=== PATIENT | female | born 1965 | race Caucasian/White ===

== ENCOUNTER → 2016-09-29 | Outpatient (CLI) | payer OTHER, BC ==
[~2016-09-29] MED LIST: DULO60CA44 PO; KLN1X PO; MULT-506 PO; PROP10TA7 PO; SUMA100T16 PO
== END | disposition home or self-care (01) ==
LOC: C.RDSM 10:50
PROVIDERS: ATTEND Orthopaedic Surgery
DX: Z09 Encounter for follow-up examination after completed treatment for conditions other than malignant neoplasm (principal); M79.632 Pain in left forearm

== ENCOUNTER → 2016-10-27 | Outpatient (CLI) | payer OTHER, BC | END | disposition home or self-care (01) | LOC: C.RDSM 09:15 | PROVIDERS: ATTEND Orthopaedic Surgery | DX: S52.2 Fracture of shaft of ulna (principal); X58.XXXA Exposure to other specified factors, initial encounter ==

== ENCOUNTER → 2016-12-01 | Outpatient (CLI) | payer OTHER, BC | END | disposition home or self-care (01) | LOC: C.RDSM 07:00 | PROVIDERS: ATTEND Orthopaedic Surgery | DX: S52.2 Fracture of shaft of ulna (principal); X58.XXXD Exposure to other specified factors, subsequent encounter ==

== ENCOUNTER → 2016-12-29 | Outpatient (CLI) | payer OTHER, BC | END | disposition home or self-care (01) | LOC: C.RDSM 08:15 | PROVIDERS: ATTEND Orthopaedic Surgery | DX: S52.2 Fracture of shaft of ulna (principal); X58.XXXD Exposure to other specified factors, subsequent encounter ==

== ENCOUNTER → 2017-01-03 | Outpatient (CLI) | payer OTHER, BC ==
--- NOTE | 2017-01-03 08:29 | DIAGNOSTIC IMAGING REPORT ---
CT LEFT UPPER EXTREMITY WITHOUT CT DOSE: 434.92 mGy.cm CLINICAL HISTORY: Ulnar fracture. Nonunion. TECHNIQUE: Helical images were acquired in the transverse plane. Sagittal and coronal reformatted images were acquired. A dose lowering technique was utilized adhering to the principles of ALARA. COMPARISON STUDY: Conventional radiographic study dated 12/29/2016 FINDINGS: There is an internally fixated fracture of the ulna at the junction of the middle and distal one third. Fracture has been fixated with a metallic plate and 6 screws. There is no evidence of hardware failure. 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 Fracture margins are somewhat sclerotic and there is no bony bridging. There are multiple additional screw tract defects within the ulna, consistent with a prior metallic plate. IMPRESSION: Internally fixated fracture of the ulna at the junction of middle and distal one third. 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 Electronically signed by: Benton Singh M.D. 01/03/2017 8:28 AM Dictated Date/Time: 01/03/2017 8:22 AM
== END | disposition home or self-care (01) ==
LOC: C.CTS 08:02
PROVIDERS: ATTEND Orthopaedic Surgery
DX: S52.2 Fracture of shaft of ulna (principal); X58.XXXD Exposure to other specified factors, subsequent encounter

== ENCOUNTER → 2017-01-26 | Outpatient (CLI) | payer OTHER, BC | END | disposition home or self-care (01) | LOC: C.LAB1850 09:10 | PROVIDERS: ATTEND Orthopaedic Surgery | DX: S52.2 Fracture of shaft of ulna (principal); X58.XXXA Exposure to other specified factors, initial encounter ==

== ENCOUNTER → 2017-02-06 | Outpatient (CLI) | payer OTHER, BC ==
--- NOTE | 2017-02-06 14:32 | DIAGNOSTIC IMAGING REPORT ---
LEFT UPPER EXTREMITY WITHOUT CLINICAL HISTORY: 51 years-old Female presenting with GREENSTICK FX SHAFT L ULNA,DUAL ENERGY CT. TECHNIQUE: Multidetector CT of the left forearm and wrist was performed without the use of intravenous contrast. IV contrast: None. A dose lowering technique was used consistent with the principles of ALARA (as low as reasonably achievable). COMPARISON: 01/03/2017. CT DOSE (mGy.cm): The estimated cumulative dose is 234.55 mGy.cm. FINDINGS: Visual Journalist topogram: Internal fixation hardware along the distal ulna noted. Cortical compression plate and screw fixation of the distal ulnar metadiaphysis across the obliquely oriented distal diaphysis fracture. Callus does not bridge the fracture plane, which again demonstrates sclerotic smooth margins, unchanged since the prior exam. Few additional screw tracks also noted through the distal ulna. No angulation at the fracture site. No hardware breakage. The distal radial ulnar joint is intact. Slight negative ulnar variance with irregularity of the distal ulna possibly suggesting degenerative change. Radiocarpal and intercarpal articulations preserved. Normal muscle bulk. Carpal tunnel normal. IMPRESSION: No significant change in appearance of the internally fixated distal ulnar diaphysis fracture with no interval increase in callus formation. No bridging of the fracture plane, consistent with nonunion. Electronically signed by: Jacob Pierre M.D. 02/06/2017 2:31 PM Dictated Date/Time: 02/06/2017 2:24 PM
== END | disposition home or self-care (01) ==
LOC: C.CTS 13:59
PROVIDERS: ATTEND Orthopaedic Surgery
DX: S52.2 Fracture of shaft of ulna (principal); X58.XXXD Exposure to other specified factors, subsequent encounter

== ENCOUNTER → 2017-02-20 | Outpatient (CLI) | payer BC ==
--- NOTE | 2017-02-20 13:34 | DIAGNOSTIC IMAGING REPORT ---
PELVIC COMPLETE NON OB HISTORY: 51 years-old Female . Acute generalized pelvic pain COMPARISON: None available TECHNIQUE: Multiple real-time sonography images of the deep pelvic structures were obtained transabdominally and transvaginally assessing grayscale appearance, color and spectral flow FINDINGS: TRANSABDOMINAL: Retroflexed uterus measures 4.8 x 1.9 x 2.4 cm. Endometrium measures 0.2 cm. Urinary bladder is partially collapsed. TRANSVAGINAL: Uterus measures 4.2 x 2.1 x 2.5 cm and is retroflexed. Endometrium measures 0.3 cm. Multiple nabothian cysts are seen, largest of which measures 1.1 x 0.8 x 1.1 cm. Right ovary measures 1.1 x 0.5 x 0.8 cm appears unremarkable and demonstrates arterial inflow and venous outflow. Left ovary measures 1.0 x 0.5 x 0.97 cm appears unremarkable and demonstrates arterial inflow and venous outflow. IMPRESSION: 1. Unremarkable sonographic appearance of the ovaries without evidence of torsion or mass. 2. Retroflexed uterus is noted without endometrial thickening. 3. Multiple nabothian cysts are seen, largest of which measures 1.1 x 0.8 x 1.1 cm. The above report was generated using voice recognition software. It may contain grammatical, syntax or spelling errors. Electronically signed by: Ceasar Cerna M.D. 02/20/2017 1:33 PM Dictated Date/Time: 02/20/2017 1:29 PM
== END | disposition home or self-care (01) ==
LOC: C.ULTR 10:54
PROVIDERS: ATTEND Physician Assistant
DX: R10.2 Pelvic and perineal pain (principal)

== ENCOUNTER → 2017-06-01 | Outpatient (CLI) | payer BC | END | disposition home or self-care (01) | LOC: C.RDSM 13:31 | PROVIDERS: ATTEND Orthopaedic Surgery | DX: S52.2 Fracture of shaft of ulna (principal); X58.XXXD Exposure to other specified factors, subsequent encounter ==

== ENCOUNTER → 2017-08-21 | Outpatient (CLI) | payer BC ==
[2017-08-21 13:30] LABS: BLOOD UREA NITROGEN 20 mg/dl (7-18); CALCIUM 9.3 mg/dl (8.5-10.1); CARBON DIOXIDE 27 mmol/L (21-32); CREATININE 1.25 mg/dl (0.60-1.20); GLUCOSE 95 mg/dl (70-99); POTASSIUM 4.4 mmol/L (3.5-5.1); SODIUM 138 mmol/L (136-145)
== END | disposition home or self-care (01) ==
LOC: C.LAB 12:16
PROVIDERS: ATTEND Physician Assistant
DX: R94.4 Abnormal results of kidney function studies (principal)

== ENCOUNTER → 2017-09-28 | Outpatient (CLI) | payer BC ==
[~2017-09-28] MED LIST changes: +CLB/200 PO; +PANT40TA PO
--- NOTE | 2017-09-28 16:13 | DIAGNOSTIC IMAGING REPORT ---
PA CHEST WITH ABDOMINAL SERIES CLINICAL HISTORY: Lower abdominal pain. Chronic constipation. FINDINGS: A PA chest radiograph is obtained. No prior studies are available for comparison at the time of dictation. The cardiomediastinal silhouette is unremarkable. The lungs and pleural spaces are clear. No pneumothorax is seen. The skeletal structures are osteopenic. The bony thorax is grossly intact. There is chronic appearing widening at the acromioclavicular joint. Fusion hardware is seen in the lower cervical spine. Supine and erect abdominal radiographs are obtained. No prior studies are available for comparison at the time of dictation. There is a nonobstructed abdominal bowel gas pattern. Moderate to severe colonic fecal retention is observed. No evidence of intraperitoneal free air is seen. There are no abnormal abdominal calcifications. Calcifications are noted in the left hemipelvis. Fallopian tube coils are noted in the pelvis. The lumbosacral spine and bony pelvis appear intact. IMPRESSION: 1. No active disease in the chest. 2. Nonobstructed abdominal bowel gas pattern noting moderate to severe constipation. Electronically signed by: Kraig Velasco M.D. 09/28/2017 4:12 PM Dictated Date/Time: 09/28/2017 4:09 PM
== END | disposition home or self-care (01) ==
LOC: C.RAD1850 15:42
PROVIDERS: ATTEND Registered Nurse
DX: K59.09 Other constipation (principal)

== ENCOUNTER → 2017-09-29 | Day surgery (SDC) | payer BC ==
[~2017-09-29] VITALS: Ht 188 cm; Wt 86.5 kg
[~2017-09-29] MED LIST changes: +LIDOCAINE HCL 2% 2 ML VIAL (20MG/ML) ONE; +PROPOFOL IV EMULSION 10 MG/ML 20 ML VIAL ONE; +SODIUM CHLORIDE 0.9% 500ML 500 ML IV ONE
[2017-09-29 11:02] VITALS: Ht 188 cm; Wt 86.5 kg
--- NOTE | 2017-09-29 11:24 | Endo History and Physical ---
History & Physical Date of Service: September 29, 2017. Chief Complaint: 52 yo CF who presents for EGD secondary to GERD. Referring Physician: Jessica Morrow PA-C History of Present Illness 52 yo CF who presents for EGD secondary to GERD. Past Medical History Arthritis, Anxiety, High Cholesterol, Depression Past Surgical History Hx Cardiac Surgery: No Hx Internal Defibrillator: No Hx Pacemaker: No Hx Abdominal Surgery: Yes Hx of Implantable Prosthesis: No Hx Post-Op Nausea and Vomiting: No Hx Cancer Surgery: No Hx Thoracic Surgery: No Hx Orthopedic: Yes Hx Urinary Tract Surgery: Yes Family History None Social History Smoking Status: Current Every Day Smoker Hx Substance Use: No Hx Alcohol Use: No Allergies Coded Allergies: Pregabalin (Unverified Allergy, Mild, hives/rash, 09/29/17) Tramadol (Unverified Adverse Reaction, Mild, GI SYMPTOMS, 02/26/15) Current Medications Reported Home Medications Medications Dose Route/Sig Max Daily Dose Days Date Category Protonix (Pantoprazole Sodium) 40 Mg Tab 40 Mg PO DAILY 09/29/17 Reported CeleBREX (Celecoxib) 200 Mg Cap 1 Cap PO DAILY 30 09/29/17 Reported Cymbalta (Duloxetine Hcl) 60 Mg Cap 60 Mg PO DAILY 02/26/15 Reported Multivitamin (Multivitamins) Tab 1 Tab PO DAILY 10/02/13 Reported Imitrex (Sumatriptan Succinate) 100 Mg Tab 100 Mg PO PRN 10/02/13 Reported Inderal (Propranolol HCl) 10 Mg Tab 10 Mg PO BID 10/02/13 Reported Clonazepam 1 Mg Tab 1 Mg PO BID 10/02/13 Reported Vital Signs Weight (Kilograms): 86.5 Height (Feet): 6 Height (Inches): 2 Date Time Temp Pulse Resp B/P (MAP) Pulse Ox O2 Delivery O2 Flow Rate FiO2 09/29/17 11:13 36.7 71 18 97/69 (78) 93 Room Air Physical Exam General Appearance: WD/WN, no apparent distress Respiratory/Chest: Auscultation: breath sounds normal Cardiovascular: Heart Auscultation: RRR Abdomen: Bowel Sounds: normal Inspection & Palpation: soft, non-distended, no tenderness, guarding & rebound Assessment and Plan Assessment: 52 yo CF who presents for EGD secondary to GERD. Plan: Proceed with EGD
--- NOTE | 2017-09-29 11:51 | Discharge Instructions ---
Endoscopy Patient Instructions Date / Procedure(s) Performed September 29, 2017. EGD Allergy Information Coded Allergies: Pregabalin (Unverified Allergy, Mild, hives/rash, 09/29/17) Tramadol (Unverified Adverse Reaction, Mild, GI SYMPTOMS, 02/26/15) Discharge Date / Findings September 29, 2017. Gastritis s/p biopsies Hiatal hernia Medication Instructions OK to resume all medications today as prescribed Reported Home Medications Medications Dose Route/Sig Max Daily Dose Days Date Category Protonix (Pantoprazole Sodium) 40 Mg Tab 40 Mg PO DAILY 09/29/17 Reported CeleBREX (Celecoxib) 200 Mg Cap 1 Cap PO DAILY 30 09/29/17 Reported Cymbalta (Duloxetine Hcl) 60 Mg Cap 60 Mg PO DAILY 02/26/15 Reported Multivitamin (Multivitamins) Tab 1 Tab PO DAILY 10/02/13 Reported Imitrex (Sumatriptan Succinate) 100 Mg Tab 100 Mg PO PRN 10/02/13 Reported Inderal (Propranolol HCl) 10 Mg Tab 10 Mg PO BID 10/02/13 Reported Clonazepam 1 Mg Tab 1 Mg PO BID 10/02/13 Reported Provider Instructions Activity Restrictions - No exercising or heavy lifting for 24 hours. - Do not drink alcohol the day of the procedure. - Do not drive a car or operate machinery until the day after the procedure. - Do not make any important decisions or sign important papers in 24 hours after the procedure. Following Day: - Return to full activity which may include returning to work/school. Diet Start your diet with liquids and light foods (jello, soup, juice, toast). Then eat your usual diet if not nauseated. Treatment For Common After Affects For mild abdominal pain, bloating, or excessive gas: - Rest - Eat lightly - Lie on right side Follow-Up Information Follow-up with Jessica Morrow PA-C as scheduled Anesthesia Information What You Should Know You have had a procedure that required some medicine to reduce anxiety and discomfort. This treatment is called moderate sedation. After receiving the treatment, you may be sleepy, but you will be able to breathe on your own. The effects of the treatment may last for several hours. Follow these instructions along with Activity/Diet recommendations noted above: * Do NOT do anything where dizziness or clumsiness would be dangerous. * Rest quietly at home today, then you can be up and about tomorrow. * Have a responsible person stay with you the rest of today. * You may have had an I.V. today. If so, you may take the dressing off later today. Recommendations Call your doctor if: * Trouble breathing * Continuous vomiting for more than 24 hours * Temperature above 101 degrees * Severe abdominal pain or bloating * Pain not relieved by pain medicine ordered * There is increased drainage or redness from any incision * A large amount of rectal bleeding greater than 2-3 tablespoons. (If you had a polyp/s removed or have hemorrhoids, a small amount of blood - from the rectum is to be expected.) * You have any unanswered questions or concerns. IN THE EVENT OF A SERIOUS EMERGENCY, GO TO THE NEAREST EMERGENCY ROOM Your discharge instructions were prepared by provider Jere Mitchell. Patient Instructions Signature Page Hamida Oneal Patient (or Guardian) Signature/Date: I have read and understand the instructions given to me by my caregivers. Caregiver/RN/Doctor Signature/Date: The above-named patient and/or guardian has received patient instructions on this date. + Original Patient Signature Page (only) stays with chart. Please make copy for patient.
--- NOTE | 2017-09-29 12:12 | GI REPORT ---
Patient Name: Hamida Oneal Procedure Date: 09/29/2017 11:41 AM Date of : 1965 Admit Type: Outpatient Age: 52 Gender: Female Attending MD: Jere Mitchell DO Procedure: Upper GI endoscopy Providers: Jere Mitchell DO Referring MD: Daniela Reagan Indications: Suspected gastro-esophageal reflux disease Medicines: Monitored Anesthesia Care Complications: No immediate complications. Estimated Blood Loss: Estimated blood loss: none. Procedure: Pre-Anesthesia Assessment: - Prior to the procedure, a History and Physical was performed, and patient medications and allergies were reviewed. The patient's tolerance of previous anesthesia was also reviewed. The risks and benefits of the procedure and the sedation options and risks were discussed with the patient. All questions were answered, and informed consent was obtained. Prior Anticoagulants: The patient has taken no previous anticoagulant or antiplatelet agents. ASA Grade Assessment: II - A patient with mild systemic disease. After reviewing the risks and benefits, the patient was deemed in satisfactory condition to undergo the procedure. After obtaining informed consent, the endoscope was passed under direct vision. Throughout the procedure, the patient's blood pressure, pulse, and oxygen saturations were monitored continuously. The On-site loaner was introduced through the mouth, and advanced to the second part of duodenum. The upper GI endoscopy was accomplished without difficulty. The patient tolerated the procedure well. Findings: The esophagus was normal. A small hiatal hernia was present. Localized moderate inflammation characterized by erosions and erythema was found in the gastric antrum. Biopsies were taken with a cold forceps for histology. The examined duodenum was normal. Impression: - Normal esophagus. - Small hiatal hernia. - Gastritis. Biopsied. - Normal examined duodenum. Recommendation: - Resume previous diet. - Continue present medications. - Await pathology results. - Return to GI office as previously scheduled. Jere Mitchell DO 09/29/2017 12:11:26 PM This report has been signed electronically. Note Initiated On: 09/29/2017 11:41 AM Number of Addenda: 0 I attest to the content of the Intraoperative Record and orders documented therein, exceptions below {[id number]}
[2017-09-29 12:25] VITALS: BP 93/72; PULSE 72; O2SAT 97
--- NOTE | 2017-09-29 13:08 | Anesthesiology Progress Note ---
Anesthesia Post Op Note Date & Time September 29, 2017 at 13:07 Vital Signs Pain Intensity: 0 Vital Signs Past 12 Hours Date Time Temp Pulse Resp B/P (MAP) Pulse Ox O2 Delivery O2 Flow Rate FiO2 09/29/17 12:25 72 18 93/72 (79) 97 Room Air 09/29/17 12:10 69 18 99/74 (82) 97 Room Air 09/29/17 11:55 70 18 89/57 (68) 92 Room Air 09/29/17 11:13 36.7 71 18 97/69 (78) 93 Room Air Notes Mental Status: alert / awake / arousable, participated in evaluation Pt Amnestic to Procedure: Yes Nausea / Vomiting: adequately controlled Pain: adequately controlled Airway Patency, RR, SpO2: stable & adequate BP & HR: stable & adequate Hydration State: stable & adequate Anesthetic Complications: no major complications apparent
--- NOTE | 2017-09-29 13:09 | Anesthesiology Progress Note ---
Anesthesia Post Op Note Date & Time September 29, 2017 at 13:08 Vital Signs Pain Intensity: 0 Vital Signs Past 12 Hours Date Time Temp Pulse Resp B/P (MAP) Pulse Ox O2 Delivery O2 Flow Rate FiO2 09/29/17 12:25 72 18 93/72 (79) 97 Room Air 09/29/17 12:10 69 18 99/74 (82) 97 Room Air 09/29/17 11:55 70 18 89/57 (68) 92 Room Air 09/29/17 11:13 36.7 71 18 97/69 (78) 93 Room Air Notes Mental Status: alert / awake / arousable, participated in evaluation Pt Amnestic to Procedure: Yes Nausea / Vomiting: adequately controlled Pain: adequately controlled Airway Patency, RR, SpO2: stable & adequate BP & HR: stable & adequate Hydration State: stable & adequate Anesthetic Complications: no major complications apparent
== END | disposition home or self-care (01) ==
LOC: C.GI 10:29
PROVIDERS: ATTEND Internal Medicine
DX: K21.9 Gastro-esophageal reflux disease without esophagitis (principal); K44.9 Diaphragmatic hernia without obstruction or gangrene; K29.70 Gastritis, unspecified, without bleeding; F41.9 Anxiety disorder, unspecified; F32.9 Major depressive disorder, single episode, unspecified

== ENCOUNTER → 2017-10-10 | Outpatient (CLI) | payer BC ==
[~2017-10-10] MED LIST changes: -LIDOCAINE HCL 2% 2 ML VIAL (20MG/ML) ONE; -PROPOFOL IV EMULSION 10 MG/ML 20 ML VIAL ONE; -SODIUM CHLORIDE 0.9% 500ML 500 ML IV ONE
--- NOTE | 2017-10-11 15:24 | MAMMOGRAPHY REPORT ---
BILATERAL DIGITAL SCREENING MAMMOGRAM TOMOSYNTHESIS WITH CAD: 10/10/2017 CLINICAL HISTORY: Routine screening. Patient has no complaints. TECHNIQUE: Breast tomosynthesis in addition to standard 2D mammography was performed. Current study was also evaluated with a Computer Aided Detection (CAD) system. COMPARISON: Comparison is made to exams dated: 09/17/2014 mammogram, 03/30/2010 mammogram - [facility], 12/16/2008, 11/27/2007, and 11/27/2007. BREAST COMPOSITION: The tissue of both breasts is heterogeneously dense, which may obscure small mas ses. FINDINGS: Mild involutional changes comparing to more remote prior mammograms. There are a few benig n calcifications in the breasts. No suspicious mass, architectural distortion or cluster of microcalc ifications is seen. IMPRESSION: ACR BI-RADS CATEGORY 2: BENIGN There is no mammographic evidence of malignancy. A 1 year screening mammogram is recommended. The pa tient will receive written notification of the results. Approximately 10% of breast cancers are not detected with mammography. A negative mammographic report should not delay biopsy if a clinically suggestive mass is present. Harriet Proctor M.D. ay/:10/10/2017 17:13:21 Local Telephone Operator: Saniya Chávez, M, [facility] letter sent: Normal 1/2 BI-RADS Code: ACR BI-RADS Category 2: Benign
== END | disposition home or self-care (01) ==
LOC: C.MAMM 10:57
PROVIDERS: ATTEND Physician Assistant
DX: Z12.31 Encounter for screening mammogram for malignant neoplasm of breast (principal)

== ENCOUNTER → 2017-12-26 | Outpatient (CLI) | payer BC ==
[~2017-12-26] MED LIST changes: +AMT100 PO; +LIPITOR PO
[2017-12-26 17:28] LABS: BASO % 0.2 %; BASO ABS # 0.02 K/uL (0-0.2); EOS % 1.4 %; EOS ABS # 0.15 K/uL (0-0.5); HEMATOCRIT 39.9 % (37-47); HEMOGLOBIN 13.3 g/dL (12.0-16.0); IG# 0.02 K/uL (0.00-0.02); LYMPH % 42.9 %; LYMPH ABS # 4.56 K/uL (1.2-3.4); MEAN CELL VOLUME 98.5 fL (80-100); MEAN CORPUSCULAR HEMOGLOBIN 32.8 pg (25-34); MEAN CORPUSCULAR HGB CONC 33.3 g/dl (32-36); MEAN PLATELET VOLUME 9.8 fL (7.4-10.4); MONO % 5.6 %; NEUT % 49.7 %; NEUT ABS # 5.27 K/uL (1.4-6.5); PLATELET COUNT 285 K/uL (130-400); RED CELL DISTRIBUTION WIDTH CV 13.8 % (11.5-14.5); RED CELL DISTRIBUTION WIDTH SD 49.5 fL (36.4-46.3); WHITE BLOOD COUNT 10.62 K/uL (4.8-10.8)
[2017-12-26 17:59] LABS: ALBUMIN 3.8 gm/dl (3.4-5.0); ALKALINE PHOSPHATASE 117 U/L (45-117); ALT/SGPT 26 U/L (12-78); AST/SGOT 22 U/L (15-37); BLOOD UREA NITROGEN 12 mg/dl (7-18); CALCIUM 8.6 mg/dl (8.5-10.1); CARBON DIOXIDE 22 mmol/L (21-32); CREATININE 1.16 mg/dl (0.60-1.20); GLUCOSE 127 mg/dl (70-99); POTASSIUM 3.9 mmol/L (3.5-5.1); SODIUM 137 mmol/L (136-145); TOTAL PROTEIN 7.3 gm/dl (6.4-8.2)
== END | disposition home or self-care (01) ==
LOC: C.LABBFT 12:54
PROVIDERS: ATTEND Registered Nurse
DX: K59.09 Other constipation (principal)

== ENCOUNTER → 2017-12-28 | Outpatient (CLI) | payer BC | END | disposition home or self-care (01) | LOC: C.RDSM 08:00 | PROVIDERS: ATTEND Orthopaedic Surgery | DX: Z98.890 Other specified postprocedural states (principal) ==

== ENCOUNTER → 2018-01-02 | Day surgery (SDC) | payer BC ==
[2017-12-29 13:45] VITALS: Ht 188 cm; Wt 84.1 kg
[~2018-01-02] VITALS: Ht 188 cm; Wt 84.1 kg
[~2018-01-02] MED LIST changes: -CLB/200 PO; +LIDOCAINE HCL 2% 2 ML VIAL (20MG/ML) ONE; +PROPOFOL IV EMULSION 10 MG/ML 20 ML VIAL ONE; +SODIUM CHLORIDE 0.9% 500ML 500 ML IV ONE
--- NOTE | 2018-01-02 11:04 | Endo History and Physical ---
History & Physical Date of Service: Jan 02, 2018. Chief Complaint: Lower Abdominal pain Referring Physician: Xin Morrow History of Present Illness 52 yo CF who presents for colonoscopy secondary to lower abdominal pain. Past Medical History Arthritis, Anxiety, High Cholesterol, Depression Past Surgical History Hx Cardiac Surgery: No Hx Internal Defibrillator: No Hx Pacemaker: No Hx Abdominal Surgery: Yes (TUBAL LIGATION, HERNIA SX X2) Hx of Implantable Prosthesis: No Hx Post-Op Nausea and Vomiting: No Hx Cancer Surgery: No Hx Thoracic Surgery: No Hx Orthopedic: Yes (CERVICAL FUSION, ULNAR SX x5) Hx Urinary Tract Surgery: No Family History None Social History Smoking Status: Current Every Day Smoker Hx Substance Use: No Hx Alcohol Use: No Allergies Coded Allergies: Pregabalin (Verified Allergy, Mild, hives/rash, 01/02/18) Tramadol (Verified Adverse Reaction, Mild, GI SYMPTOMS, 01/02/18) Current Medications Reported Home Medications Medications Dose Route/Sig Max Daily Dose Days Date Category [Lipitor] PO HS 12/29/17 Reported Amitriptyline HCl 100 Mg Tab 1 Tab PO HS 12/29/17 Reported Protonix (Pantoprazole Sodium) 40 Mg Tab 40 Mg PO DAILY 09/29/17 Reported Cymbalta (Duloxetine Hcl) 60 Mg Cap 60 Mg PO BID 02/26/15 Reported Multivitamin (Multivitamins) Tab 1 Tab PO DAILY 10/02/13 Reported Imitrex (Sumatriptan Succinate) 100 Mg Tab 100 Mg PO PRN 10/02/13 Reported Inderal (Propranolol HCl) 10 Mg Tab 10 Mg PO BID 10/02/13 Reported Clonazepam 1 Mg Tab 1 Mg PO BID 10/02/13 Reported Vital Signs Weight (Kilograms): 84.09 Height (Feet): 6 Height (Inches): 2 Date Time Temp Pulse Resp B/P (MAP) Pulse Ox O2 Delivery O2 Flow Rate FiO2 01/02/18 10:25 36.8 76 20 137/92 (107) 94 Room Air Physical Exam General Appearance: WD/WN, no apparent distress Respiratory/Chest: Auscultation: breath sounds normal Cardiovascular: Heart Auscultation: RRR Abdomen: Bowel Sounds: normal Inspection & Palpation: soft, non-distended, no tenderness, guarding & rebound Assessment and Plan Assessment: 52 yo CF who presents for colonoscopy secondary to lower abdominal pain. Plan: Proceed with colonoscopy.
--- NOTE | 2018-01-02 12:32 | Discharge Instructions ---
Endoscopy Patient Instructions Date / Procedure(s) Performed Jan 02, 2018. Colonoscopy Allergy Information Coded Allergies: Pregabalin (Verified Allergy, Mild, hives/rash, 01/02/18) Tramadol (Verified Adverse Reaction, Mild, GI SYMPTOMS, 01/02/18) Discharge Date / Findings Jan 02, 2018. Stool studies Random colon biopsies Poor bowel prep Medication Instructions OK to resume all medications today as prescribed Reported Home Medications Medications Dose Route/Sig Max Daily Dose Days Date Category [Lipitor] PO HS 12/29/17 Reported Amitriptyline HCl 100 Mg Tab 1 Tab PO HS 12/29/17 Reported Protonix (Pantoprazole Sodium) 40 Mg Tab 40 Mg PO DAILY 09/29/17 Reported Cymbalta (Duloxetine Hcl) 60 Mg Cap 60 Mg PO BID 02/26/15 Reported Multivitamin (Multivitamins) Tab 1 Tab PO DAILY 10/02/13 Reported Imitrex (Sumatriptan Succinate) 100 Mg Tab 100 Mg PO PRN 10/02/13 Reported Inderal (Propranolol HCl) 10 Mg Tab 10 Mg PO BID 10/02/13 Reported Clonazepam 1 Mg Tab 1 Mg PO BID 10/02/13 Reported Provider Instructions Activity Restrictions - No exercising or heavy lifting for 24 hours. - Do not drink alcohol the day of the procedure. - Do not drive a car or operate machinery until the day after the procedure. - Do not make any important decisions or sign important papers in 24 hours after the procedure. Following Day: - Return to full activity which may include returning to work/school. Diet Start your diet with liquids and light foods (jello, soup, juice, toast). Then eat your usual diet if not nauseated. Treatment For Common After Affects For mild abdominal pain, bloating, or excessive gas: - Rest - Eat lightly - Lie on right side Follow-Up Information Follow-up with Xin Morrow as scheduled Anesthesia Information What You Should Know You have had a procedure that required some medicine to reduce anxiety and discomfort. This treatment is called moderate sedation. After receiving the treatment, you may be sleepy, but you will be able to breathe on your own. The effects of the treatment may last for several hours. Follow these instructions along with Activity/Diet recommendations noted above: * Do NOT do anything where dizziness or clumsiness would be dangerous. * Rest quietly at home today, then you can be up and about tomorrow. * Have a responsible person stay with you the rest of today. * You may have had an I.V. today. If so, you may take the dressing off later today. Recommendations Call your doctor if: * Trouble breathing * Continuous vomiting for more than 24 hours * Temperature above 101 degrees * Severe abdominal pain or bloating * Pain not relieved by pain medicine ordered * There is increased drainage or redness from any incision * A large amount of rectal bleeding greater than 2-3 tablespoons. (If you had a polyp/s removed or have hemorrhoids, a small amount of blood - from the rectum is to be expected.) * You have any unanswered questions or concerns. IN THE EVENT OF A SERIOUS EMERGENCY, GO TO THE NEAREST EMERGENCY ROOM Your discharge instructions were prepared by provider Jere Mitchell. Patient Instructions Signature Page Hamida Oneal Patient (or Guardian) Signature/Date: I have read and understand the instructions given to me by my caregivers. Caregiver/RN/Doctor Signature/Date: The above-named patient and/or guardian has received patient instructions on this date. + Original Patient Signature Page (only) stays with chart. Please make copy for patient.
--- NOTE | 2018-01-02 12:39 | GI REPORT ---
Patient Name: Hamida Oneal Procedure Date: 01/02/2018 11:23 AM Date of : 1965 Admit Type: Outpatient Age: 52 Gender: Female Attending MD: Jere Mitchell DO Procedure: Colonoscopy Providers: Jere Mitchell DO Referring MD: Ollie Bustos Md Indications: Abdominal pain in the left lower quadrant, Abdominal pain in the right lower quadrant Medicines: Monitored Anesthesia Care Complications: No immediate complications. Estimated Blood Loss: Estimated blood loss: none. Procedure: Pre-Anesthesia Assessment: - Prior to the procedure, a History and Physical was performed, and patient medications and allergies were reviewed. The patient's tolerance of previous anesthesia was also reviewed. The risks and benefits of the procedure and the sedation options and risks were discussed with the patient. All questions were answered, and informed consent was obtained. Prior Anticoagulants: The patient has taken no previous anticoagulant or antiplatelet agents. ASA Grade Assessment: II - A patient with mild systemic disease. After reviewing the risks and benefits, the patient was deemed in satisfactory condition to undergo the procedure. After I obtained informed consent, the scope was passed under direct vision. Throughout the procedure, the patient's blood pressure, pulse, and oxygen saturations were monitored continuously. The scope was introduced through the anus and advanced to the terminal ileum. The colonoscopy was performed without difficulty. The patient tolerated the procedure well. The quality of the bowel preparation was poor. The terminal ileum, ileocecal valve, appendiceal orifice, and rectum were photographed. Findings: The perianal and digital rectal examinations were normal. Copious quantities of semi-liquid stool was found in the entire colon, precluding visualization. Several random biopsies were obtained with cold forceps for histology in the entire colon. Fluid aspiration for stool studies was performed in the entire colon. Impression: - Preparation of the colon was poor. - Stool in the entire examined colon. - Several random biopsies were obtained in the entire colon. - Fluid aspiration was performed. Recommendation: - Resume previous diet. - Continue present medications. - Await pathology results. - Return to primary care physician as previously scheduled. Jere Mitchell DO 01/02/2018 12:39:13 PM This report has been signed electronically. Note Initiated On: 01/02/2018 11:23 AM Number of Addenda: 0 I attest to the content of the Intraoperative Record and orders documented therein, exceptions below {[id number]}
[2018-01-02 12:42] VITALS: BP 104/69; PULSE 71; O2SAT 98
--- NOTE | 2018-01-02 13:32 | Anesthesiology Progress Note ---
Anesthesia Post Op Note Date & Time Jan 02, 2018 at 13:32 Vital Signs Pain Intensity: 0 Vital Signs Past 12 Hours Date Time Temp Pulse Resp B/P (MAP) Pulse Ox O2 Delivery O2 Flow Rate FiO2 01/02/18 12:42 71 18 104/69 (81) 98 Room Air 01/02/18 12:27 75 18 109/68 (82) 100 Room Air 01/02/18 12:12 74 16 104/69 (81) 95 Room Air 01/02/18 10:25 36.8 76 20 137/92 (107) 94 Room Air Notes Mental Status: alert / awake / arousable, participated in evaluation Pt Amnestic to Procedure: Yes Nausea / Vomiting: adequately controlled Pain: adequately controlled Airway Patency, RR, SpO2: stable & adequate BP & HR: stable & adequate Hydration State: stable & adequate Anesthetic Complications: no major complications apparent
== END | disposition home or self-care (01) ==
LOC: C.GI 09:33
PROVIDERS: ATTEND Internal Medicine
DX: R10.32 Left lower quadrant pain (principal); R10.31 Right lower quadrant pain; F17.200 Nicotine dependence, unspecified, uncomplicated; E78.00 Pure hypercholesterolemia, unspecified; F32.9 Major depressive disorder, single episode, unspecified; M79.7 Fibromyalgia; F41.9 Anxiety disorder, unspecified; Z88.8 Allergy status to other drugs, medicaments and biological substances; Z79.899 Other long term (current) drug therapy; M19.90 Unspecified osteoarthritis, unspecified site

== ENCOUNTER 2019-04-04 12:54 | Observation (INO) ==
--- NOTE | 2019-03-06 08:37 | Anesthesiology Consultation ---
Date of Service March 06, 2019 Assessment & Plan (1) Encounter for pre-operative examination: - Decreased cervical extension s/p ACDF/hx glidescope intubation: ACDF C5-C7 with iliac crest bone graft: 03/10/14: Grade view 1, Glidescope #3, ETT 7.5 at [facility] - Patient scheduled for outpatient left knee arthroscopy week prior to surgery at [facility] [place]. Surgeon made aware. Patient will contact PAT/surgeon if any issues with surgery. Chart Review Chart Review: Pending: Refer to Additional Notes / Consult section (pending preop labs) and Patient seen in Pre Admission Testing Teaching & Discussion Pre-Anesthesia Teaching/Discussion Notes: Instructed NPO after midnight before surgery,except medications with 15 cc of water. Medication instructions provided according to the PAT guidelines. History Surgery Operation Date: 03/21/19 07:00 Proposed Procedures p Laparoscopic Hiatal Hernia Repair with Fundoplication, - Tray Marion DO s Intra-Op Esophagogastroduodenoscopy - Tray Marion DO Height/Weight Height: 6 ft 2 in Weight: 84.9 kg Allergies Allergy/AdvReac Type Severity Reaction Status Date / Time pregabalin Allergy Unknown hives/rash, Verified 03/06/19 08:35 pruritus tramadol AdvReac Mild GI upset Verified 03/06/19 08:35 Lyrica CAPS Allergy Unknown hives, Uncoded 03/06/19 08:35 lips/cheeks swelling Flexeril TABS AdvReac Unknown GI upset Uncoded 03/06/19 08:35 Medications Home Medications Medication Instructions Recorded Confirmed Last Taken amitriptyline 100 mg tablet 100 mg PO HS 12/31/18 03/05/19 Unknown atorvastatin 10 mg tablet 10 mg PO HS 12/31/18 03/05/19 Unknown lorazepam 0.5 mg tablet 0.5 mg PO BID 12/31/18 03/05/19 Unknown lubiprostone 24 mcg capsule 24 mcg PO BID 12/31/18 03/05/19 Unknown pantoprazole 40 mg tablet,delayed 40 mg PO BID 12/31/18 03/05/19 Unknown release propranolol 40 mg tablet 40 mg PO BID 12/31/18 03/05/19 Unknown ranitidine 300 mg capsule 300 mg PO HS 12/31/18 03/05/19 Unknown sumatriptan 100 mg tablet 100 mg PO ONCE PRN tab 12/31/18 03/05/19 Unknown buspirone 10 mg PO BID 03/05/19 03/05/19 Unknown cyclobenzaprine 10 mg PO TID 03/05/19 03/05/19 Unknown duloxetine [Cymbalta] 60 mg PO BID 03/05/19 03/05/19 Unknown gabapentin 300 mg PO HS 03/05/19 03/05/19 Unknown oxycodone-acetaminophen [Percocet] 1 tab PO BID 03/05/19 03/05/19 Unknown Past Medical History Medical History History of difficult intubation ACDF C5-C7 with iliac crest bone graft: 03/10/14: Grade view 1, Glidescope #3, ETT 7.5 at [facility] Anxiety Degenerative disc disease cervical Depression Essential tremor occasional hands + head- on propranolol Fibromyalgia GERD (gastroesophageal reflux disease) occasional Hiatal hernia Hyperlipidemia Migraine hx Osteoarthritis Temporomandibular joint disorder left side clicking; no locking Exercise / Class Metabolic Activity II 4-5 Yardwork/Stairs/Walk up hill Past Family History Family History Mother Family history of diabetes mellitus Past Surgical History Surgical History H/O hand surgery X [id number] FOR FRACTURE/NON BONE HEALING History of arthroscopy LEFT KNEE MENISCUS REPAIR History of bilateral tubal ligation History of colonoscopy History of elbow surgery TENDONS-LEFT History of esophagogastroduodenoscopy (EGD) History of herniorrhaphy X 2 History of repair of rotator cuff RIGHT History of tooth extraction WISDOM TEETH S/P cervical spinal fusion Past Anesthesia History Difficult Airway ( ACDF C5-C7 with iliac crest bone graft: 03/10/14: Grade view 1, Glidescope #3, ETT 7.5 at [facility]) and No Family Hx of Anesthesia Complications History of PONV No Hx of PONV and No Hx of Motion Sickness Social History Smoking Status: Current every day smoker tobacco type: cigarettes Smoking cigarettes per day: 15 CIGARETTES/DAY X 20 YRS Do You Dip or Chew Tobacco: No Hx Alcohol Use: No Hx Substance Use: No Review of Systems Occasional reflux/palpitations. Patient denies chest pain, shortness of breath, dyspnea on exertion, cough, wheezing. Physical Exam Vital Signs VITALS BP 99/71 (per patient, BP typically on the lower to normal range) P 80 TEMP 97.9 SP02 97%RA RESP 16 PHYSICAL Decreased cervical extension s/p cervical fusion. Full TMJ range of motion. TMD 3.5 finger breaths Mallampati Score 2 Dentition: missing molars. several crowns Lungs: clear throughout to auscultation Cardiac: regular rate and rhythm, no murmurs noted Spine: normal Carotid arteries: negative bruit Extremities: no edema Testing Electrocardiogram Date: 03/04/19 NSR at 73bpm. Possible LAE.
--- NOTE | 2019-03-06 08:37 | PAT Medication Instructions ---
Medication Instructions Date of Service March 06, 2019 Home Medications amitriptyline 100 mg tablet 100 mg PO HS atorvastatin 10 mg tablet 10 mg PO HS lorazepam 0.5 mg tablet 0.5 mg PO BID lubiprostone 24 mcg capsule 24 mcg PO BID pantoprazole 40 mg tablet,delayed release 40 mg PO BID propranolol 40 mg tablet 40 mg PO BID ranitidine 300 mg capsule 300 mg PO HS sumatriptan 100 mg tablet 100 mg PO ONCE PRN buspirone 10 mg PO BID cyclobenzaprine 10 mg PO TID duloxetine [Cymbalta] 60 mg PO BID gabapentin 300 mg PO HS oxycodone-acetaminophen [Percocet] 1 tab PO BID DO NOT take the morning of surgery lubiprostone 24 mcg capsule 24 mcg PO BID cyclobenzaprine 10 mg PO TID Take morning of surgery With a small sip of water, OTHERWISE NOTHING TO EAT OR DRINK AFTER MIDNIGHT: lorazepam 0.5 mg tablet 0.5 mg PO BID pantoprazole 40 mg tablet,delayed release 40 mg PO BID propranolol 40 mg tablet 40 mg PO BID sumatriptan 100 mg tablet 100 mg PO ONCE PRN (if needed) buspirone 10 mg PO BID duloxetine [Cymbalta] 60 mg PO BID oxycodone-acetaminophen [Percocet] 1 tab PO BID (okay to take up to 4 hours prior to surgery if needed) Take evening before surgery amitriptyline 100 mg tablet 100 mg PO HS atorvastatin 10 mg tablet 10 mg PO HS lorazepam 0.5 mg tablet 0.5 mg PO BID lubiprostone 24 mcg capsule 24 mcg PO BID pantoprazole 40 mg tablet,delayed release 40 mg PO BID propranolol 40 mg tablet 40 mg PO BID ranitidine 300 mg capsule 300 mg PO HS sumatriptan 100 mg tablet 100 mg PO ONCE PRN (if needed) buspirone 10 mg PO BID cyclobenzaprine 10 mg PO TID duloxetine [Cymbalta] 60 mg PO BID gabapentin 300 mg PO HS oxycodone-acetaminophen [Percocet] 1 tab PO BID Other Notes If you have any questions please call us at [phone] or [phone] or [phone] or [phone]
[2019-03-06 11:06] LABS: Basophils # (auto) 0.03 K/uL (0-0.2); Basophils % (auto) 0.3 %; Eosinophils % (auto) 1.8 %; Hematocrit (blood only) 37.8 % (37-47); Hemoglobin 13.1 g/dL (12.0-16.0); Immature Granulocytes # (auto) 0.02 K/uL (0.00-0.02); Immature Granulocytes % (auto) 0.2 %; Lymphocytes # (auto) 4.39 K/uL (1.2-3.4); Mean Corpuscular Hemoglobin 33.6 pg (25-34); Mean Corpuscular Hgb Conc 34.7 g/dL (32-36); Mean Corpuscular Volume 96.9 fL (80-100); Mean Platelet Volume 9.4 fL (7.4-10.4); Monocytes # (auto) 0.78 K/uL (0.11-0.59); Monocytes % (auto) 7.1 %; Neutrophils # (auto) 5.56 K/uL (1.4-6.5); Neutrophils % (auto) 50.6 %; Platelet Count 297 K/uL (130-400); RDW Coefficient of Variation 13.8 % (11.5-14.5); RDW Standard Deviation 49.1 fL (36.4-46.3); White Blood Count 10.98 K/uL (4.8-10.8)
[2019-03-06 11:18] LABS: BUN Creatinine Ratio 13.1 (10-20); Est GFR (African American) 67.4; Est GFR (Non-African American) 58.2; Potassium 3.9 mmol/L (3.5-5.1)
[~2019-04-04 12:54] MED LIST changes: -AMT100 PO; +CEFAZOLIN 2000MG 2,000 MG/15 ML SYR IV SCH; -DULO60CA44 PO; -KLN1X PO; -LIDOCAINE HCL 2% 2 ML VIAL (20MG/ML) ONE; -LIPITOR PO; +LR 15ML/HR IV SCH; -MULT-506 PO; -PANT40TA PO; -PROP10TA7 PO; -PROPOFOL IV EMULSION 10 MG/ML 20 ML VIAL ONE; -SODIUM CHLORIDE 0.9% 500ML 500 ML IV ONE; -SUMA100T16 PO
[2019-04-04] MEDS ORDERED: ONDANSETRON INJ 2 MG/ML 2 ML VIAL ONE ×2 (13:51→16:35)
[2019-04-04] MEDS ORDERED: DEXAMETHASONE SOD INJ 4 MG/ML VIAL ONE (13:51)
[2019-04-04] MEDS ORDERED: LIDOCAINE HCL 2% 2 ML VIAL/AMP(20MG/ML) INFIL ONE (13:51)
[2019-04-04] MEDS ORDERED: NEOSTIGMINE METHYLSULFATE 5 MG/5 ML SYR ONE ×2 (13:51→16:32)
[2019-04-04] MEDS ORDERED: MIDAZOLAM HCL 1 MG/ML 2ML VIAL ONE (13:51)
[2019-04-04] MEDS ORDERED: fentaNYL citrate 100 MCG/2 ML VIAL ONE (13:51)
[2019-04-04] MEDS ORDERED: PROPOFOL IV EMULSION 10 MG/ML 20 ML VIAL IV ONE (13:51)
[2019-04-04] MEDS ORDERED: GLYCOPYRROLATE 0.2 MG/ML VIAL ONE ×2 (13:51→16:32)
--- NOTE | 2019-04-04 14:10 | History & Physical Report ---
Date of Service April 04, 2019 Assessment & Plan (1) Hiatal hernia with GERD: We did discussion both in the office as well as today regarding her options. Because of her negative motility test she would be a candidate for a full 360 degree fundoplication. We discussed that she could continue conservative management of her symptoms versus repair of the hiatal hernia with the fundoplication. We discussed risks which would include bleeding, infection, DVT, PE, CA, CVA, injury to other organs such as spleen stomach esophagus diaphragm etc. We discussed possibility of having some dysphagia following the procedure. Following all this I answered her questions. We will proceed with laparoscopic hiatal hernia repair as well as with 360 degree fundoplication. History of Present Illness Primary Care Provider: Jessica Morrow PA-C Patient with a known hiatal hernia and acid reflux who has rather severe symptoms on a daily basis despite conservative management. She had a thorough work-up including motility test which was negative for any esophageal dysmotility disorder. She has a known hiatal hernia and active reflux. Allergies Allergy/AdvReac Type Severity Reaction Status Date / Time pregabalin Allergy Unknown hives/rash, Verified 04/04/19 13:26 pruritus tramadol AdvReac Mild GI upset Verified 04/04/19 13:26 Lyrica CAPS Allergy Unknown hives, Uncoded 04/04/19 13:26 lips/cheeks swelling Flexeril TABS AdvReac Unknown GI upset Uncoded 04/04/19 13:26 Home Medications Home Medications Medication Instructions Recorded Confirmed Type amitriptyline 100 mg tablet 100 mg PO HS 12/31/18 04/04/19 History atorvastatin 10 mg tablet 10 mg PO HS 12/31/18 04/04/19 History lorazepam 0.5 mg tablet 0.5 mg PO BID 12/31/18 04/04/19 History lubiprostone 24 mcg capsule 24 mcg PO BID 12/31/18 04/04/19 History pantoprazole 40 mg tablet,delayed 40 mg PO BID 12/31/18 04/04/19 History release propranolol 40 mg tablet 40 mg PO BID 12/31/18 04/04/19 History ranitidine 300 mg capsule 300 mg PO HS 12/31/18 04/04/19 History sumatriptan 100 mg tablet 100 mg PO ONCE PRN tab 12/31/18 04/04/19 History buspirone 10 mg PO BID 03/05/19 04/04/19 History cyclobenzaprine 10 mg PO TID 03/05/19 04/04/19 History duloxetine [Cymbalta] 60 mg PO BID 03/05/19 04/04/19 History gabapentin 300 mg PO HS 03/05/19 04/04/19 History oxycodone-acetaminophen [Percocet] 1 tab PO BID PRN 03/05/19 04/04/19 History Past Med/Surg History Medical History History of difficult intubation ACDF C5-C7 with iliac crest bone graft: 03/10/14: Grade view 1, Glidescope #3, ETT 7.5 at [facility] Anxiety Degenerative disc disease cervical Depression Essential tremor occasional hands + head- on propranolol Fibromyalgia GERD (gastroesophageal reflux disease) occasional Hiatal hernia Hyperlipidemia Migraine hx Osteoarthritis Temporomandibular joint disorder left side clicking; no locking Surgical History H/O hand surgery X [id number] FOR FRACTURE/NON BONE HEALING History of arthroscopy LEFT KNEE MENISCUS REPAIR History of bilateral tubal ligation History of colonoscopy History of elbow surgery TENDONS-LEFT History of esophagogastroduodenoscopy (EGD) History of herniorrhaphy X 2 History of repair of rotator cuff RIGHT History of tooth extraction WISDOM TEETH S/P cervical spinal fusion Family History Mother Family history of diabetes mellitus Social History Preferred Language: Italian Communication Ability: Effective Yard Supervisor Required: No Beliefs That Will Affect Care: None Current Living Situation: Spouse Other Information That Helps Us Care for You: No Feels Safe at Home: Yes Safety Concerns: Feels Safe At This Time Smoking Status: Current every day smoker Tobacco Type: cigarettes ; Cigarettes Per Day: 15 CIGARETTES/DAY X 20 YRS ; Do You Dip or Chew Tobacco: No ; Second Hand Exposure: No ; Hx Alcohol Use: No Hx Substance Use: No Review of Systems All systems reviewed & are unremarkable except as noted in HPI & below Physical Exam Constitutional: WD/WN, vitals as above no acute distress and not ill appearing Eyes: PERRL, conjunctivae normal, anicteric sclerae EOM intact bilaterally ENMT: external ear and nose normal, oropharynx normal Ears: no hearing impairment Neck: trachea midline, no thyromegaly Respiratory: normal respiratory effort; no respiratory distress and does not use accessory muscles Cardiovascular: Rate/Rhythm: regular rate and regular rhythm Gastrointestinal (Abdomen): normal bowel sounds, soft, nontender, no hepatosplenomegaly Skin: no rashes, warm and dry Psychiatric: Orientation: alert, oriented x 3 and cooperative Results & Data Vital Signs (Past 12 Hours) Vital Signs Temp Pulse Resp BP Pulse Ox 04/04/19 13:18 36.4 C L 86 18 97/70 L 97
[2019-04-04] MEDS ORDERED: PROMETHAZINE HCL 12.5 MG in SODIUM CHLORIDE 0.9% 50 ML IV PRN (14:25)
[2019-04-04] MEDS ORDERED: FLUMAZENIL 0.1 MG/1 ML 10 ML VIAL IV PRN (14:25)
[2019-04-04] MEDS ORDERED: ONDANSETRON INJ 2 MG/ML 2 ML VIAL IV PRN ×2 (14:25→18:45)
[2019-04-04] MEDS ORDERED: LABETALOL HCL IV 5 MG/ML 20ML IV PRN (14:25)
[2019-04-04] MEDS ORDERED: ePHEDrine sulfate 50 MG/ML AMP IV PRN (14:25)
[2019-04-04] MEDS ORDERED: NALOXONE HCL 0.4 MG/1 ML VIAL/CARP IV PRN (14:25)
[2019-04-04] MEDS ORDERED: ATROPINE SULFATE 0.1 MG/ML 10ML SYR IV PRN (14:25)
[2019-04-04] MEDS ORDERED: EPINEPHrine INJ 1 MG/ML AMP ONE (14:29)
[2019-04-04] MEDS ORDERED: BUPIVACAINE 0.5 % 5 MG/1 ML MPF 30ML VIAL ONE (14:29)
[2019-04-04] MEDS ORDERED: HYDROmorphone INJ 2 MG/ML SYR/VIAL ONE (15:14)
[2019-04-04] MEDS ORDERED: ACETAMINOPHEN 1000 MG/100 ML IV IV ONE (15:28)
[2019-04-04] MEDS ORDERED: ROCURONIUM BROMIDE 10 MG/ML 5 ML VIAL ONE (15:47)
--- NOTE | 2019-04-04 16:47 | Operative Report ---
PG Post Operative Report Pre & Post Diagnosis Operation Date: 04/04/19 14:25 Pre-Op Diagnosis: Hiatal Hernia, Gastroesophageal reflux disorder Post-Op Diagnosis: Hiatal Hernia, Gastroesophageal reflux disorder I identified the patient and participated in the time-out.: Yes Procedure Operation Date: 04/04/19 14:25 Actual Procedures p Laparoscopic Hiatal Hernia Repair with 360 degree Fundoplication,(Not Applicable) - Tray Marion DO Surgeon Tray Marion DO Lcac Operator chapin Rosado Estimated Blood Loss 5 Findings Consistent with Post-Op Diagnosis Specimens none Description of Procedure After informed consent was obtained the patient was taken to the operating room and placed in supine position. After successful intubation the abdomen was sterilely prepped and draped in usual fashion. I made an incision with 11 blade scalpel just above the umbilicus. This was carried down through soft tissue using cautery. Anterior rectus fascia was opened using cautery and two #0 Vicryl stay sutures were placed. Peritoneum was elevated using hemostats and incised under direct vision using Metzenbaum scissor. A 12 mm Fritz trocar was placed and the abdomen was insufflated to 20 mmHg. Laparoscope was inserted and the abdomen examined in 360 degrees. No gross abnormalities were seen. A subxiphoid 12 mm port a right upper quadrant 5 mm port a right flank 5 mm port in the left flank 5 mm port were all placed under direct vision. A liver retractor attached to the table was used throughout the case to help with exposure. Once we elevated the left lobe of the liver there was a moderate sized hiatal hernia with some gastric incarceration. We were able to easily manually reduce the stomach. I began by using the harmonic scalpel along the right crew the diaphragm and started taking down hernia sac. I extended this up anterior over the defect and down onto the left crew the diaphragm until I had the entire hernia sac excised. Once I had everything reduced and the hernia sac excised I then divided the top for short gastric vessels again using the harmonic scalpel. Once this was done we had anesthesia advanced a 50 Bur[place]ian bougie into the stomach. This was done without difficulty. After this I made a small window in the retrogastric space just below the GE junction. I was able to expose the left and right crew the diaphragm and primarily closed part of the defect in the retrogastric space using 0 Surgidac with the Endo Stitch device. Once I had part of the hernia repaired posteriorly we then were able to easily pull the gastric fundus through that window. It sat nice and free without any tension. It was quite easy to do a shoeshine test. I did do a posterior gastropexy by pexing the fundus of the stomach to the right crew the diaphragm again using 0 Surgidac. Next I closed the remainder of the hernia defect anteriorly using 0 Surgidac in simple interrupted fashion. The hernia was not too large and therefore was not under that much tension when I did this. I then completed the 360 degree wrap by suturing body of the stomach lateral to the esophagus to the fundus on the medial side of the esophagus. This created about a 3 cm 360 degree wrap. Again this did not appear to be under much tension. There was no evidence of ischemia. We were able to easily remove the bougie. There was adequate hemostasis. We thoroughly irrigated the upper abdomen. Final look around the abdomen showed no other gross abnormalities. All the trochars were removed and the abdomen desufflated. Fascia of the camera port was closed using 0 Vicryl in a [id number] fashion. All the wounds were irrigated and closed using 4-0 Monocryl. Marcaine was injected around them for postoperative analgesia and skin glue used as a dressing. My physician assistant womens volleyball coach was present to the entire case. He helped prep the patient. He helped run the camera and helped with retraction throughout my dissection. Also helped with wound closure and dressing placement. I attest to the content of the Intraoperative Record and any orders documented therein. Any exceptions are noted below.
[2019-04-04] MEDS: HYDROmorphone INJ 1 MG/ML SYRINGE IV PRN ×7 (17:04→17:44)
--- NOTE | 2019-04-04 18:11 | Anesthesiology Progress Note ---
Date of Service April 04, 2019 Anesthesia Post Procedure Vital Signs Vital Signs: Temp Pulse Pulse Resp BP BP Pulse Ox 04/04/19 17:45 36.9 C 80 11 L 129/87 96 04/04/19 17:35 73 15 142/76 H 95 04/04/19 17:25 79 14 140/77 93 04/04/19 17:15 81 16 136/71 95 04/04/19 17:05 84 16 145/82 H 93 04/04/19 16:55 88 16 160/84 H 94 04/04/19 16:48 36.9 C 98 H 16 163/92 H 93 04/04/19 13:18 36.4 C L 86 18 97/70 L 97 Pain Intensity Back: Pain Intensity: 5 Transfer of Care Handoff Completed per policy Notes Mental Status: alert / awake / arousable Patient Amnestic to Procedure: Yes Nausea / Vomiting: adequately controlled Pain: adequately controlled Airway Patency, RR, SpO2: stable & adequate BP & HR: stable & adequate Hydration State: stable & adequate Anesthetic Complications: no major complications apparent
[2019-04-04] MEDS: LACTATED RINGER'S 1,000 ML IV SCH (18:30)
[2019-04-04] MEDS ORDERED: LORazepam 0.5 MG TAB PO PRN (18:45)
[2019-04-04] MEDS ORDERED: HYDROCODONE/ACETAMOPHEN 5/325MG TAB PO PRN (18:45)
[2019-04-04] MEDS ORDERED: MoRPHine SULFATE 2 MG/ML CARP IV PRN (18:45)
[2019-04-04] MEDS: ACETAMINOPHEN 1,000 MG/100 ML VIAL IV PRN (19:30)
[2019-04-04] MEDS ORDERED: AMITRIPTYLINE HCL 100 MG TAB PO SCH (21:00)
[2019-04-04] MEDS ORDERED: GABAPENTIN 300 MG CAP PO SCH (21:00)
[2019-04-04] MEDS: MoRPHine SULFATE 4 MG/ML 1 ML CARP\\VIAL IV PRN (21:50)
[2019-04-04] MEDS: PROPRANOLOL HCL 20 MG TAB PO SCH (21:53)
[2019-04-04] MEDS: DULOXETINE HCL 60 MG CAP PO SCH (21:54)
[2019-04-04] MEDS: PANTOprazole 40 MG TAB PO SCH (21:54)
[2019-04-04] MEDS: CYCLOBENZAPRINE HCL 10 MG TAB PO SCH (21:57)
[2019-04-05] MEDS: MoRPHine SULFATE 4 MG/ML 1 ML CARP\\VIAL IV PRN ×2 (00:02→05:16)
[2019-04-05] MEDS: LACTATED RINGER'S 1,000 ML IV SCH (05:12)
[2019-04-05] MEDS: HYDROCODONE/ACETAMOPHEN 5/325MG TAB PO PRN ×2 (05:52→10:43)
[2019-04-05 06:13] LABS: Hemoglobin 12.3 g/dL (12.0-16.0); Immature Granulocytes # (auto) 0.04 K/uL (0.00-0.02); Immature Granulocytes % (auto) 0.3 %; Lymphocytes # (auto) 2.23 K/uL (1.2-3.4); Lymphocytes % (auto) 17.2 %; Mean Corpuscular Hemoglobin 33.4 pg (25-34); Mean Corpuscular Hgb Conc 34.2 g/dL (32-36); Mean Corpuscular Volume 97.8 fL (80-100); Monocytes # (auto) 0.78 K/uL (0.11-0.59); Neutrophils # (auto) 9.91 K/uL (1.4-6.5); Neutrophils % (auto) 76.5 %; Platelet Count 264 K/uL (130-400); RDW Coefficient of Variation 13.5 % (11.5-14.5); RDW Standard Deviation 48.2 fL (36.4-46.3); Red Blood Count 3.68 M/uL (4.2-5.4); White Blood Count 12.96 K/uL (4.8-10.8)
[2019-04-05 06:50] LABS: BUN Creatinine Ratio 10.6 (10-20); Calcium 8.8 mg/dl (8.5-10.1); Creatinine Clr Calc Pharmacy 78.1 ml/min; Est GFR (African American) 73.1; Est GFR (Non-African American) 63.1; Potassium 4.2 mmol/L (3.5-5.1)
--- NOTE | 2019-04-05 07:58 | Surgery Progress Note ---
Date of Service April 05, 2019 Assessment & Plan (1) Hiatal hernia with GERD: POD#1 hiatal hernia repair with fundoplication Patient feels well this AM, tolerating clears with some expected epigastric soreness will advance diet to full liquids continue prn pain meds and zofran if needed will anticipate discharge to home later today as above. doing well. eduard diet. no n/v ok for d/c instructions given. Subjective Patient overall feeling well this morning. Has some epigastric soreness, but is being managed with PRN pain medication. She has tolerated clear liquids without nausea/vomiting. She is eager to go home today. Physical Exam Physical Exam: awake/alert Respiratory: normal respiratory effort Gastrointestinal (Abdomen): Inspection/Auscultation: + abdominal surgical incision (c/d/i with dermabond overtop); abdomen not distended Percussion/Palpation: abdomen soft; abdomen nontender Results & Data Vital Signs (Past 12 Hours) Vital Signs Temp Pulse Pulse Pulse Resp BP Pulse Ox 04/05/19 07:30 36.7 C 71 11 L 112/58 L 92 04/05/19 03:08 36.6 C 73 16 113/73 90 04/04/19 23:26 36.5 C 73 16 121/76 91 04/04/19 21:39 36.7 C 80 16 125/70 90 04/04/19 20:52 36.6 C 83 16 123/73 92 PG Care Time/CCT Total # of Minutes Spent Total Time Spent with Patient: Total time spent is greater than 50% in coordination of care (as documented) at patient's floor/unit and/or counseling patient:
[2019-04-05] MEDS: ACETAMINOPHEN 1,000 MG/100 ML VIAL IV PRN (07:59)
[2019-04-05] MEDS: CYCLOBENZAPRINE HCL 10 MG TAB PO SCH (08:05)
[2019-04-05] MEDS: PROPRANOLOL HCL 20 MG TAB PO SCH (08:06)
[2019-04-05] MEDS: DULOXETINE HCL 60 MG CAP PO SCH (08:06)
[2019-04-05] MEDS: PANTOprazole 40 MG TAB PO SCH (08:06)
[2019-04-05 11:32] VITALS: TEMP 98.8; O2SAT 98
[2019-04-05 12:53] VITALS: BP 97/70; PULSE 73
--- NOTE | 2019-04-05 13:52 | Discharge Summary ---
Date of Service April 05, 2019 Admission HPI Per Admitting Provider Patient with a known hiatal hernia and acid reflux who has rather severe symptoms on a daily basis despite conservative management. She had a thorough work-up including motility test which was negative for any esophageal dysmotility disorder. She has a known hiatal hernia and active reflux. Principal Diagnosis Hiatal hernia GERD Discharge Exam Respiratory normal respiratory effort Gastrointestinal (Abdomen) Inspection/Auscultation: + abdominal surgical incision (c/d/i with dermabond overtop); abdomen not distended Percussion/Palpation: abdomen soft; abdomen nontender Discharge Data Allergies Allergy/AdvReac Type Severity Reaction Status Date / Time pregabalin Allergy Unknown hives/rash, Verified 04/04/19 13:26 pruritus tramadol AdvReac Mild GI upset Verified 04/04/19 13:26 cyclobenzaprine AdvReac Gastrointestinal Verified 04/04/19 14:29 [From Flexeril] Upset Procedures Performed Operation Date: 04/04/19 14:25 Actual Procedures p Laparoscopic Hiatal Hernia Repair with Fundoplication,(Not Applicable) - Tray Marion, Hospital Course (1) Hiatal hernia with GERD: This is a 53y F who presented to the [facility] on 04/04/19 for elective repair of a hiatal hernia with Dr. Marion. The patient tolerated the procedure well, see operative report for full details. The patient recovered in the PACU and was transferred to the surgical nursing floor in stable condition with a clear liquid diet, IVF, prn pain medication and anti-emetics. On POD#1 her diet was advanced to full liquids of which she tolerated. Pain was well managed, patient voiding spontaneously, and incisions clean/dry/intact. She was deemed stable for discharge to home with instructions to continue on a liquid diet and to be seen in clinic for a post op check within 1 week. Total Time Total Time Spent Total Time Spent (In Minutes): 15 Discharge Plan Discharge Items Patient Disposition: Home - Self-Care Reason For Visit: Hiatal Hernia, GERD Discharge Diagnosis: hiatal hernia repair Activity: Per Instructions section Lifting: No more than 10 pounds Bathing Comment: you may shower Exercise/Sports: Wait until after follow-up appointment Driving/Machine Use: do not resume driving while taking narcotics for pain Non-emergency contact: Surgeon Call non-emergency contact if: you have any medication questions, your symptoms worsen, your pain is not controlled, your pain is worsening, your pain is unusual for you, you have a fever, your temperature is above 101.5, your wound has increased redness, your wound has increased drainage and your wound pain has increased Follow-up/Referrals: Tray Marion DO [Surgeon] - (Please call to schedule follow up in clinic within 1-2 weeks. You may call the office sooner if you have any questions/concerns.) Jessica Morrow PA-C [Primary Care Provider] - Diet: Full liquid Diet Comment: as previously discussed with Dr. Marion, please continue a liquid diet Addtl Attending Provider Instructions: Pending Studies at Discharge: No Stand-Alone Forms: [facility], Opioid Pain Management Medications and DC Order Prescriptions: New oxycodone-acetaminophen [Percocet] 5-325 mg tablet 1 - 2 tab PO Q4H PRN (Reason: pain, initial therapy, max 8 daily) Qty: 15 RF: 0 ondansetron HCl [Zofran] 4 mg tablet 4 mg PO Q6H PRN (Reason: nausea and vomiting) Qty: 7 RF: 0 Continued Amitiza 24 mcg capsule 24 mcg PO BID RF: 0 amitriptyline 100 mg tablet 100 mg PO HS RF: 0 atorvastatin [Lipitor] 10 mg tablet 10 mg PO HS RF: 0 sumatriptan succinate [Imitrex] 100 mg tablet 100 mg PO ONCE PRN (Reason: Migraine Headache) RF: 0 lorazepam 0.5 mg tablet 0.5 mg PO BID RF: 0 pantoprazole [Protonix] 40 mg tablet,delayed release (DR/EC) 40 mg PO BID RF: 0 propranolol 40 mg tablet 40 mg PO BID RF: 0 ranitidine HCl 300 mg capsule 300 mg PO HS RF: 0 cyclobenzaprine 10 mg Tablet 10 mg PO TID RF: 0 oxycodone-acetaminophen [Percocet] 10-325 mg Tablet 1 tab PO BID PRN (Reason: Pain) RF: 0 buspirone 10 mg Tablet 10 mg PO BID RF: 0 gabapentin 300 mg Capsule 300 mg PO HS RF: 0 duloxetine [Cymbalta] 60 mg Capsule,Delayed Release(Dr/Ec) 60 mg PO BID RF: 0 Discharge Orders: Discharge Order (Routine); Ordered 11/08/19 Ordered By: Amanda Jewell/Other Patient Handouts: DVT Prevent Admission Data Admit Date/Time: 04/04/19 16:48 Attending Provider: Tray Marion Admit Provider: Tray Marion Primary Care Provider: Jessica Morrow Other Interventions: Discharge Summary Assessment (RN) Last Done: 04/05/19 12:52 DC Date/Time DO NOT enter until pt leaves facility: 04/05/19 13:53
== END 2019-04-05 13:53 | disposition home or self-care (01) ==
LOC: 3W 12:54 → ASU 12:54

== ENCOUNTER 2019-11-07 09:31 | Inpatient (IN) ==
--- NOTE | 2019-11-07 10:12 | Emergency Department Note ---
ED Visit Note This patient was seen in concert with Dr. Langston and we discussed and agreed upon the history, physical, assessment and plan. . Resident Activity Tracking Resident Involvement: Resident Care Provided Care Provided: Adult ED
--- NOTE | 2019-11-07 10:31 | XRay Report ---
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 There is an acute transcervical fract ure of the left femur which demonstrates mild impaction with 1.5 cm superior displacement and slight apex superior lateral angulation. No dislocation. Tubo-ovarian occlusion devices are noted. Mild soft tissue swelling surrounds the left hip. IMPRESSION: Acute mildly impacted and displaced transcervical fracture of the left femur. ACT 112: Negative or not required by law. The above report was generated using voice recognition software. It may contain grammatical, syntax o r spelling errors. Electronically signed by: Ceasar Cerna M.D. 11/07/2019 10:30 AM
--- NOTE | 2019-11-07 10:33 | XRay Report ---
XR elbow LT min 3V routine HISTORY: 54 years-old Female left elbow pain fall acute left elbow pain status post fall COMPARISON: Left forearm radiographs 06/01/2017 TECHNIQUE: 3 views of the left elbow FINDINGS: There is an acute and comminuted displaced fracture involving the olecranon with intra-articular exte nsion. 1.6 cm proximal displacement. Soft tissue thickening within the region of the distal triceps w ith associated enthesophyte. Proximal radius appears intact. Moderate sized elbow joint effusion. IMPRESSION: 1. Acute comminuted and displaced intra-articular fracture of the olecranon. 2. Soft tissue swelling with joint effusion. ACT 112: Negative or not required by law. The above report was generated using voice recognition software. It may contain grammatical, syntax o r spelling errors. Electronically signed by: Ceasar Cerna M.D. 11/07/2019 10:31 AM
--- NOTE | 2019-11-07 10:34 | XRay Report ---
XR knee LT 1 or 2V routine HISTORY: 54 years-old Female left knee pain fall acute left-sided knee pain status post fall COMPARISON: None. TECHNIQUE: 2 views of the left knee. FINDINGS: There is mild medial and patellofemoral compartment osteoarthritis. No acute fracture, dislocation or opaque foreign body. Mild medial soft tissue swelling. No large joint effusion. IMPRESSION: No acute fracture or dislocation. ACT 112: Negative or not required by law. The above report was generated using voice recognition software. It may contain grammatical, syntax o r spelling errors. Electronically signed by: Ceasar Cerna M.D. 11/07/2019 10:32 AM
--- NOTE | 2019-11-07 10:34 | XRay Report ---
XR chest 1V portable CLINICAL HISTORY: Trauma COMPARISON STUDY: 09/28/2017 FINDINGS: The cardiac and mediastinal contours are normal. There is no evidence of focal pulmonary co nsolidation. There is no evidence of failure. No pleural effusions are visualized.[Postsurgical argueta es are present within the cervical spine. No pneumothorax is visualized on the supine study. There is tapering distal right clavicle, finding unchanged from the prior study and likely related to prior t rauma or surgery. IMPRESSION: No active disease in the chest. ACT 112: Negative or not required by law. Electronically signed by: Benton Singh M.D. 11/07/2019 10:33 AM
[2019-11-07 10:38] LABS: Basophils # (auto) 0.01 K/uL (0-0.2); Basophils % (auto) 0.1 %; Eosinophils % (auto) 2.8 %; Hematocrit (blood only) 38.1 % (37-47); Hemoglobin 12.3 g/dL (12.0-16.0); Immature Granulocytes # (auto) 0.05 K/uL (0.00-0.02); Immature Granulocytes % (auto) 0.3 %; Lymphocytes # (auto) 2.28 K/uL (1.2-3.4); Lymphocytes % (auto) 15.7 %; Mean Corpuscular Hemoglobin 32.1 pg (25-34); Mean Corpuscular Hgb Conc 32.3 g/dL (32-36); Mean Corpuscular Volume 99.5 fL (80-100); Mean Platelet Volume 9.4 fL (7.4-10.4); Monocytes # (auto) 0.61 K/uL (0.11-0.59); Monocytes % (auto) 4.2 %; Neutrophils # (auto) 11.19 K/uL (1.4-6.5); Neutrophils % (auto) 76.9 %; Platelet Count 224 K/uL (130-400); RDW Coefficient of Variation 13.5 % (11.5-14.5); Red Blood Count 3.83 M/uL (4.2-5.4); White Blood Count 14.54 K/uL (4.8-10.8)
[2019-11-07 10:48] LABS: Prothrombin Time 10.4 Seconds (9.0-12.0)
[2019-11-07 10:55] LABS: Albumin Level 3.4 gm/dl (3.4-5.0); BUN Creatinine Ratio 12.7 (10-20); Calcium 8.2 mg/dl (8.5-10.1); Creatinine Clr Calc Pharmacy 70.1 ml/min; Est GFR (African American) 66.9; Est GFR (Non-African American) 57.7
[2019-11-07] MEDS ORDERED: ACETAMINOPHEN 1,000 MG/100 ML VIAL IV STA (10:55)
[2019-11-07] MEDS ORDERED: fentaNYL citrate 100 MCG/2 ML VIAL IV STA (10:55)
[2019-11-07 10:57] LABS: Albumin Globulin Ratio 1.1 (0.9-2); Bilirubin,Total 0.3 mg/dl (0.2-1); Globulin 3.2 gm/dl (2.5-4.0); Total Protein 6.6 gm/dl (6.4-8.2)
--- NOTE | 2019-11-07 11:11 | Emergency Department Note ---
Impression & Plan Fall, Closed fracture of left hip, Fracture of left olecranon process, Dizziness ED Provider Note Provider: Fortino Langston MD DATE OF SERVICE: 11/07/2019 CHIEF COMPLAINT: Fall, left elbow, left hip pain HISTORY OF PRESENT ILLNESS: Patient is a 54-year-old female presenting via ambulance from home today after a fall. Patient states that she was cleaning up some things on the floor went to stand up and got standing and then felt a bit dizzy and fell to the floor. Patient states he had episodes of transient dizziness very intermittently over the past several years. Denies current dizzi ness at this time. Denies LOC. Denies head pain. Fell onto her left side and complains significant left elbow pain and left hip pain. Movement radiation down the left thigh. States some numbness in her left hand particularly left pinky finger. Receive some morphine for EMS which has helped mildly. Still with pain particularly with movement of either extremity. Intact sensation of the left lower extremity. Denies injury to the right extremities. Denies chest pain or shortness of breath. Denies abdominal pain. Denies head or neck pain at this time. Patient relays a history of prior left distal radial injury and surgery by the [facility] orthopedic group. REVIEW OF SYSTEMS: A total of 10 review of systems was obtained and negative except as stated above in the HPI. PAST MEDICAL HISTORY: As noted above MEDICATIONS: Reviewed medication list no significant anticoagulation or a ntiplatelets noted SOCIAL HISTORY: and lives at home PHYSICAL EXAM: GENERAL: alert and oriented in no acute distress on stretcher does appear a bit fatigued Head: normocephalic and atraumatic EYES: No injection, discharge or icterus. NECK: Trachea midline. Supple. No significant midline tenderness ENT: Mucous membranes pink and moist. LUNGS: Airway patent. No retractions. Breath sounds clear anteriorly HEART: Regular rate and rhythm. No chest wall tenderness ABDOMEN: Soft and non-tender, without guarding or rebound. SKIN: Acyanotic, warm, dry, without rashes EXTREMITIES: Swelling contusion and tenderness of the left olecranon process. 2+ left radial pulse. Diminished sensation on the left fingers and no gross sensation of the left pinky. Intact sensation of the left lower extremity with pain around the left hip. No left knee tenderness. There is a healed distal left forearm surgical wound without evidence of erythema or tenderness. NEUROLOGICAL: No focal deficits. No aphasia. No facial droop. Patient speech is occasionally slightly slurred (appears consistent with narcotics previously received) EK bpm normal sinus rhythm no PVCs. No acute ST segment elevation or depression. Normal axis. CONTINUOUS CARDIAC MONITORING: was ordered and showed a heart rate of 75 bpm in NSR Patient's hypertension was referred to the hospitalist [facility] 15. HOSPITAL COURSE: 941 seen initially by the resident physician at this time 1045 Patient was first seen and H&P performed. Patient was updated on imaging and laboratory findings thus far. [address] Love of orthopedics. Patient was made n.p.o. Plan for operative intervention possibly as early as this afternoon. [address] Harris of [facility] hospital[place] team for admission Patient's laboratory studies and imaging reviewed. Differential includes Fracture, dislocation, contusion, intra-abdominal, pneumothorax, intrathoracic, intracranial, neurologic, compartment syndrome, rh abdomyolysis, as well as other pathologies. IMPRESSION/MEDICAL DECISION MAKING: Patient resents after fall today. No evidence of head trauma. Patient does have some slight slurred speech at times likely related to narcotics that she is received. There is no focality to her exam. Not any plans anticoagulants. Given left hip pain with a shortened rotated left lower extremity as well as left elbow pain. X-ray imaging was obtained showing evidence of a left turn cervical fracture of the hip as well as a left olecranon displaced fracture. Both likely require operative repair and discussed with orthopedics will evaluate for this. Basic labs were obtained and preoperative EKG without acute findings. Chest x-ray is unremarkable. No evidence of left knee injury. Neurovascular intact in the left lower extremity. Patient does endorse some numbness of her left hand particularly loss of sensation in her left pinky finger. Does have vascular flow based on radial pulse and capillary refill here. Orthopedics aware of this. Deferred splinting to the orthopedic team given likely plan for OR in the short course. Patient does relay history of episodes of transient dizziness like this. I doubt acute intracranial process at this time. No evidence of cardiac arrhythmia or significant electrolyte abnormality on evaluation in the ER. Patient to be medically admitted and can consider possible further work-up for her transient episodes of dizziness have been ongoing for multiple years. Given some additional Tylenol and fentanyl here for pain control. DIAGNOSIS: Left hip fracture, left olecranon fracture, fall, dizziness DISPOSITION: Hospitalist will evaluate Patient was agreeable with this plan. Past Med/Surg History Medical History Anxiety Degenerative disc disease cervical Depression Essential tremor occasional hands + head- on propranolol Fibromyalgia GERD (gastroesophageal reflux disease) occasional Hiatal hernia History of difficult intubation ACDF C5-C7 with iliac crest bone graft: 03/10/14: Grade view 1, Glidescope #3, ETT 7.5 at [facility] Hyperlipidemia Migraine hx Osteoarthritis Temporomandibular joint disorder left side clicking; no locking Surgical History H/O hand surgery X [id number] FOR FRACTURE/NON BONE HEALING History of arthroscopy LEFT KNEE MENISCUS REPAIR History of bilateral tubal ligation History of colonoscopy History of elbow surgery TENDONS-LEFT History of esophagogastroduodenoscopy (EGD) History of herniorrhaphy X 2 History of repair of hiatal hernia Laparoscopic Hiatal Hernia Repair with 360 degree Fundoplication,- Tray Marion DO 04/04/19 History of repair of rotator cuff RIGHT History of tooth extraction WISDOM TEETH S/P cervical spinal fusion Family History Mother Family history of diabetes mellitus Social History Preferred Language: Arabic Communication Ability: Effective Loan Officer Assistant Required: No Beliefs That Will Affect Care: None Current Living Situation: Spouse Other Information That Helps Us Care for You: No Feels Safe at Home: Yes Safety Concerns: Feels Safe At This Time Smoking Status: Current every day smoker Tobacco Type: cigarettes ; Cigarettes Per Day: 10 ; Second Hand Exposure: No ; Hx Alcohol Use: No Hx Substance Use: No Allergies Allergies Allergy/AdvReac Type Severity Reaction Status Date / Time pregabalin Allergy Unknown hives/rash, Verified 11/07/19 10:41 pruritus tramadol AdvReac Mild GI upset Verified 11/07/19 10:41 cyclobenzaprine AdvReac Gastrointestinal Verified 11/07/19 10:41 [From Flexeril] Upset Home Meds Home Medications Medication Instructions Recorded Confirmed amitriptyline 100 mg tablet 100 mg PO HS 12/31/18 11/07/19 lorazepam 0.5 mg tablet 0.5 mg PO BID 12/31/18 11/07/19 propranolol 40 mg tablet 40 mg PO BID 12/31/18 11/07/19 duloxetine [Cymbalta] 60 mg PO BID 03/05/19 11/07/19 gabapentin 300 mg PO HS 03/05/19 11/07/19 oxycodone-acetaminophen [Percocet] 1 tab PO BID PRN 03/05/19 11/07/19 aripiprazole 5 mg tablet 5 mg PO DAILY 04/23/19 11/07/19 atorvastatin 80 mg PO DAILY 11/07/19 11/07/19 cimetidine 400 mg PO HS 11/07/19 11/07/19 cyclobenzaprine 10 mg PO TID 11/07/19 11/07/19 linaclotide [Linzess] 290 mcg PO DAILY 11/07/19 11/07/19 Previous Rx's Medication Instructions Recorded ondansetron HCl [Zofran] 4 mg PO Q6H PRN #7 tab 04/04/19 promethazine 6.25 mg-codeine 10 5 ml PO Q6H PRN #240 ml 07/15/19 mg/5 mL syrup pantoprazole 40 mg tablet,delayed 40 mg PO DAILY #30 tab 08/26/19 release Results & Data (ED) Vital Signs Vital Signs - 24 hr 11/07/19 09:37 11/07/19 11:21 11/07/19 11:26 Temperature 36.5 C Temperature Source Oral Pulse Rate 92 H 79 Pulse Rate [Apical] 73 Pulse Rate from SpO2 Sensor 78 Pulse Rhythm Regular Pulse Rhythm [Apical] Regular Respiratory Rate 17 18 17 Respiratory Effort / Characteristics Non-Labored Spontaneous Non-Labored Spontaneous Respiratory Depth Normal Normal Respiratory Pattern Regular Regular Blood Pressure 144/75 H 124/78 Blood Pressure [Right Arm] 124/78 Blood Pressure Mean 98 91 Blood Pressure Mean [Right Arm] 93 Pulse Oximetry 99 93 92 Oxygen Delivery Method Room Air Room Air Oxygen Flow Rate Sepsis Recent Fever Within 48 Hours No Sepsis New/Unexplained Change in Mental Status No Sepsis Action Taken by Nursing No Action Required 11/07/19 12:00 11/07/19 12:01 11/07/19 12:30 Temperature Temperature Source Pulse Rate 74 Pulse Rate [Apical] 72 Pulse Rate from SpO2 Sensor Pulse Rhythm Pulse Rhythm [Apical] Regular Respiratory Rate 16 16 Respiratory Effort / Characteristics Non-Labored Spontaneous Respiratory Depth Normal Respiratory Pattern Blood Pressure 106/67 Blood Pressure [Right Arm] 111/66 Blood Pressure Mean 85 Blood Pressure Mean [Right Arm] 81 Pulse Oximetry 87 L 95 93 Oxygen Delivery Method Room Air Nasal Cannula Nasal Cannula Oxygen Flow Rate 2 2 Sepsis Recent Fever Within 48 Hours Sepsis New/Unexplained Change in Mental Status Sepsis Action Taken by Nursing 11/07/19 13:00 11/07/19 13:30 11/07/19 14:00 Temperature Temperature Source Pulse Rate 74 74 75 Pulse Rate [Apical] Pulse Rate from SpO2 Sensor 74 75 Pulse Rhythm Pulse Rhythm [Apical] Respiratory Rate 16 17 18 Respiratory Effort / Characteristics Respiratory Depth Respiratory Pattern Blood Pressure 109/69 114/69 123/75 Blood Pressure [Right Arm] Blood Pressure Mean 82 90 93 Blood Pressure Mean [Right Arm] Pulse Oximetry 93 96 95 Oxygen Delivery Method Oxygen Flow Rate 2 2 2 Sepsis Recent Fever Within 48 Hours Sepsis New/Unexplained Change in Mental Status Sepsis Action Taken by Nursing 11/07/19 14:08 Temperature Temperature Source Pulse Rate Pulse Rate [Apical] Pulse Rate from SpO2 Sensor Pulse Rhythm Pulse Rhythm [Apical] Respiratory Rate Respiratory Effort / Characteristics Respiratory Depth Respiratory Pattern Blood Pressure Blood Pressure [Right Arm] Blood Pressure Mean Blood Pressure Mean [Right Arm] Pulse Oximetry Oxygen Delivery Method Nasal Cannula Oxygen Flow Rate 2 Sepsis Recent Fever Within 48 Hours Sepsis New/Unexplained Change in Mental Status Sepsis Action Taken by Nursing Laboratory Data Result diagrams: 11/07/19 10:24 11/07/19 10:24 Lab Results 11/07/19 11/07/19 11/07/19 Range/Units 10:24 10:24 10:24 WBC 14.54 H (4.8-10.8) K/uL RBC 3.83 L (4.2-5.4) M/uL Hgb 12.3 (12.0-16.0) g/dL Hct 38.1 (37-47) % MCV 99.5 (80-100) fL MCH 32.1 (25-34) pg MCHC 32.3 (32-36) g/dL RDW Std Deviation 49.0 H (36.4-46.3) fL RDW Coeff of Tereza 13.5 (11.5-14.5) % Plt Count 224 (130-400) K/uL MPV 9.4 (7.4-10.4) fL Immature Gran % (Auto) 0.3 % Neut % (Auto) 76.9 % Lymph % (Auto) 15.7 % [place] % (Auto) 4.2 % Eos % (Auto) 2.8 % Baso % (Auto) 0.1 % Immature Gran # (Auto) 0.05 H (0.00-0.02) K/uL Neut # (Auto) 11.19 H (1.4-6.5) K/uL Lymph # (Auto) 2.28 (1.2-3.4) K/uL [place] # (Auto) 0.61 H (0.11-0.59) K/uL Eos # (Auto) 0.40 (0-0.5) K/uL Baso # (Auto) 0.01 (0-0.2) K/uL PT 10.4 (9.0-12.0) Seconds INR 1.0 (0.9-1.1) Sodium 141 (136-145) mmol/L Potassium 4.0 (3.5-5.1) mmol/L Chloride 111 H (98-107) mmol/L Carbon Dioxide 27 (21-32) mmol/L Anion Gap 3.0 (3-11) BUN 14 (7-18) mg/dl Creatinine 1.08 (0.6-1.2) mg/dl Est Cr Clr Drug Dosing 70.1 ml/min Est GFR ( Amer) 66.9 Est GFR (Non-Af Amer) 57.7 BUN/Creatinine Ratio 12.7 (10-20) Glucose 112 H (70-99) mg/dl Calcium 8.2 L (8.5-10.1) mg/dl Total Bilirubin 0.3 (0.2-1) mg/dl AST 23 (15-37) U/L ALT 34 (12-78) U/L Alkaline Phosphatase 105 (45-117) U/L Total Protein 6.6 (6.4-8.2) gm/dl Albumin 3.4 (3.4-5.0) gm/dl Globulin 3.2 (2.5-4.0) gm/dl Albumin/Globulin Ratio 1.1 (0.9-2) Urine Color Urine Appearance (Clear) Urine pH (4.5-7.5) Ur Specific [place] (1.000-1.030) Urine Protein (Negative) Urine Glucose (UA) (Negative) Urine Ketones (Negative) Urine Blood (Negative) Urine Nitrite (Negative) Urine Bilirubin (Negative) Urine Urobilinogen (Negative) Ur Leukocyte Esterase (Negative) COVID-19 PCR (Negative) Blood Type Antibody Screen 11/07/19 11/07/19 11/07/19 Range/Units 10:24 12:05 12:24 WBC (4.8-10.8) K/uL RBC (4.2-5.4) M/uL Hgb (12.0-16.0) g/dL Hct (37-47) % MCV (80-100) fL MCH (25-34) pg MCHC (32-36) g/dL RDW Std Deviation (36.4-46.3) fL RDW Coeff of Tereza (11.5-14.5) % Plt Count (130-400) K/uL MPV (7.4-10.4) fL Immature Gran % (Auto) % Neut % (Auto) % Lymph % (Auto) % [place] % (Auto) % Eos % (Auto) % Baso % (Auto) % Immature Gran # (Auto) (0.00-0.02) K/uL Neut # (Auto) (1.4-6.5) K/uL Lymph # (Auto) (1.2-3.4) K/uL [place] # (Auto) (0.11-0.59) K/uL Eos # (Auto) (0-0.5) K/uL Baso # (Auto) (0-0.2) K/uL PT (9.0-12.0) Seconds INR (0.9-1.1) Sodium (136-145) mmol/L Potassium (3.5-5.1) mmol/L Chloride (98-107) mmol/L Carbon Dioxide (21-32) mmol/L Anion Gap (3-11) BUN (7-18) mg/dl Creatinine (0.6-1.2) mg/dl Est Cr Clr Drug Dosing ml/min Est GFR ( Amer) Est GFR (Non-Af Amer) BUN/Creatinine Ratio (10-20) Glucose (70-99) mg/dl Calcium (8.5-10.1) mg/dl Total Bilirubin (0.2-1) mg/dl AST (15-37) U/L ALT (12-78) U/L Alkaline Phosphatase (45-117) U/L Total Protein (6.4-8.2) gm/dl Albumin (3.4-5.0) gm/dl Globulin (2.5-4.0) gm/dl Albumin/Globulin Ratio (0.9-2) Urine Color Yellow Urine Appearance Clear (Clear) Urine pH 7.5 (4.5-7.5) Ur Specific [place] 1.020 (1.000-1.030) Urine Protein Negative (Negative) Urine Glucose (UA) Negative (Negative) Urine Ketones Negative (Negative) Urine Blood Negative (Negative) Urine Nitrite Negative (Negative) Urine Bilirubin Negative (Negative) Urine Urobilinogen Negative (Negative) Ur Leukocyte Esterase Negative (Negative) COVID-19 PCR NEGATIVE (Negative) Blood Type O Negative Antibody Screen NEGATIVE 11/07/19 Range/Units 12:51 WBC (4.8-10.8) K/uL RBC (4.2-5.4) M/uL Hgb (12.0-16.0) g/dL Hct (37-47) % MCV (80-100) fL MCH (25-34) pg MCHC (32-36) g/dL RDW Std Deviation (36.4-46.3) fL RDW Coeff of Tereza (11.5-14.5) % Plt Count (130-400) K/uL MPV (7.4-10.4) fL Immature Gran % (Auto) % Neut % (Auto) % Lymph % (Auto) % [place] % (Auto) % Eos % (Auto) % Baso % (Auto) % Immature Gran # (Auto) (0.00-0.02) K/uL Neut # (Auto) (1.4-6.5) K/uL Lymph # (Auto) (1.2-3.4) K/uL [place] # (Auto) (0.11-0.59) K/uL Eos # (Auto) (0-0.5) K/uL Baso # (Auto) (0-0.2) K/uL PT (9.0-12.0) Seconds INR (0.9-1.1) Sodium (136-145) mmol/L Potassium (3.5-5.1) mmol/L Chloride (98-107) mmol/L Carbon Dioxide (21-32) mmol/L Anion Gap (3-11) BUN (7-18) mg/dl Creatinine (0.6-1.2) mg/dl Est Cr Clr Drug Dosing ml/min Est GFR ( Amer) Est GFR (Non-Af Amer) BUN/Creatinine Ratio (10-20) Glucose (70-99) mg/dl Calcium (8.5-10.1) mg/dl Total Bilirubin (0.2-1) mg/dl AST (15-37) U/L ALT (12-78) U/L Alkaline Phosphatase (45-117) U/L Total Protein (6.4-8.2) gm/dl Albumin (3.4-5.0) gm/dl Globulin (2.5-4.0) gm/dl Albumin/Globulin Ratio (0.9-2) Urine Color Urine Appearance (Clear) Urine pH (4.5-7.5) Ur Specific [place] (1.000-1.030) Urine Protein (Negative) Urine Glucose (UA) (Negative) Urine Ketones (Negative) Urine Blood (Negative) Urine Nitrite (Negative) Urine Bilirubin (Negative) Urine Urobilinogen (Negative) Ur Leukocyte Esterase (Negative) COVID-19 PCR (Negative) Blood Type Cancelled Antibody Screen Cancelled Administered Medications Hydromorphone HCl (Dilaudid) 0.25 - 0.5 mg IV Q2H PRN PRN Reason: Moderate/Severe Pain Stop: 11/21/19 12:20 Last Admin: 11/07/19 13:04 Dose: 0.5 mg Documented by: [id number] Lactated Ringer's (Lr) 1,000 mls @ 125 mls/hr IV .Q8H ALECIA Stop: 12/07/19 11:44 Last Admin: 11/07/19 12:10 Dose: 125 mls/hr Documented by: [id number] Discontinued Medications Dexamethasone (Decadron) 8 mg IV NOW STA Stop: 11/07/19 12:43 Last Admin: 11/07/19 13:17 Dose: 8 mg Documented by: [id number] Fentanyl Citrate (Fentanyl Citrate) 50 mcg IV NOW STA Stop: 11/07/19 10:56 Last Admin: 11/07/19 11:06 Dose: 50 mcg Documented by: [id number] Acetaminophen (Ofirmev) 1,000 mg in 100 mls @ 400 mls/hr IV NOW STA Stop: 11/07/19 11:09 Last Infusion: 11/07/19 11:28 Dose: 0 mls/hr Documented by: [id number] Admin: 11/07/19 11:06 Dose: 400 mls/hr Documented by: [id number] Lactated Ringer's (Lr) 1,000 mls @ 999 mls/hr IV .Q1H1M ONE Stop: 11/07/19 12:40 Last Infusion: 11/07/19 14:09 Dose: 0 mls/hr Documented by: [id number] Admin: 11/07/19 13:02 Dose: 999 mls/hr Documented by: [id number] Tranexamic Acid (Tranexamic Acid / 0.7% Nacl) 1,000 mg in 100 mls @ 600 mls/hr IV NOW STA Stop: 11/07/19 12:50 Last Infusion: 11/07/19 13:28 Dose: 0 mls/hr Documented by: [id number] Admin: 11/07/19 13:17 Dose: 600 mls/hr Documented by: [id number] Discharge Plan Visit Data *Final* Discharge Date/Time: 11/07/19 14:08 Chief Complaint: Fall Stated Complaint: fall/ L elbow&hip pain ED Provider: Fortino Langston ED Midlevel Provider: Steff Jesus Discharge Problem: Fall, Closed fracture of left hip, Fracture of left olecranon process, Dizziness Patient Disposition: Still a Patient Discharge Instructions Interventions: ED Discharge Assessment Last Done: 11/07/19 14:08 Discharge Problem: Fall Qualifiers: Encounter type: initial encounter Qualified Code(s): W19.XXXA - Unspecified fall, initial encounter Closed fracture of left hip Qualifiers: Encounter type: initial encounter Qualified Code(s): S72.002A - Fracture of unspecified part of neck of left femur, initial encounter for closed fracture Fracture of left olecranon process Qualifiers: Encounter type: initial encounter Fracture type: closed Qualified Code(s): S52.022A - Displaced fracture of olecranon process without intraarticular extension of left ulna, initial encounter for closed fracture
--- NOTE | 2019-11-07 11:35 | History & Physical Report ---
Date of Service November 07, 2019 Assessment & Plan (1) Fall: No dizziness as per patient. Suspected due to chronic left knee weakness. Will need assessment with PT after operation (2) Closed left hip fracture: NPO. LR bolus 1L now then 125 ml/hr COVID-19 test ordered pre-operatively Shay catheter placed No prior heart attacks or strokes in the past. Revised cardiac risk score 0; 3.9% 30-day risk of , PA or cardiac arrest She is medically optimized for surgery at this time (3) Closed fracture of left olecranon process: Planned ORIF (4) History of difficult intubation: Noted history of this. Consult anesthesiology ACDF C5-C7 with iliac crest bone graft: 03/10/14: Grade view 1, Glidescope #3, ETT 7.5 at [facility] (5) History of repair of hiatal hernia: Pantoprazole and cimetidine (6) Arthralgia of multiple sites: Patient takes Percocet due to multiple arthlagias at baseline. No longer takes Flexeril (7) Depression with anxiety: Continue usual medications amitriptyline, Cymbalta, aripiprazole Lorazepam she just takes at night (8) Restless leg syndrome: Gabapentin HS (9) Irritable bowel syndrome: Linzess 290mcg daily (10) Essential tremor: Propranolol 40mg BID (given current BP and HR will hold off on giving this pre-operatively despite her missing a dose this morning) (11) DVT prophylaxis: Discussed with Dr Love, will start on Lovenox tomorrow Admission and Anticipated Discharge Date Admission Date: 11/07/2019 History of Present Illness Chief Complaint: Left hip and elbow pain Primary Care Provider: Jessica Morrow PA-C Hamida Oneal is a 54 year old female who presents to the ER after a fall onto her left side. Stood up from seated around 8:30am, left knee buckled. Multiple prior arthroscopies on left knee with possible planned TKR in the future due to repeated knee swelling. Last drink 4am (Gatorade), last ate yesterday. ER note mentions dizziness although she denies this to me. No prodromal symptoms such as chest pain, shortness of breath, headache or dizziness. Since the fall she has had significant pain in her left groin and elbow. She did not take her usual medication this morning. She is on multiple psychiatric medications but reports her symptoms are currently well controlled. No longer taking the Flexeril. Takes Percocets usually twice a day for her multiple arthralgias. Subsequent XRs in the ER showed left hip and olecranon fractures. She was seen at the same time as Dr Love who plans on Left olecranon ORIF and Left THR later this afternoon. Allergies Allergy/AdvReac Type Severity Reaction Status Date / Time pregabalin Allergy Unknown hives/rash, Verified 11/07/19 10:41 pruritus tramadol AdvReac Mild GI upset Verified 11/07/19 10:41 cyclobenzaprine AdvReac Gastrointestinal Verified 11/07/19 10:41 [From Flexeril] Upset Home Medications Home Medications Medication Instructions Recorded Confirmed Type amitriptyline 100 mg tablet 100 mg PO HS 12/31/18 11/07/19 History lorazepam 0.5 mg tablet 0.5 mg PO BID 12/31/18 11/07/19 History propranolol 40 mg tablet 40 mg PO BID 12/31/18 11/07/19 History duloxetine [Cymbalta] 60 mg PO BID 03/05/19 11/07/19 History gabapentin 300 mg PO HS 03/05/19 11/07/19 History oxycodone-acetaminophen [Percocet] 1 tab PO BID PRN 03/05/19 11/07/19 History ondansetron HCl [Zofran] 4 mg PO Q6H PRN #7 tab 04/04/19 11/07/19 Rx aripiprazole 5 mg tablet 5 mg PO DAILY 04/23/19 11/07/19 History promethazine 6.25 mg-codeine 10 5 ml PO Q6H PRN #240 ml 07/15/19 11/07/19 Rx mg/5 mL syrup pantoprazole 40 mg tablet,delayed 40 mg PO DAILY #30 tab 08/26/19 11/07/19 Rx release atorvastatin 80 mg PO DAILY 11/07/19 11/07/19 History cimetidine 400 mg PO HS 11/07/19 11/07/19 History cyclobenzaprine 10 mg PO TID 11/07/19 11/07/19 History linaclotide [Linzess] 290 mcg PO DAILY 11/07/19 11/07/19 History Past Med/Surg History Medical History Anxiety Degenerative disc disease cervical Depression Essential tremor occasional hands + head- on propranolol Fibromyalgia GERD (gastroesophageal reflux disease) occasional Hiatal hernia History of difficult intubation ACDF C5-C7 with iliac crest bone graft: 03/10/14: Grade view 1, Glidescope #3 , ETT 7.5 at [facility] Hyperlipidemia Migraine hx Osteoarthritis Temporomandibular joint disorder left side clicking; no locking Surgical History H/O hand surgery [id number] FOR FRACTURE/NON BONE HEALING History of arthroscopy LEFT KNEE MENISCUS REPAIR History of bilateral tubal ligation History of colonoscopy History of elbow surgery TENDONS-LEFT History of esophagogastroduodenoscopy (EGD) History of herniorrhaphy X 2 History of repair of hiatal hernia Laparoscopic Hiatal Hernia Repair with 360 degree Fundoplication,- Tray Marion DO 04/04/19 History of repair of rotator cuff RIGHT History of tooth extraction WISDOM TEETH S/P cervical spinal fusion Family History Mother Family history of diabetes mellitus Social History Preferred Language: Tamaz[place] Communication Ability: Effective Hairspring Vibrator Required: No Beliefs That Will Affect Care: None Current Living Situation: Spouse Other Information That Helps Us Care for You: No Feels Safe at Home: Yes Safety Concerns: Feels Safe At This Time Smoking Status: Current every day smoker Tobacco Type: cigarettes ; Cigarettes Per Day: 10 ; Second Hand Exposure: No ; Hx Alcohol Use: No Hx Substance Use: No Review of Systems Review of Systems: All systems reviewed & are unremarkable except as noted in HPI & below Physical Exam Constitutional: WD/WN, vitals as above Eyes: + anicteric sclerae; normal pupil size ENMT: external ear and nose normal, oropharynx normal Neck: trachea midline, no thyromegaly Respiratory: normal respiratory effort, lungs clear to auscultation Cardiovascular: RRR, no murmur, no edema Gastrointestinal (Abdomen): normal bowel sounds, soft, nontender, no hepatosplenomegaly Musculoskeletal: Left leg shortened and internally rotated. Closed skin, NV intact distally. Left elbow held at 90 degrees and patient protecting this area with edema. Closed skin. Chronic left wrist pain no worse than usual. Neurologic: awake; + does not move all extremities (left elbow and left hip) and not confused Speech / Cognition: normal speech Motor/Sensory: + sensory deficit (Tingling in left 4th/5th fingers (present prior to fall but now worse)); no tremor Psychiatric: A+Ox3, euthymic affect Results & Data Results & Data ([facility]) Vital Signs (Past 12 Hours) Vital Signs Temp Pulse Pulse Resp BP BP Pulse Ox 11/07/19 11:21 73 18 124/78 93 11/07/19 09:37 36.5 C 92 H 17 144/75 H 99 Diagnostic Findings XR elbow LT min 3V routine IMPRESSION: 1. Acute comminuted and displaced intra-articular fracture of the olecranon. 2. Soft tissue swelling with joint effusion. XR hip LT 2V w pelvis IMPRESSION: Acute mildly impacted and displaced transcervical fracture of the left femur. XR knee LT 1 or 2V routine IMPRESSION: No acute fracture or dislocation. XR chest 1V portable IMPRESSION: No active disease in the chest. ECG Indication: other (Fall) Rate (beats per minute): 77 Rhythm: normal sinus Findings: no acute ischemic change Comparison ECG Date: from (03/04/2019) Change: no significant change Code Status & VTE Plan Code Status Full VTE Prophylaxis Plan VTE Prophylaxis will be ordered: Yes PG Care Time/CCT Total # of Minutes Spent Total Time Spent with Patient: Total time spent is greater than 50% in coordination of care (as documented) at patient's floor/unit and/or counseling patient: Coding Level of Care Code 77832 Initial Inpt Care Lvl 3 Diagnoses Fall W19.XXXA Closed left hip fracture S72.002A Closed fracture of left olecranon process S52.022A History of difficult intubation Z91.89 History of repair of hiatal hernia Z98.890; Z87.19 Arthralgia of multiple sites M25.50 Depression with anxiety F41.8 Restless leg syndrome G25.81 Irritable bowel syndrome K58.9 Essential tremor G25.0 DVT prophylaxis Z29.9
[2019-11-07] MEDS ORDERED: LACTATED RINGER'S 1,000 ML IV ONE (11:40)
[2019-11-07] MEDS: LACTATED RINGER'S 1,000 ML IV SCH ×2 (12:10→20:33)
[2019-11-07] MEDS ORDERED: ONDANSETRON INJ 2 MG/ML 2 ML VIAL IV PRN ×3 (12:19→19:13)
[2019-11-07] MEDS ORDERED: HYDROmorphone INJ 0.5 MG/0.5 ML SYR IV PRN ×2 (12:21→19:13)
--- NOTE | 2019-11-07 12:23 | Orthopedic Consultation ---
Date of Consultation November 07, 2019 Assessment & Plan (1) Closed fracture of left olecranon process: Left total hip arthroplasty and Left olecranon ORIF. Discussed with patient and informed consent signed to proceed with surgical intervention later this afternoon. Pre op orders will be place Admission under medicine service Patient has been NPO since 4:30 AM. (2) Closed left hip fracture: History of Present Illness Reason for Consultation: Left hip and olecranon fractures Requesting Physician: Dr. Jacob England History of Present Illness This 54 yo F is seen in ED after sustaining a fall this AM. Patient states that her left knee buckled causing her to fall and strike her left elbow and hip on the floor. Patient was unable to bear weight on the Left LE after the fall and had severe pain in her left elbow with decreased ROM and increased numbness/tingling in her 4th and 5th digits (always has these symptoms). Patient required EMS for transport to hospital. She denies CP, SOB, fever, chills, sweat or lethargy. She has had multiple surgeries in the past to the Left UE. She is currently on chronic Percocet and is a smoker. Allergies Allergy/AdvReac Type Severity Reaction Status Date / Time pregabalin Allergy Unknown hives/rash, Verified 11/07/19 10:41 pruritus tramadol AdvReac Mild GI upset Verified 11/07/19 10:41 cyclobenzaprine AdvReac Gastrointestinal Verified 11/07/19 10:41 [From Flexeril] Upset Home Medications Home Medications Medication Instructions Recorded Confirmed Type amitriptyline 100 mg tablet 100 mg PO HS 12/31/18 11/07/19 History lorazepam 0.5 mg tablet 0.5 mg PO BID 12/31/18 11/07/19 History propranolol 40 mg tablet 40 mg PO BID 12/31/18 11/07/19 History duloxetine [Cymbalta] 60 mg PO BID 03/05/19 11/07/19 History gabapentin 300 mg PO HS 03/05/19 11/07/19 History oxycodone-acetaminophen [Percocet] 1 tab PO BID PRN 03/05/19 11/07/19 History ondansetron HCl [Zofran] 4 mg PO Q6H PRN #7 tab 04/04/19 11/07/19 Rx aripiprazole 5 mg tablet 5 mg PO DAILY 04/23/19 11/07/19 History promethazine 6.25 mg-codeine 10 5 ml PO Q6H PRN #240 ml 07/15/19 11/07/19 Rx mg/5 mL syrup pantoprazole 40 mg tablet,delayed 40 mg PO DAILY #30 tab 08/26/19 11/07/19 Rx release atorvastatin 80 mg PO DAILY 11/07/19 11/07/19 History cimetidine 400 mg PO HS 11/07/19 11/07/19 History cyclobenzaprine 10 mg PO TID 11/07/19 11/07/19 History linaclotide [Linzess] 290 mcg PO DAILY 11/07/19 11/07/19 History Patient History Medical History Anxiety Degenerative disc disease cervical Depression Essential tremor occasional hands + head- on propranolol Fibromyalgia GERD (gastroesophageal reflux disease) occasional Hiatal hernia History of difficult intubation ACDF C5-C7 with iliac crest bone graft: 03/10/14: Grade view 1, Glidescope #3, ETT 7.5 at [facility] Hyperlipidemia Migraine hx Osteoarthritis Temporomandibular joint disorder left side clicking; no locking Surgical History H/O hand surgery X [id number] FOR FRACTURE/NON BONE HEALING History of arthroscopy LEFT KNEE MENISCUS REPAIR History of bilateral tubal ligation History of colonoscopy History of elbow surgery TENDONS-LEFT History of esophagogastroduodenoscopy (EGD) History of herniorrhaphy X 2 History of repair of hiatal hernia Laparoscopic Hiatal Hernia Repair with 360 degree Fundoplication,- Tray Marion, 04/04/19 History of repair of rotator cuff RIGHT History of tooth extraction WISDOM TEETH S/P cervical spinal fusion Family History Mother Family history of diabetes mellitus Social History Preferred Language: Mauritanian Communication Ability: Effective Salvage Cutter Required: No Beliefs That Will Affect Care: None Current Living Situation: Spouse Other Information That Helps Us Care for You: No Feels Safe at Home: Yes Safety Concerns: Feels Safe At This Time Smoking Status: Current every day smoker Tobacco Type: cigarettes ; Cigarettes Per Day: 10 ; Second Hand Exposure: No ; Hx Alcohol Use: No Hx Substance Use: No Review of Systems Review of Systems: All systems reviewed & are unremarkable except as noted in Subjective Physical Exam Physical Exam: Left Hip: + shortening and internal rotation of Lt LE. Pain with log roll. Unable to perform SLRT. Able to actively move digits and dorsi/plantarflex foot. NV intact. ROM of hip not tested. TTP in groin. Left elbow: patient holding arm flexed to 90 degrees. Obvious edema to posterior elbow with exquisite TTP. Referred pain with Pronation and supination of hand. Chronic forearm pain with wrist ROM. Tingly sensation to palpation over pads of 4th and 5th digits. Otherwise NV intact in Lt UE. Results & Data ([facility]) Vital Signs (Past 12 Hours) Vital Signs Temp Pulse Pulse Resp BP BP Pulse Ox 11/07/19 11:21 73 18 124/78 93 11/07/19 09:37 36.5 C 92 H 17 144/75 H 99 Laboratory Results 11/07/19 11/07/19 11/07/19 Range/Units 12:05 10:24 10:24 WBC (4.8-10.8) K/uL RBC (4.2-5.4) M/uL Hgb (12.0-16.0) g/dL Hct (37-47) % MCV (80-100) fL MCH (25-34) pg MCHC (32-36) g/dL RDW Std Deviation (36.4-46.3) fL RDW Coeff of Tereza (11.5-14.5) % Plt Count (130-400) K/uL MPV (7.4-10.4) fL Immature Gran % (Auto) % Neut % (Auto) % Lymph % (Auto) % Collier % (Auto) % Eos % (Auto) % Baso % (Auto) % Immature Gran # (Auto) (0.00-0.02) K/uL Neut # (Auto) (1.4-6.5) K/uL Lymph # (Auto) (1.2-3.4) K/uL Collier # (Auto) (0.11-0.59) K/uL Eos # (Auto) (0-0.5) K/uL Baso # (Auto) (0-0.2) K/uL PT (9.0-12.0) Seconds INR (0.9-1.1) Sodium 141 (136-145) mmol/L Potassium 4.0 (3.5-5.1) mmol/L Chloride 111 H (98-107) mmol/L Carbon Dioxide 27 (21-32) mmol/L Anion Gap 3.0 (3-11) BUN 14 (7-18) mg/dl Creatinine 1.08 (0.6-1.2) mg/dl Est Cr Clr Drug Dosing 70.1 ml/min Est GFR ( Amer) 66.9 Est GFR (Non-Af Amer) 57.7 BUN/Creatinine Ratio 12.7 (10-20) Glucose 112 H (70-99) mg/dl Calcium 8.2 L (8.5-10.1) mg/dl Total Bilirubin 0.3 (0.2-1) mg/dl AST 23 (15-37) U/L ALT 34 (12-78) U/L Alkaline Phosphatase 105 (45-117) U/L Total Protein 6.6 (6.4-8.2) gm/dl Albumin 3.4 (3.4-5.0) gm/dl Globulin 3.2 (2.5-4.0) gm/dl Albumin/Globulin Ratio 1.1 (0.9-2) COVID-19 PCR Pending Blood Type O Negative Antibody Screen NEGATIVE 11/07/19 11/07/19 Range/Units 10:24 10:24 WBC 14.54 H (4.8-10.8) K/uL RBC 3.83 L (4.2-5.4) M/uL Hgb 12.3 (12.0-16.0) g/dL Hct 38.1 (37-47) % MCV 99.5 (80-100) fL MCH 32.1 (25-34) pg MCHC 32.3 (32-36) g/dL RDW Std Deviation 49.0 H (36.4-46.3) fL RDW Coeff of Tereza 13.5 (11.5-14.5) % Plt Count 224 (130-400) K/uL MPV 9.4 (7.4-10.4) fL Immature Gran % (Auto) 0.3 % Neut % (Auto) 76.9 % Lymph % (Auto) 15.7 % Collier % (Auto) 4.2 % Eos % (Auto) 2.8 % Baso % (Auto) 0.1 % Immature Gran # (Auto) 0.05 H (0.00-0.02) K/uL Neut # (Auto) 11.19 H (1.4-6.5) K/uL Lymph # (Auto) 2.28 (1.2-3.4) K/uL Collier # (Auto) 0.61 H (0.11-0.59) K/uL Eos # (Auto) 0.40 (0-0.5) K/uL Baso # (Auto) 0.01 (0-0.2) K/uL PT 10.4 (9.0-12.0) Seconds INR 1.0 (0.9-1.1) Sodium (136-145) mmol/L Potassium (3.5-5.1) mmol/L Chloride (98-107) mmol/L Carbon Dioxide (21-32) mmol/L Anion Gap (3-11) BUN (7-18) mg/dl Creatinine (0.6-1.2) mg/dl Est Cr Clr Drug Dosing ml/min Est GFR ( Amer) Est GFR (Non-Af Amer) BUN/Creatinine Ratio (10-20) Glucose (70-99) mg/dl Calcium (8.5-10.1) mg/dl Total Bilirubin (0.2-1) mg/dl AST (15-37) U/L ALT (12-78) U/L Alkaline Phosphatase (45-117) U/L Total Protein (6.4-8.2) gm/dl Albumin (3.4-5.0) gm/dl Globulin (2.5-4.0) gm/dl Albumin/Globulin Ratio (0.9-2) COVID-19 PCR Blood Type Antibody Screen Diagnostic Findings Diagnostic Findings XR elbow LT min 3V routine IMPRESSION: 1. Acute comminuted and displaced intra-articular fracture of the olecranon. 2. Soft tissue swelling with joint effusion. XR hip LT 2V w pelvis IMPRESSION: Acute mildly impacted and displaced transcervical fracture of the left femur. XR knee LT 1 or 2V routine IMPRESSION: No acute fracture or dislocation. XR chest 1V portable IMPRESSION: No active disease in the chest. ECG Findings: + ectopy Additional Comments: ECG Indication: other (Fall) Rate (beats per minute): 77 Rhythm: normal sinus Findings: no acute ischemic change Comparison ECG Date: from (03/04/2019) Change: no significant change
[2019-11-07] MEDS ORDERED: METOCLOPRAMIDE HCL INJ 5 MG/ML 2 ML VIAL IV PRN ×2 (12:29→19:13)
[2019-11-07 12:40] LABS: Appearance Urine Clear (Clear); Bilirubin Urine Negative (Negative); Blood Urine Negative (Negative); Color Urine Yellow; Glucose Urine UA Negative (Negative); Ketones Urine Negative (Negative); Leukocyte Esterase Urine Negative (Negative); Nitrite Urine Negative (Negative); Protein Urine Negative (Negative); Urobilinogen Urine Negative (Negative); pH Urine 7.5 (4.5-7.5)
[2019-11-07] MEDS ORDERED: TRANEXAMIC ACID / 0.7% NACL 1,000 MG/100 ML BAG IV STA (12:41)
[2019-11-07] MEDS ORDERED: DEXAMETHASONE SOD INJ 4 MG/ML VIAL IV STA (12:42)
[2019-11-07] MEDS ORDERED: CEFAZOLIN 2000MG 2,000 MG/15 ML SYR IV SCH (12:45)
[2019-11-07] MEDS ORDERED: SCOPOLAMINE 1.5 MG TDSY TD ONE (12:45)
--- NOTE | 2019-11-07 13:19 | Anesthesiology Consultation ---
Date of Service November 07, 2019 Assessment & Plan (1) Encounter for pre-operative examination: Chart Review Chart Review: Acceptable Risk for Surgery Consults Requested none ASA ASA3 Proposed Anesthesia Anesthesia Type: General Risk / Benefits Reviewed With: PT / POA / Parent / Guardian, Accepts Plan and Informed Consent Obtained History Surgery Operation Date: 11/07/19 10:10 Proposed Procedures p Left Total Hip Arthroplasty; - Jacob England MD s Left Olecranon Fracture Open Reduction Internal Fixation - Jacob England MD Height/Weight Height: 6 ft 1 in Weight: 81.8 kg Allergies Allergy/AdvReac Type Severity Reaction Status Date / Time pregabalin Allergy Unknown hives/rash, Verified 11/07/19 10:41 pruritus tramadol AdvReac Mild GI upset Verified 11/07/19 10:41 cyclobenzaprine AdvReac Gastrointestinal Verified 11/07/19 10:41 [From Flexeril] Upset Medications Home Medications Medication Instructions Recorded Confirmed Last Taken amitriptyline 100 mg tablet 100 mg PO HS 12/31/18 11/07/19 11/06/19 lorazepam 0.5 mg tablet 0.5 mg PO BID 12/31/18 11/07/19 11/06/19 propranolol 40 mg tablet 40 mg PO BID 12/31/18 11/07/19 11/06/19 duloxetine [Cymbalta] 60 mg PO BID 03/05/19 11/07/19 11/06/19 gabapentin 300 mg PO HS 03/05/19 11/07/19 11/06/19 oxycodone-acetaminophen [Percocet] 1 tab PO BID PRN 03/05/19 11/07/19 11/06/19 ondansetron HCl [Zofran] 4 mg PO Q6H PRN #7 tab 04/04/19 11/07/19 11/06/19 aripiprazole 5 mg tablet 5 mg PO DAILY 04/23/19 11/07/19 11/06/19 promethazine 6.25 mg-codeine 10 5 ml PO Q6H PRN #240 ml 07/15/19 11/07/19 11/06/19 mg/5 mL syrup pantoprazole 40 mg tablet,delayed 40 mg PO DAILY #30 tab 08/26/19 11/07/19 11/06/19 release atorvastatin 80 mg PO DAILY 11/07/19 11/07/19 11/06/19 cimetidine 400 mg PO HS 11/07/19 11/07/19 11/06/19 cyclobenzaprine 10 mg PO TID 11/07/19 11/07/19 11/06/19 linaclotide [Linzess] 290 mcg PO DAILY 11/07/19 11/07/19 11/06/19 Active Medications Generic Name Dose Route Start Last Admin Trade Name Freq PRN Reason Stop Dose Admin Hydromorphone HCl 0.25 - 0.5 mg 11/07/19 12:21 11/07/19 13:04 Dilaudid IV 11/21/19 12:20 0.5 mg Q2H PRN Administration Moderate/Severe Pain Lactated Ringer's 1,000 mls @ 125 mls/hr 11/07/19 11:45 11/07/19 12:10 Lr IV 12/07/19 11:44 125 mls/hr .Q8H ALECIA Administration NPO Date Last Intake of Fluids: 11/07/19 Time Last Intake of Fluids: 04:00 Date Last Intake of Solids: 11/06/19 Time Last Intake of Solids: 23:00 Past Medical History Medical History Anxiety Degenerative disc disease cervical Depression Essential tremor occasional hands + head- on propranolol Fibromyalgia GERD (gastroesophageal reflux disease) occasional Hiatal hernia History of difficult intubation ACDF C5-C7 with iliac crest bone graft: 03/10/14: Grade view 1, Glidescope #3, ETT 7.5 at [facility] Hyperlipidemia Migraine hx Osteoarthritis Temporomandibular joint disorder left side clicking; no locking Exercise / Class Metabolic Activity II 4-5 Yardwork/Stairs/Walk up hill Past Family History Family History Mother Family history of diabetes mellitus Past Surgical History Surgical History H/O hand surgery [id number] FOR FRACTURE/NON BONE HEALING History of arthroscopy LEFT KNEE MENISCUS REPAIR History of bilateral tubal ligation History of colonoscopy History of elbow surgery TENDONS-LEFT History of esophagogastroduodenoscopy (EGD) History of herniorrhaphy X 2 History of repair of hiatal hernia Laparoscopic Hiatal Hernia Repair with 360 degree Fundoplication,- Tray Marion, DO 04/04/19 History of repair of rotator cuff RIGHT History of tooth extraction WISDOM TEETH S/P cervical spinal fusion Past Anesthesia History No Hx of Anesthesia Complications and No Family Hx of Anesthesia Complications History of PONV No Hx of PONV and No Hx of Motion Sickness Social History Smoking Status: Current every day smoker tobacco type: cigarettes Smoking cigarettes per day: 10 Hx Alcohol Use: No Hx Substance Use: No Physical Exam Vital Signs Last Vital Signs Temp 97.7 F 11/07/19 09:37 Pulse 75 11/07/19 14:00 Resp 18 11/07/19 14:00 BP 123/75 11/07/19 14:00 Pulse Ox 95 11/07/19 14:00 ENMT Mouth: no dentition abnormality Thyromental Distance: > or= 3.5 Finger Breadths Mallampati Class: III Neck normal visual inspection Respiratory normal respiratory effort Auscultation: lungs clear to auscultation bilaterally Cardiovascular Rate/Rhythm: regular rate and regular rhythm Testing Laboratory Results 11/07/19 10:24 11/07/19 10:24 PT 10.4 Seconds (9.0-12.0) 11/07/19 10:24 INR 1.0 (0.9-1.1) 11/07/19 10:24 Urine Color Yellow 11/07/19 12:24 Urine Appearance Clear (Clear) 11/07/19 12:24 Urine pH 7.5 (4.5-7.5) 11/07/19 12:24 Ur Specific Marble 1.020 (1.000-1.030) 11/07/19 12:24 Urine Protein Negative (Negative) 11/07/19 12:24 Urine Glucose (UA) Negative (Negative) 11/07/19 12:24 Urine Ketones Negative (Negative) 11/07/19 12:24 Urine Nitrite Negative (Negative) 11/07/19 12:24 Ur Leukocyte Esterase Negative (Negative) 11/07/19 12:24 Blood Type Cancelled 11/07/19 12:51 Antibody Screen Cancelled 11/07/19 12:51 Electrocardiogram Date: 11/07/19 Findings: + NSR @ (77 bpm) Chest X-Ray Date: 11/07/19 Findings: + NAD
[2019-11-07] MEDS ORDERED: ePHEDrine sulfate 50 MG/ML AMP IV PRN (14:31)
[2019-11-07] MEDS ORDERED: HYDROmorphone INJ 1 MG/ML SYRINGE IV PRN (14:31)
[2019-11-07] MEDS ORDERED: ATROPINE SULFATE 0.1 MG/ML 10ML SYR IV PRN (14:31)
[2019-11-07] MEDS ORDERED: fentaNYL citrate 100 MCG/2 ML VIAL IV PRN (14:31)
[2019-11-07] MEDS ORDERED: ONDANSETRON INJ 2 MG/ML 2 ML VIAL ONE (14:35)
[2019-11-07] MEDS ORDERED: DEXAMETHASONE SOD INJ 4 MG/ML VIAL ONE (14:35)
[2019-11-07] MEDS ORDERED: ROCURONIUM BROMIDE 10 MG/ML 5 ML VIAL IV ONE (14:35)
[2019-11-07] MEDS ORDERED: LIDOCAINE HCL 2% 2 ML VIAL/AMP(20MG/ML) INFIL ONE (14:35)
[2019-11-07] MEDS ORDERED: SUCCINYLCHOLINE CHLORIDE 20 MG/ML 10 ML VIAL IV ONE (14:35)
[2019-11-07] MEDS ORDERED: PROPOFOL IV EMULSION 10 MG/ML 20 ML VIAL IV ONE (14:35)
[2019-11-07] MEDS ORDERED: HYDROmorphone INJ 2 MG/ML SYR/VIAL ONE (14:36)
[2019-11-07] MEDS ORDERED: MIDAZOLAM HCL 1 MG/ML 2ML VIAL ONE (14:36)
[2019-11-07] MEDS ORDERED: TRANEXAMIC ACID 1,000 MG in 0.9 % SODIUM CHLORIDE 100 ML IR ONE (16:00)
[2019-11-07] MEDS ORDERED: TRANEXAMIC ACID / 0.7% NACL 1,000 MG/100 ML BAG IV ONE (16:00)
[2019-11-07] MEDS: ROPIVACAINE 0.5% HCL/PF 150 MG, BUPIVACAINE 0.5% MPF 30 ML, EPINEPHrine 0.15 MG, Ketoro... INFIL SCH ×2 (16:01→17:38)
[2019-11-07] MEDS ORDERED: PHENYLEPHRINE 100MCG/ML 5ML SYR ONE (16:09)
--- NOTE | 2019-11-07 16:30 | XRay Report ---
XR hip LT 1V CLINICAL HISTORY: X-TABLE AP LEFT HIP IN OR 6 COMPARISON: 11/07/2019 DISCUSSION: A single intraoperative fluoroscopic spot image was obtained during placement of a total left hip arthroplasty. IMPRESSION: Intraoperative radiograph obtained during a left total hip arthroplasty. ACT 112: Negative or not required by law. Electronically signed by: Benton Singh M.D. 11/07/2019 4:29 PM
[2019-11-07] MEDS ORDERED: EPINEPHrine INJ 1 MG/ML AMP ONE (17:00)
[2019-11-07] MEDS ORDERED: BUPIVACAINE 0.5 % 5 MG/1 ML MPF 30ML VIAL ONE (17:00)
--- NOTE | 2019-11-07 18:41 | Fluoroscopy Report ---
FL elbow LT 3V RTN CLINICAL HISTORY: LEFT ELBOW ORIF COMPARISON STUDY: Left elbow radiographs November 07, 2019 10:00 AM. FLUOROSCOPY TIME: 30 seconds. FLUOROSCOPIC IMAGES: 2 FINDINGS: Fluoroscopy was provided during internal fixation of the left olecranon fracture. The hardw are is intact. Fracture alignment has markedly improved and appears anatomic. No unexpected radiopaqu e foreign bodies are noted. IMPRESSION: Fluoroscopy provided for internal fixation of the left olecranon fracture. ACT 112: Negative or not required by law. Electronically signed by: Fredy Bhatti M.D. 11/07/2019 6:40 PM
--- NOTE | 2019-11-07 18:45 | Post Operative Brief Note ---
Immediate Post Op Note v1 Date of Surgery November 07, 2019 Pre & Post Diagnosis Operation Date: 11/07/19 10:10 Pre-Op Diagnosis: Closed displaced fracture of left hip; comminuted displaced fracture of left olecranon process Post-Op Diagnosis: Closed fracture of left hip; comminuted displaced fracture of left olecranon process I identified the patient and participated in the time-out.: Yes Procedure Operation Date: 11/07/19 10:10 Actual Procedures p Left Total Hip Arthroplasty;(Left) - Jacob England MD s Left Olecranon Fracture Open Reduction Internal Fixation(Left) - Jacob England MD Surgeon Jacob England MD Welfare Officer AYANNA Celis PA-C Estimated Blood Loss 125 (100mL for hip; mL for elbow.) Findings Consistent with Post-Op Diagnosis Fluids 2000 Anesthesia Type General Complications none Disposition Accompanied Patient To Recovery: No Disposition: Recovery Room
[2019-11-07] MEDS ORDERED: DiphenhydrAMINE HCL 50 MG/ML VIAL IV PRN (19:13)
[2019-11-07] MEDS ORDERED: MAGNESIUM HYDROXIDE SUSP 30 ML UDC PO PRN ×2 (19:13→20:02)
[2019-11-07] MEDS ORDERED: ALUMINUM/MAGNESIUM SUSP 30 ML UDC PO PRN (19:13)
[2019-11-07] MEDS ORDERED: bisacodyL 10 MG SUPP PR PRN ×2 (19:13→20:02)
[2019-11-07] MEDS ORDERED: NALOXONE HCL 0.4 MG/1 ML VIAL/CARP IV PRN ×2 (19:13→20:02)
--- NOTE | 2019-11-07 19:13 | Operative Report ---
Post Operative Report Pre & Post Diagnosis Operation Date: 11/07/19 10:10 Pre-Op Diagnosis: Closed displaced fracture of left hip; comminuted displaced fracture of left olecranon process Post-Op Diagnosis: Closed fracture of left hip; comminuted displaced fracture of left olecranon process I identified the patient and participated in the time-out.: Yes Procedure Operation Date: 11/07/19 10:10 Actual Procedures p Left Total Hip Arthroplasty;(Left) - Jacob England MD s Left Olecranon Fracture Open Reduction Internal Fixation(Left) - Jacob tiwari MD Surgeon Jacob England MD Computer Support Analyst AYANNA Celis PA-C Estimated Blood Loss 125 (100mL for hip; mL for elbow.) Findings Consistent with Post-Op Diagnosis Specimens Left femoral head Complications none Disposition Accompanied Patient To Recovery: Yes Disposition: Recovery Room Description of Procedure I was present during the entire case assisting with retraction, wound closure, dressing and splint application. Please see Dr. England procedure note for specifics. I attest to the content of the Intraoperative Record and any orders documented therein. Any exceptions are noted below.
--- NOTE | 2019-11-07 19:53 | XRay Report ---
XR elbow LT 2V CLINICAL HISTORY: post op ORIF COMPARISON: Left elbow radiographs performed earlier today. FINDINGS: These images demonstrate interval internal fixation of the olecranon fracture. Fracture al ignment has markedly improved and appears anatomic. The hardware is intact. There are no unexpected r adiopaque foreign bodies. There is no overlying cast. IMPRESSION: Expected findings following internal fixation of the left olecranon fracture. ACT 112: Negative or not required by law. Electronically signed by: Fredy Bhatti M.D. 11/07/2019 7:52 PM
[2019-11-07] MEDS ORDERED: LORazepam 0.5 MG TAB PO PRN (20:02)
--- NOTE | 2019-11-07 20:06 | XRay Report ---
XR hip 1V LT w pelvis CLINICAL HISTORY: Postoperative evaluation. COMPARISON: Left hip radiographs November 07, 2019. FINDINGS: Alignment of the total left hip arthroplasty is anatomic. There is no fracture or unexpect ed radiopaque foreign body. There is an acetabular screw. IMPRESSION: Expected findings following total left hip arthroplasty. ACT 112: Negative or not required by law. Electronically signed by: Fredy Bhatti M.D. 11/07/2019 8:05 PM
--- NOTE | 2019-11-07 20:09 | Anesthesiology Progress Note ---
Date of Service November 07, 2019 Anesthesia Post Procedure Vital Signs Vital Signs: Temp Pulse Pulse Resp BP BP Pulse Ox 11/07/19 19:55 36.2 C L 100 H 15 119/77 93 11/07/19 19:45 92 H 13 129/74 100 11/07/19 19:35 91 H 13 133/82 98 11/07/19 19:25 83 11 L 130/80 100 11/07/19 19:15 36.0 C L 73 14 138/86 100 11/07/19 14:38 36.7 C 82 16 123/77 96 11/07/19 14:00 75 18 123/75 95 11/07/19 13:30 74 17 114/69 96 11/07/19 13:00 74 16 109/69 93 11/07/19 12:30 74 16 106/67 93 11/07/19 12:01 95 11/07/19 12:00 72 16 111/66 87 L 11/07/19 11:26 79 17 124/78 92 11/07/19 11:21 73 18 124/78 93 11/07/19 09:37 36.5 C 92 H 17 144/75 H 99 Pain Intensity Left Elbow: Pain Intensity: 4 Left Hip: Pain Intensity: 5 Transfer of Care Handoff Completed per policy Notes Mental Status: alert / awake / arousable and participated in evaluation Patient Amnestic to Procedure: Yes Nausea / Vomiting: adequately controlled Pain: adequately controlled Airway Patency, RR, SpO2: stable & adequate BP & HR: stable & adequate Hydration State: stable & adequate Anesthetic Complications: no major complications apparent and Pt Satisfied with anesthetic care
[2019-11-07] MEDS: CHECK SCOPOLAMINE PATCH PLACEMENT SCH ×2 (20:23→23:43)
[2019-11-07] MEDS: SODIUM CHLORIDE 0.9% 1000ML 1,000 ML IV SCH (20:25)
[2019-11-07] MEDS ORDERED: GABAPENTIN 300 MG CAP PO SCH (21:00)
[2019-11-07] MEDS ORDERED: SENNA 8.6 MG TAB PO SCH (21:00)
[2019-11-07] MEDS ORDERED: FAMOTIDINE 20 MG TAB PO SCH (21:00)
[2019-11-07] MEDS ORDERED: DOCUSATE SODIUM/SENNA 50/8.6MG TAB PO SCH (21:00)
[2019-11-07] MEDS ORDERED: AMITRIPTYLINE HCL 100 MG TAB PO SCH (21:00)
[2019-11-07] MEDS: DOCUSATE SODIUM 100 MG CAP PO SCH (21:10)
[2019-11-07] MEDS: DULOXETINE HCL 60 MG CAP PO SCH (21:11)
[2019-11-07] MEDS: PROPRANOLOL HCL 20 MG TAB PO SCH (21:12)
[2019-11-07] MEDS: KETOROLAC 30 MG/ML VIAL IV SCH (21:16)
[2019-11-07] MEDS ORDERED: PANTOprazole 40 MG TAB PO STA (21:52)
[2019-11-07] MEDS: ACETAMINOPHEN 500 MG TAB PO SCH (22:05)
--- NOTE | 2019-11-07 22:07 | Operative Report (OR) ---
DATE OF OPERATION: 11/07/2019 PREOPERATIVE DIAGNOSES: 1. Left displaced closed femoral neck fracture. 2. Comminuted, displaced, intraarticular, closed olecranon fracture of the left elbow. POSTOPERATIVE DIAGNOSES: 1. Left displaced closed femoral neck fracture. 2. Comminuted, displaced, intraarticular, closed olecranon fracture of the left elbow. OPERATIONS PERFORMED: 1. Left total hip arthroplasty for femoral neck fracture. 2. Open reduction and internal fixation of comminuted, intraarticular, displaced, closed left olecranon fracture. A 22 modifier should be added to this case due to the comminuted and complex nature of this fracture. INTRAVENOUS FLUIDS: 2000 mL of crystalloid. ESTIMATED BLOOD LOSS: 125 mL. SPECIMENS: Femoral head. COMPLICATIONS: None. IMPLANTS: For the total hip arthroplasty: 1. [employer] Gription acetabular sector cup 54 mm outer diameter. 2. [employer] cancellous bone screw 6.5 mm x 35 mm. 3. [employer] Ultrex polyethylene liner neutral for a 32 mm femoral head. 4. [employer] [place] size 5 standard offset stem. 5. [employer] delta 32 mm ceramic femoral head with a +1 offset. For the olecranon fracture: Synthes stainless steel proximal ulna plate with multiple cortical locking and nonlocking screws. INDICATIONS: Ms. Oneal is a 54-year-old female who fell earlier this morning at home sustaining a displaced left femoral neck fracture and a comminuted displaced intraarticular left olecranon fracture. She was unable to ambulate and was brought from the scene of the injury to the Emergency Room by ambulance. X-rays were obtained in the Emergency Room demonstrating the above injuries. The patient was seen and examined in the Emergency Room. I had a long discussion with her about the diagnoses and treatment options. Surgery was recommended to treat her olecranon fracture to allow her to regain elbow extension strength. For her hip fracture, we talked about open reduction and internal fixation versus arthroplasty. Given her age and comorbidities of psychiatric medications and smoking, my recommendation was for total hip arthroplasty as the risk of avascular necrosis and subsequent failure of an open reduction and internal fixation is too high. After reviewing all the risks and benefits of surgery, alternatives to surgery and expected outcomes, the patient elected to proceed. All questions were answered. Informed consent was signed. She had not had anything to eat or drink since 4:30 this morning, and therefore, we elected to proceed to the operating room as soon as it was ready on the day of her injury. OPERATIVE FINDINGS: Left total hip arthroplasty was performed through a posterior approach. The olecranon fracture was plated through a posterior approach using a [employer]ynthe[employer] variable angle locking plate with multiple screws including 2 screws outside the plate to treat the comminuted fracture fragments. DESCRIPTION OF THE OPERATION: The patient was identified in the Emergency Room where her surgical sites were marked. She was brought to the main operating room where general anesthesia was administered on the hospital bed. She was then carefully moved over onto the operating room table and rolled up into the lateral decubitus position. An axillary roll was placed. The Stulberg positioner was used around her pelvis. She was then prepped and draped in the normal sterile fashion. Prior to incision, a multidisciplinary timeout was called. All in the room were in agreement. We began by performing the total hip arthroplasty. A posterior approach to the hip was made with the incision approximately 14 cm in length. We dissected down through subcutaneous tissues to the level of the fascia. The fascia was incised in line of the incision. Charnley bow was placed. The piriformis and short external rotators were dissected off the posterior aspect of the hip and a box cut was made in the capsule. The femoral head and femoral neck fracture were immediately visible. We then removed the femoral head using a corkscrew. Small bony fragments were also removed. We then exposed the femoral neck. The angle cutting guide was used to make a neck cut approximately 10 mm above the lesser trochanter. We then exposed the acetabulum. There was no significant arthritis in the femoral head or the acetabulum. We sharply excised the labrum and removed the contents of the cotyloid fossa including the ligamentum teres. We then gently reamed her acetabulum starting with a 44 mm reamer and reamed all the way up to a size 54 cup. We then irrigated out the acetabulum and opened up the [employer] Gription 54 mm outer diameter cup and impacted this into position with 40 degrees of lateral opening and 25 degrees of anteversion. A single cancellous bone screw was placed up in the ilium with an excellent bite. We then placed the polyethylene liner for a 32 mm femoral head, which was done without difficulty. Next, we prepared her femur. The lateral hip capsule and the lateral neck were removed. The intramedullary guide was used followed by the lateralizing reamer. We then reamed her up to a size 5 [place] stem. We then broached her all the way up to a size 5 [place] stem. We started with a standard offset +5 neck. We attempted to reduce the hip, but were unable to, indicating that our head length was too long. Therefore, we downsized her to a +1 head. We were then able to easily reduce her hip. We checked her leg lengths and they were symmetric. She was stable in extension and external rotation. She was stable in the sleeper position. At 90 degrees of hip flexion, she could be internally rotated 65 degrees before beginning to lever out of the cup. I was very happy with the stability exam. We did bring an x-ray to get a plain film to assess her leg lengths. We had some difficulty getting an x-ray that showed both hips at the same time. However, we were able to compare the film of the operated hip to her preoperative films and the lesser trochanter relationship to the ischium was now symmetric with the other side, which we were happy with. Next, the femoral trial was removed and the femoral canal was irrigated and dried. The real size 5 femoral [place] standard offset stem was opened up and was impacted down into position. It sat approximately 1 mm more proud than the trial. We therefore opened up the 32 mm ceramic femoral head with a +1 offset and gently impacted this onto the trunnion, which had been cleaned and dried. The hip was atraumatically reduced. We again checked our leg lengths and these were symmetric, which we were very happy with. The wound was then irrigated out with dilute Betadine solution. The periarticular injection was placed. Her piriformis and short external rotators were repaired through bone tunnels in the posterior aspect of the greater trochanter. The fascia was run with a looped #1 PDS. The deep subcutaneous layer was closed with a running 0 PDS suture. The deep dermal layer was closed with 2-0 Vicryl. ZipLine was used for the skin. A Silverlon dressing was then applied. We then removed all the drapes and moved on to the olecranon fracture fixation. The operating room table was unlocked and was rotated in the room, so the elbow was pointing towards the back table away from anesthesia. We removed the pillows between her arms and forward flexed the nonoperative arm so that we could get our C-arm shots of the left elbow. An upper arm bowser was applied to the bed as was a nonsterile tourniquet. The Stulberg and axillary roll did not need to be adjusted. We did apply a SCD to her left lower leg, and this was hooked up to the SCD machine. The right leg SCD had been the entirety of the case. We then prepped and draped the left upper extremity using the normal sterile technique. Another timeout was performed. All in the room were in agreement. A 10 cm long incision was made starting about 2 cm proximal to the tip of the olecranon and curving around the olecranon tip and then following the subcutaneous border of the ulna. We dissected down through subcutaneous tissues to the level of the fascia. We incised directly on to the periosteum of the ulna distally and raised the periosteum to expose the medial and lateral borders of the ulna. The triceps was identified and its attachments to the comminuted fragment of the olecranon. There were 3 main chunks including a posterior, medial, and lateral fragment. We irrigated out the fracture site and removed any fracture hematoma. The joint was thoroughly lavaged as well through the fracture. We then reduced the fracture using a dental pick and while holding the elbow about 30 degrees short of full extension, each of the 3 fracture fragments were reduced and secured with K-wires. While placing the K-wires, we did take great care to place the K-wires outside of the region where the plate would sit. We then split the triceps muscle in line with its fibers to allow the plate to sit directly down onto the bony surface posteriorly. We then brought in fluoroscopy and verified the reduction, which we were very happy with. We then placed the plate over the olecranon and secured the corner of the plate to the olecranon using a 16 mm nonlocking screw. This gave us good fixation in the posterior fragment. However, the medial and lateral fragments were going to be outside of the plate regardless. Next, we placed two 3.5 mm cortical screws sequentially in the distal aspect of the plate in compression mode. These further compressed the fracture, which we were happy with. We then placed a 2.7 mm cortical screw into each of the medial and lateral fragments in a crossing type of fashion. The K-wires were removed and we had good stability of the fracture. The proper screw lengths were confirmed as was the articular reduction using fluoroscopy. Once all of our K wires had been removed, we then under fluoroscopic guidance placed our home run stitchdowns toe former the intramedullary shaft of the ulna. This was a 55 mm cortical screw. Once the screw was grabbing the far cortex and down on to the plate, we did loosen up the 2 distal cortical screws to allow us to further compress the fracture and bring the plate down on to the bone. The screws were retightened and this did achieve our objective nicely. Finally, 2 more locking screws were placed into the plate, which were variable angle locking screws, 2.7 mm in diameter. The first was placed at the most proximal hole in the tip of the olecranon and angled away from the joint. The second locking screw was placed at the end of the coronoid. Again, excellent fixation was obtained. At this point, our final fluoroscopic images were obtained. We were very happy with the reduction as well as the screw lengths and plate position. The elbow was brought through a full range of motion and there was excellent stability. We then irrigated out the wound and began to close. The triceps split was closed with a running 0 Vicryl suture. The periosteum over the distal aspect of the plate was closed with running 0 Vicryl suture. The deep dermis was closed with a running 2-0 Vicryl suture. The skin was closed with 4-0 nylon sutures in horizontal mattress fashion. A 30 mL of 0.5% Marcaine with epinephrine was injected into the subcutaneous tissues for postoperative pain control since the patient is a chronic opioid user. The patient was then placed into a posterior plaster slab splint with the elbow held at 90 degrees. She was then carefully rolled supine. Her leg lengths were checked and were symmetric. An abduction pillow was placed between her legs and she was transferred on to the hospital bed, then rolled to the recovery room in stable condition. POSTOPERATIVE COURSE: The patient will be admitted to the internal medicine service. She will be weightbearing as tolerated on her left lower extremity with posterior hip precautions. She will be nonweightbearing through the left upper extremity and we would like to have her use a cane in her right hand for the next 6 weeks. Recommend Lovenox 40 mg subcutaneously daily for DVT prophylaxis starting tomorrow. Recommended a 3-week course of Lovenox before switching to aspirin 81 mg twice a day for the following 3 weeks. I attest to the content of the Intraoperative Record and any orders documented therein. Any exceptions are noted below. MTDD
[2019-11-07] MEDS: CEFAZOLIN 2000MG 2,000 MG/15 ML SYR IV SCH (22:30)
[2019-11-07] MEDS: OXYCODONE HCL IR 5 MG TAB (IMMEDIATE RELEASE) PO PRN (22:38)
--- NOTE | 2019-11-07 23:23 | Electrocardiogram Report ---
Test Reason : Blood Pressure : / mmHG Vent. Rate : 077 BPM Atrial Rate : 077 BPM P-R Int : 146 ms QRS Dur : 094 ms QT Int : 418 ms P-R-T Axes : 069 073 068 degrees QTc Int : 473 ms Normal sinus rhythm Normal ECG When compared with ECG of 04-MAR-2019 11:15, No significant change was found Confirmed by Davy Diaz ([id number]) on 11/07/2019 11:23:57 PM Referred By: REFERRED SELF Confirmed By:Davy Diaz
[2019-11-08] MEDS: KETOROLAC 30 MG/ML VIAL IV SCH ×3 (03:10→14:23)
[2019-11-08] MEDS: ACETAMINOPHEN 500 MG TAB PO SCH ×2 (05:54→14:20)
[2019-11-08] MEDS: SODIUM CHLORIDE 0.9% 1000ML 1,000 ML IV SCH (05:54)
[2019-11-08 06:15] LABS: Hemoglobin 10.8 g/dL (12.0-16.0); Immature Granulocytes # (auto) 0.04 K/uL (0.00-0.02); Immature Granulocytes % (auto) 0.3 %; Lymphocytes % (auto) 11.4 %; Mean Corpuscular Hemoglobin 33.9 pg (25-34); Mean Corpuscular Hgb Conc 33.8 g/dL (32-36); Mean Corpuscular Volume 100.3 fL (80-100); Mean Platelet Volume 9.2 fL (7.4-10.4); Monocytes # (auto) 0.89 K/uL (0.11-0.59); Monocytes % (auto) 5.6 %; Neutrophils % (auto) 82.7 %; Platelet Count 218 K/uL (130-400); RDW Coefficient of Variation 13.4 % (11.5-14.5); RDW Standard Deviation 49.3 fL (36.4-46.3); Red Blood Count 3.19 M/uL (4.2-5.4); White Blood Count 15.83 K/uL (4.8-10.8)
[2019-11-08 06:52] LABS: BUN Creatinine Ratio 15.9 (10-20); Calcium 8.3 mg/dl (8.5-10.1); Creatinine Clr Calc Pharmacy 78.8 ml/min; Est GFR (African American) 77.2; Est GFR (Non-African American) 66.6; Potassium 4.1 mmol/L (3.5-5.1)
[2019-11-08] MEDS ORDERED: dexAMETHasone 4 MG TAB PO SCH (08:00)
[2019-11-08] MEDS: CEFAZOLIN 2000MG 2,000 MG/15 ML SYR IV SCH (08:23)
[2019-11-08] MEDS: CHECK SCOPOLAMINE PATCH PLACEMENT SCH ×2 (08:27→16:35)
[2019-11-08] MEDS ORDERED: PANTOprazole 40 MG TAB PO SCH (09:00)
[2019-11-08] MEDS ORDERED: ARIPiprazole 5 MG TAB PO SCH (09:00)
[2019-11-08] MEDS ORDERED: LINACLOTIDE 72 MCG CAPSULE PO SCH ×2 (09:00→21:00)
[2019-11-08] MEDS ORDERED: MULTIVITAMIN TAB PO SCH (09:00)
[2019-11-08] MEDS ORDERED: ENOXAPARIN INJ 40 MG/0.4 ML SYR SQ SCH (09:00)
[2019-11-08] MEDS ORDERED: ATORVASTATIN 40 MG TAB PO SCH ×2 (09:00→21:00)
[2019-11-08] MEDS: DULOXETINE HCL 60 MG CAP PO SCH (09:14)
[2019-11-08] MEDS: DOCUSATE SODIUM 100 MG CAP PO SCH (09:15)
[2019-11-08] MEDS: PROPRANOLOL HCL 20 MG TAB PO SCH (09:39)
[2019-11-08] MEDS ORDERED: Nursing to Pharmacy Communication SCH (09:45)
--- NOTE | 2019-11-08 13:56 | Orthopedic Progress Note ---
Date of Service November 08, 2019 Assessment & Plan (1) Closed fracture of left hip: S/P LTHR POD 1 doing well 1)Follow SHP L LE 2)WBAT L LE with yue walker 3)PT/OT 4)Pain meds per medicine service 5)Ice left hip 3-5xs a day for pain and swelling 6)Silverlon dressing to remain on for approximately 2wks. 7)DVT prophylaxis: Lovenox 40mg SQ daily x 3wks and knee high TEDS x 3wks 8)D/C plans with case management: Patient wishes to go home with HHPT Present on Admission?: Yes (2) Closed fracture of left olecranon process: S/P ORIF L Olecranon fracture POD 1 doing well 1)Keep post-op splint on, clean, and dry 2)Sling at all times other than showering/bathing, dressing, exercise 3)NWBING and no lifting to LUE 4)Keep left arm elevated as much as possible to avoid swelling 5)Ice left elbow 3-5xs a day for pain and swelling 6)Pain meds per medicine service 7)D/C plans with case management: Patient wishes to go home with HHPTS/P LTHR POD 1 doing well Present on Admission?: Yes Admission and Anticipated Discharge Date Admission Date: November 07, 2019 Subjective Patient sitting up in recliner chair. Finished with lunch. Dr England saw her earlier today. Medicine saw in AM. She denies f/c/s, SOB, CP, B/B issues, N/V, lightheadesness or dizziness. She is tolerating PO diet and fluids. Pain controlled. She has been to restroom. She had PT. Ambulating with hemiwalker. Case management seeing patient and discussing D/C to home with HHPT. Patient admits she needs cues to remember SHP L LE. Physical Exam Physical Exam: Left UE in splint. Sling donned. Splint C/D/I. Diminished sensation to left pinky, otherwise intact. Able to wiggle all fingers. Brisk capillary refill. No pain with gentle left shoulder motion. Left Hip silverlon dressing C/D/I. No significant redness, warmth, or bruising noted. Neg L SLR. Neg homans B. Calves are soft. NV intact B LE. Palpable DP and PT pulses. Able to wiggles toes and ankles. Results & Data ([facility]) Vital Signs (Past 12 Hours) Vital Signs Temp Pulse Resp BP Pulse Ox 11/08/19 11:35 36.6 C 76 16 104/65 98 11/08/19 09:18 96/59 L 11/08/19 08:01 107/64 11/08/19 07:36 36.6 C 71 16 87/46 L 94 11/08/19 03:20 36.6 C 67 14 101/61 96 Laboratory Results 11/08/19 11/08/19 Range/Units 05:53 05:53 WBC 15.83 H (4.8-10.8) K/uL RBC 3.19 L (4.2-5.4) M/uL Hgb 10.8 L (12.0-16.0) g/dL Hct 32.0 L (37-47) % MCV 100.3 H (80-100) fL MCH 33.9 (25-34) pg MCHC 33.8 (32-36) g/dL RDW Std Deviation 49.3 H (36.4-46.3) fL RDW Coeff of Tereza 13.4 (11.5-14.5) % Plt Count 218 (130-400) K/uL MPV 9.2 (7.4-10.4) fL Immature Gran % (Auto) 0.3 % Neut % (Auto) 82.7 % Lymph % (Auto) 11.4 % [place] % (Auto) 5.6 % Eos % (Auto) 0.0 % Baso % (Auto) 0.0 % Immature Gran # (Auto) 0.04 H (0.00-0.02) K/uL Neut # (Auto) 13.10 H (1.4-6.5) K/uL Lymph # (Auto) 1.80 (1.2-3.4) K/uL [place] # (Auto) 0.89 H (0.11-0.59) K/uL Eos # (Auto) 0.00 (0-0.5) K/uL Baso # (Auto) 0.00 (0-0.2) K/uL Sodium 140 (136-145) mmol/L Potassium 4.1 (3.5-5.1) mmol/L Chloride 108 H (98-107) mmol/L Carbon Dioxide 28 (21-32) mmol/L Anion Gap 4.0 (3-11) BUN 15 (7-18) mg/dl Creatinine 0.96 (0.6-1.2) mg/dl Est Cr Clr Drug Dosing 78.8 ml/min Est GFR ( Amer) 77.2 Est GFR (Non-Af Amer) 66.6 BUN/Creatinine Ratio 15.9 (10-20) Glucose 126 H (70-99) mg/dl Calcium 8.3 L (8.5-10.1) mg/dl (1) Closed fracture of left hip Encounter type: initial encounter Qualified Code(s): S72.002A - Fracture of unspecified part of neck of left femur, initial encounter for closed fracture
--- NOTE | 2019-11-08 15:39 | Discharge Summary ---
Date of Service November 08, 2019 Admission HPI Per Admitting Provider Hamida Oneal is a 54 year old female who presents to the ER after a fall onto her left side. Stood up from seated around 8:30am, left knee buckled. Multiple prior arthroscopies on left knee with possible planned TKR in the future due to repeated knee swelling. Last drink 4am (Gatorade), last ate yesterday. ER note mentions dizziness although she denies this to me. No prodromal symptoms such as chest pain, shortness of breath, headache or dizziness. Since the fall she has had significant pain in her left groin and elbow. She did not take her usual medication this morning. She is on multiple psychiatric medications but reports her symptoms are currently well controlled. No longer taking the Flexeril. Takes Percocets usually twice a day for her multiple arthralgias. Subsequent XRs in the ER showed left hip and olecranon fractures. She was seen at the same time as Dr Love who plans on Left olecranon ORIF and Left THR later this afternoon. Principal Diagnosis Mechanical fall resulting in broken hip and arm Discharge Exam Constitutional WD/WN, vitals as above Eyes + anicteric sclerae; normal pupil size ENMT external ear and nose normal, oropharynx normal Neck trachea midline, no thyromegaly Respiratory normal respiratory effort, lungs clear to auscultation Cardiovascular RRR, no murmur, no edema Gastrointestinal (Abdomen) normal bowel sounds, soft, nontender, no hepatosplenomegaly Neurologic awake; + does not move all extremities (left elbow and left hip) and not confused Speech / Cognition: normal speech Motor/Sensory: + sensory deficit (Tingling in left 4th/5th fingers (present prior to fall but now worse)); no tremor Psychiatric A+Ox3, euthymic affect Discharge Data Allergies Allergy/AdvReac Type Severity Reaction Status Date / Time pregabalin Allergy Unknown hives/rash, Verified 11/07/19 10:41 pruritus tramadol AdvReac Mild GI upset Verified 11/07/19 10:41 cyclobenzaprine AdvReac Gastrointestinal Verified 11/07/19 10:41 [From Flexeril] Upset Consultations 11/07/19 11:20 ED Decision to Admit Stat 11/07/19 11:36 Consult Orthopedic Surgery Stat 11/07/19 11:39 Consult Anesthesiology Stat 11/07/19 12:29 Consult Case Management - Discharge Planning Routine 11/07/19 20:02 Consult Case Management - Discharge Planning Routine 11/08/19 08:00 Consult Case Management - Discharge Planning Routine Procedures Performed Operation Date: 11/07/19 10:10 Actual Procedures p Left Total Hip Arthroplasty;(Left) - Jacob England MD s Left Olecranon Fracture Open Reduction Internal Fixation(Left) - Jacob England MD Ordered Studies 11/07/19 15:06 FL elbow LT 3V RTN Routine FL fluoroscopy <1hr Routine Hospital Course (1) Fall: No dizziness as per patient. Suspected due to chronic left knee weakness. - Home with home PT/OT. (2) Closed left hip fracture: S/P LTHR POD 1 doing well. 1)Follow [facility] L LE 2)WBAT L LE with yue walker 3)PT/OT 4)Pain meds per medicine service 5)Ice left hip 3-5xs a day for pain and swelling 6)Silverlon dressing to remain on for approximately 2wks. 7)DVT prophylaxis: Lovenox 40mg SQ daily x 3wks and knee high TEDS x 3wks (3) Closed fracture of left olecranon process: (2) Closed fracture of left olecranon process: S/P ORIF L Olecranon fracture POD 1 doing well 1)Keep post-op splint on, clean, and dry 2)Sling at all times other than showering/bathing, dressing, exercise 3)NWBING and no lifting to LUE 4)Keep left arm elevated as much as possible to avoid swelling 5)Ice left elbow 3-5xs a day for pain and swelling 6)Pain meds per medicine service 7)D/C plans with case management: Patient wishes to go home with HHPTS/P LTHR POD 1 doing well (4) History of difficult intubation: Noted history of this. Consult anesthesiology ACDF C5-C7 with iliac crest bone graft: 03/10/14: Grade view 1, Glidescope #3, ETT 7.5 at [facility] (5) History of repair of hiatal hernia: Pantoprazole and cimetidine (6) Arthralgia of multiple sites: Patient takes Percocet due to multiple arthlagias at baseline. No longer takes Flexeril (7) Depression with anxiety: Continue usual medications amitriptyline, Cymbalta, aripiprazole Lorazepam she just takes at night (8) Restless leg syndrome: Gabapentin HS (9) Irritable bowel syndrome: Linzess 290mcg daily (10) Essential tremor: Propranolol 40mg BID (given current BP and HR will hold off on giving this pre-operatively despite her missing a dose this morning) (11) DVT prophylaxis: Discussed with Dr Love, will start on Lovenox tomorrow Total Time Total Time Spent Total Time Spent (In Minutes): 35 Discharge Plan Discharge Items Patient Disposition: Home - Home Health Services Reason For Visit: LEFT HIP/OLECRANON FRACTURE Discharge Diagnosis: Left Elbow Olecranon fracture Left Hip fracture Activity: Resume your previous activity Lifting: Wait until after follow-up appointment Lifting Comment: Nonweight bearing with left arm Bathing: Keep incision dry Bathing Comment: May shower tomorrow Sexual Activity: Wait until after follow-up appointment Exercise/Sports: Wait until after follow-up appointment Weightbearing Comment: WBAT on Left leg: NWB with left arm Non-emergency contact: Primary Care Provider and Surgeon Call non-emergency contact if: your pain is not controlled, your temperature is above 101.5 and your wound has increased drainage Follow-up/Referrals: Jacob England MD [Physician] - 11/22/19 11:30 am (with Dr England at [facility]. Please call [phone] with any questions. ) Jessica Morrow PA-C [Primary Care Provider] - (CALLED PCP OFFICE IT CLOSES AT 1200 ON FRIDAYS. ) Diet: Regular Addtl Attending Provider Instructions: Post-operative Instructions Dear Patient and Family/Friends, Before you are discharged from the hospital, it is important to know what to expect when you get home after surgery. To that end, we have created this sheet of discharge instructions which covers many commonly asked questions. Make sure you go through this sheet in its entirety with your nurse before you are discharged. Please note that we will go over the specifics of your surgery and recovery when you return for your first post-operative visit. Sincerely, Dr. England Medication: 1. Oxycodone 5 mg: take 1-2 tabs by mouth every 4-6 hours as needed for pain control. This will be sent to your pharmacy. 2. Lovenox 40mg SQ: 1 injection daily for 3 weeks post operatively to prevent blood clots. This will be sent to your pharmacy. 3. Tylenol 500mg: take 2 tabs every 6-8 hours for pain control. Please purchase. 4. Diclofenac Sodium 50 mg: take 1 tab twice daily for pain control. This will be sent to your pharmacy. Pain Expect to be in a fair amount of pain after surgery. Remember, our goal is not to eliminate your pain, but to make it tolerable. It is a good idea to stay ahead of your pain by taking the medications you were prescribed once you get home. Typically, the pain starts improving 3-7 days after surgery. You should start weaning off the narcotic pain medication (oxycodone, hydrocodone, hydromorphone, morphine) as soon as your pain improves. Please call our office if your pain is not adequately controlled. Ice Ice your operative site at least 5 times a day for 15-30 minutes at a time. Make sure you have a thin cloth between the ice or cooling unit and your skin to prevent edwards bite. This is especially important if you received a nerve block. Continue icing your operative site for the first 5-7 days after surgery, then as needed. Diet/Nausea/Vomiting Start by drinking clear liquids and eating crackers. If you can tolerate this, then you may resume your normal diet. If you feel nauseated or vomit, take Zofran/ondansetron (if prescribed). Please call our office if you have intractable nausea or vomiting, or, if after hours, you may go to the Emergency Room for help. Constipation Constipation is a common side effect of narcotic pain medication. If you have not had a bowel movement within 2 days after surgery, we recommend purchasing an over the counter laxative such as Milk of Magnesia, Dulcolax, or Miralax from a local pharmacy, and taking it as instructed. Call our clinic if any questions. Sling You may remove your sling or brace for physical therapy, home exercises, and showering. The length of time you will be in your sling and range of motion restrictions depends on what surgery you had; these details will be reviewed at your first post-operative appointment. Weight bearing and Range of Motion. Do not bear any weight through your left upper extremity. Do not lift anything with that arm. We will discuss your weight bearing, range of motion, and lifting restrictions in detail at your first post-operative appointment. Physical therapy You will be given a prescription for outpatient physical therapy or occupational therapy at your first post-operative appointment. Wound care and showering We will inspect your wound at your first post-operative visit, and may do a dressing change at that time. Most patients will be in a water-proof dressing that is removed 14 days after surgery. It is normal to see some dried blood on the dressing. Do not remove your dressing, paper strips or sutures yourself unless you are given permission. Showering is allowed the day after surgery. Do not scrub or remove any dressings. The wound should not be submerged underwater (i.e. in a bathtub or pool) until 4 weeks after surgery GAVIN stockings If you were given white stockings, these are to be worn at all times except to shower (on both legs) for the first 2 weeks after surgery. Driving You may not drive while taking narcotic pain medication or while in a cast, splint, sling or brace. You, the patient, need to make the final determination about when you are safe to drive, however, the earliest you may consider driving after surgery is below: Hand/Wrist/Elbow Surgery: 3 days Shoulder Surgery: 2 weeks Hip,/Knee/Ankle Surgery: 4 weeks Fracture repair: 6 weeks Return to Work Your return to work depends on what surgery was done and what type of work you do. Please bring any paperwork your employer needs completed to your first post -operative visit. Also, bring a description of your job duties, as this helps us to understand what risks you may face at work. Travel Avoid long distance travel (greater than 1 hour) in airplanes and cars for the first 6 weeks after surgery. If you must travel, you need to have a Doppler ultrasound done before you travel to rule out a blood clot in your legs. Follow-up You should have a follow-up appointment already scheduled 1-2 days after surgery. If not, please contact our office to make this appointment before you leave the hospital. When to call the office It is normal to have swelling and bruising in the limb that was operated on. This will improve with time. It is also normal to have fevers for the first 2 days after surgery. Reasons you should call your doctor include: Uncontrolled pain; Nausea, vomiting, or constipation that does not improve with medication; Fevers over 101.5, chills, sweats; Drainage or bleeding from the wound; Foul odor; Spreading areas of redness; Any other concerns Pending Studies at Discharge: No Stand-Alone Forms: My [facility] Medications and DC Order Prescriptions: New oxycodone 5 mg Tablet 5 mg PO Q4H PRN (Reason: pain) Qty: 20 RF: 0 enoxaparin 40 mg/0.4 mL Syringe 40 mg subcut DAILY Qty: 21 RF: 0 diclofenac sodium 50 mg tablet,delayed release (DR/EC) 50 mg PO Q12H PRN (Reason: pain) Qty: 30 RF: 0 Continued amitriptyline 100 mg tablet 100 mg PO HS RF: 0 lorazepam 0.5 mg tablet 0.5 mg PO BID RF: 0 propranolol 40 mg tablet 40 mg PO BID RF: 0 pantoprazole [Protonix] 40 mg tablet,delayed release (DR/EC) 40 mg PO DAILY Qty: 30 RF: 2 promethazine-codeine 6.25-10 mg/5 mL syrup 5 ml PO Q6H PRN (Reason: cough) Qty: 240 RF: 0 aripiprazole [Abilify] 5 mg tablet 5 mg PO DAILY RF: 0 oxycodone-acetaminophen [Percocet] 10-325 mg Tablet 1 tab PO BID PRN (Reason: Pain) RF: 0 gabapentin 300 mg Capsule 300 mg PO HS RF: 0 duloxetine [Cymbalta] 60 mg Capsule,Delayed Release(Dr/Ec) 60 mg PO BID RF: 0 ondansetron HCl [Zofran] 4 mg tablet 4 mg PO Q6H PRN (Reason: nausea and vomiting) Qty: 7 RF: 0 cyclobenzaprine 10 mg tablet 10 mg PO TID RF: 0 atorvastatin 80 mg tablet 80 mg PO DAILY RF: 0 cimetidine 200 mg tablet 400 mg PO HS RF: 0 Linzess 290 mcg capsule 290 mcg PO DAILY RF: 0 Discharge Orders: Discharge Order (Routine); Ordered 11/08/19 Ordered By: Paresh Morrow Admission Data Admit Date/Time: 11/07/19 14:09 Attending Provider: Jacob England Admit Provider: Jacob England Primary Care Provider: Jessica Morrow Other Providers: Jacob England ; Juan Carlos Pappas ; Paresh Morrow ; [facility] Coding Level of Care Code D/C Day Management >30 mins Diagnoses Fall W19.XXXA Encounter type: initial encounter Closed left hip fracture S72.002A Closed fracture of left olecranon process S52.022A History of difficult intubation Z91.89 History of repair of hiatal hernia Z98.890; Z87.19 Arthralgia of multiple sites M25.50 Depression with anxiety F41.8 Restless leg syndrome G25.81 Irritable bowel syndrome K58.9 Essential tremor G25.0 DVT prophylaxis Z29.9
[2019-11-08] MEDS: OXYCODONE HCL IR 5 MG TAB (IMMEDIATE RELEASE) PO PRN (16:34)
== END 2019-11-08 18:28 | disposition home health service (06) | DRG 470 ==
LOC: ED 09:31 → OR 14:08 → 3E 14:09

== ENCOUNTER 2020-04-05 14:22 | Inpatient (IN) ==
[2020-04-05] MEDS ORDERED: ASPIRIN CHEW 324 MG PO STA (14:39)
[2020-04-05] MEDS ORDERED: NITROGLYCERIN 2% OINTMENT 30GM TUBE EXT STA ×2 (14:39→14:45)
--- NOTE | 2020-04-05 14:43 | Emergency Department Note ---
Impression & Plan Precordial chest pain, Acute MS, SOB (shortness of breath) ED Provider Note NAME: DHRUV HERNANDEZ AGE: 54 SEX: F : 1965 ARRIVES VIA: Walk-In INFORMANT: [Patient] ED PROVIDER(S): [Kraig Medley MD] CHIEF COMPLAINT: Chest pain HISTORY OF PRESENT ILLNESS: The patient is a 54-year-old female presents to the ER with about 3 days of chest pain. The pain first began in the area of the right shoulder and chest while she was raking leaves. She was sweaty she was short of breath. No nausea. The pain was a 10/10. The patient has had less severe, waxing and waning pain since that timeframe. Today was a pretty bad day. She has pain with exertion and movement, the pain seems to go away when she rests. The patient has no history of coronary disease. She does smoke and has high cholesterol. She has a strong family history of heart disease. The patient states that she does think movement of the right shoulder worsens her pain at times. She denies any recent trauma or injury to the right chest or right shoulder. REVIEW OF SYSTEMS: See HPI for pertinent positives and negatives. A total of ten systems were reviewed and were otherwise negative. PMHx/PSHx: See Below SOCIAL HISTORY: See Below. PHYSICAL EXAM: GENERAL: Patient is in mild distress from pain. HEENT: No acute trauma, normocephalic atraumatic, mucous membranes moist, no nasal congestion, no scleral icterus. NECK: No stridor, no adenopathy, no meningismus, trachea is midline. LUNGS: Clear to auscultation bilaterally, no wheeze, no rhonchi, breath sounds equal. HEART: Without murmurs gallops or rubs, regular rate and rhythm. Chest: Mildly tender right anterior chest wall. ABDOMEN: Soft, nontender, bowel sounds positive, no hernias, no peritonitis. EXTREMITIES: No cyanosis or edema, full range of motion of all the joints without pain or difficulty, no signs for acute trauma. NEUROLOGIC: Oriented x 3, no acute motor or sensory deficits, no focal weakness. SKIN: No rash, no jaundice, no diaphoresis. DIFFERENTIAL DIAGNOSIS: Cardiac ischemia, aortic dissection, pulmonary embolism, pneumothorax, pneumonia, pericarditis, myocarditis, esophageal rupture, GERD, cholecystitis, pancreatitis, musculoskeletal, as well as other pathologies. EMERGENCY DEPARTMENT COURSE/PROCEDURES: ECG: Indication was chest pain. The ECG shows a normal sinus rhythm with a rate of 97. There is a Q wave in the septal leads. There is ST elevation in the anterior leads with some ST depression laterally. The QTc is 447. Compared to previous EKGs, significant changes have occurred. Continuous Cardiac Monitoring: An order was placed for continuous cardiac monitoring. The monitor shows a rate of 90 with normal sinus rhythm. Critical Care Note: I have personally spent 35 minutes of critical care time in the direct management of this patient. This includes bedside care, i nterpretation of diagnostic studies, and testing, discussion with consultants, patient, and family members, and other required patient management activities. This 35 minutes is in excess of all separately billable procedures. MEDICAL DECISION MAKING: There was a mild leukocytosis, this could be consistent with infection or possibly with the stress of today's presentation. No anemia. There was a normal platelet count. No coagulopathy. No significant electrolyte abnormality or kidney failure. No worrisome liver enzyme elevation. The patient did not have any evidence for pancreatitis. ECG showed what appears to be an anterior MS with some ST elevation anteriorly and some ST depression laterally. There were some Q waves along the septal leads. This EKG was markedly changed compared to her previous EKG. Cardiac enzyme testing x1 did show an elevation. Coronavirus testing returned negative. Chest film did not show pneumonia or CHF. No mediastinal widening. The patient was rapidly assessed given her presentation. A heart alert was called. She was given oral aspirin, a 500 cc saline bolus, she was given 1 inch of Nitropaste. I did speak to the cardiac interventionalist on-call. At his request, the patient received a dose of oral Brilinta and a dose of IV heparin. The patient appears to have suffered an MS, I suspect the initial heart injury occurred a few days ago when her symptoms began. She is having ongoing pain though and thus a heart alert was called. Patient was taken to the cardiac catheterization lab. I did speak to the patient about my findings concerns. The on-call hospitalist was consulted. Past Med/Surg History Medical History Anxiety Degenerative disc disease cervical Depression Essential tremor occasional hands + head- on propranolol Fibromyalgia GERD (gastroesophageal reflux disease) occasional Hiatal hernia History of difficult intubation ACDF C5-C7 with iliac crest bone graft: 03/10/14: Grade view 1, Glidescope #3, ETT 7.5 at [facility] Hyperlipidemia Migraine hx Osteoarthritis Temporomandibular joint disorder left side clicking; no locking Surgical History H/O hand surgery X [id number] FOR FRACTURE/NON BONE HEALING -- current scabbing History of arthroscopy LEFT KNEE MENISCUS REPAIR History of bilateral tubal ligation History of colonoscopy History of elbow surgery TENDONS-LEFT History of esophagogastroduodenoscopy (EGD) History of herniorrhaphy X 2 History of open reduction and internal fixation (ORIF) procedure left elbow (11/07/2019) History of repair of hiatal hernia Laparoscopic Hiatal Hernia Repair with 360 degree Fundoplication,- Tray Marion DO 04/04/19 History of repair of rotator cuff RIGHT History of tooth extraction WISDOM TEETH History of total hip arthroplasty left (11/07/2019) S/P cervical spinal fusion "2 levels" full rom Family History Mother Family history of diabetes mellitus Other No family history of adverse response to anesthesia Social History Smoking Status: Current every day smoker Tobacco Type: Cigarettes Cigarettes Per Day: 10; Second Hand Exposure: No; Hx Alcohol Use: No Hx Substance Use: No Preferred Language: Portuguese Communication Ability: Effective Ip Architect Required: No Beliefs That Will Affect Care: None Current Living Situation: Spouse Feels Safe at Home: Yes Assistive Devices: None Allergies Allergies Allergy/AdvReac Type Severity Reaction Status Date / Time pregabalin Allergy Unknown hives/rash, Verified 12/23/19 06:21 pruritus cyclobenzaprine AdvReac Mild Gastrointestinal Verified 12/23/19 06:21 [From Flexeril] Upset tramadol AdvReac Mild GI upset Verified 12/23/19 06:21 Home Meds Home Medications Medication Instructions Recorded Confirmed amitriptyline 100 mg tablet 100 mg PO HS 12/31/18 12/23/19 lorazepam 0.5 mg tablet 0.5 mg PO BID PRN 12/31/18 12/23/19 propranolol 40 mg tablet 40 mg PO BID 12/31/18 12/23/19 duloxetine [Cymbalta] 60 mg PO BID 03/05/19 12/23/19 gabapentin 300 mg PO HS 03/05/19 12/23/19 Linzess 290 mcg PO DAILY 11/07/19 12/23/19 atorvastatin 80 mg PO HS 11/07/19 12/23/19 cimetidine [Tagamet HB] 400 mg PO HS 11/07/19 12/23/19 cyclobenzaprine 10 mg PO TID 11/07/19 12/23/19 aripiprazole 10 mg PO HS 12/10/19 12/23/19 aspirin [Aspirin Low Dose] 81 mg PO DAILY 12/10/19 12/23/19 Previous Rx's Medication Instructions Recorded ondansetron HCl [Zofran] 4 mg PO Q6H PRN #7 tab 04/04/19 diclofenac sodium 50 mg PO Q12H PRN #30 tab 11/08/19 oxycodone 5 mg PO Q4H PRN #20 tab 11/08/19 pantoprazole 40 mg tablet,delayed See Rx Instructions .ROUTE 12/03/19 release .COMPLEX #30 tablet Results & Data (ED) Vital Signs Vital Signs - 24 hr 04/05/20 14:29 04/05/20 14:45 04/05/20 14:48 Pulse Rate 104 H 92 H 93 H Pulse Rate from SpO2 Sensor 92 H 92 H Respiratory Rate 20 21 21 Blood Pressure 133/90 105/77 Blood Pressure Mean 104 81 Pulse Oximetry 100 100 97 Oxygen Delivery Method Room Air Sepsis Recent Fever Within 48 Hours No Sepsis New/Unexplained Change in Mental Status N/A Sepsis Action Taken by Nursing No Action Required 04/05/20 14:50 04/05/20 15:00 04/05/20 15:01 Pulse Rate 89 91 H Pulse Rate from SpO2 Sensor 90 91 H Respiratory Rate 17 18 Blood Pressure 99/68 L Blood Pressure Mean 77 Pulse Oximetry 99 99 Oxygen Delivery Method Room Air Sepsis Recent Fever Within 48 Hours Sepsis New/Unexplained Change in Mental Status Sepsis Action Taken by Nursing 04/05/20 15:03 04/05/20 15:14 Pulse Rate Pulse Rate from SpO2 Sensor Respiratory Rate Blood Pressure Blood Pressure Mean Pulse Oximetry Oxygen Delivery Method Room Air Room Air Sepsis Recent Fever Within 48 Hours Sepsis New/Unexplained Change in Mental Status Sepsis Action Taken by Prison Medications Current Medication List: was personally reviewed by me Laboratory Data Attestation: I reviewed the patient's lab results. Result diagrams: 04/05/20 17:23 04/05/20 14:41 Lab Results 04/05/20 04/05/20 04/05/20 Range/Units 14:41 14:41 14:41 WBC 11.71 H (4.8-10.8) K/uL RBC 4.21 (4.2-5.4) M/uL Hgb 13.6 (12.0-16.0) g/dL POC Hgb (12.0-16.0) g/dl Hct 40.9 (37-47) % POC Hct (37-47) % MCV 97.1 (80-100) fL MCH 32.3 (25-34) pg MCHC 33.3 (32-36) g/dL RDW Std Deviation 51.8 H (36.4-46.3) fL RDW Coeff of Tereza 14.6 H (11.5-14.5) % Plt Count 357 (130-400) K/uL MPV 9.4 (7.4-10.4) fL Immature Gran % (Auto) 0.2 % Neut % (Auto) 51.5 % Lymph % (Auto) 39.8 % [place] % (Auto) 5.9 % Eos % (Auto) 2.5 % Baso % (Auto) 0.1 % Neut # (Auto) 6.04 (1.4-6.5) K/uL Lymph # (Auto) 4.66 H (1.2-3.4) K/uL [place] # (Auto) 0.69 H (0.11-0.59) K/uL Eos # (Auto) 0.29 (0-0.5) K/uL Baso # (Auto) 0.01 (0-0.2) K/uL Immature Gran # (Auto) 0.02 (0.00-0.02) K/uL PT 10.3 (9.0-12.0) Seconds INR 1.0 (0.9-1.1) APTT 27.0 (21.0-31.0) Seconds PTT Ratio 1.0 Activ Coag Time Kaolin (94-140) SECONDS POC Sodium (135-144) mmol/L Sodium 142 (136-145) mmol/L POC Potassium (3.3-5.0) mmol/L Potassium 3.7 (3.5-5.1) mmol/L POC Chloride (101-112) mmol/L Chloride 108 H (98-107) mmol/L Carbon Dioxide 27 (21-32) mmol/L POC Total CO2 (24-31) mmol/L Anion Gap 6.0 (3-11) POC Anion Gap (16-25) mmol/L POC BUN (7-18) mg/dl BUN 10 (7-18) mg/dl Creatinine 1.30 H (0.6-1.2) mg/dl POC Creatinine (0.6-1.3) mg/dl Est Cr Clr Drug Dosing Not Reportable Est GFR ( Amer) 53.5 Est GFR (Non-Af Amer) 46.1 BUN/Creatinine Ratio 7.9 L (10-20) Glucose 139 H (70-99) mg/dl POC Glucose (other) (70-99) mg/dl Calcium 9.3 (8.5-10.1) mg/dl POC Ioniz Calcium Aparna (1.12-1.32) mmol/l Magnesium 2.0 (1.8-2.4) mg/dl Total Bilirubin 0.3 (0.2-1) mg/dl AST 21 (15-37) U/L ALT 23 (12-78) U/L Alkaline Phosphatase 142 H (45-117) U/L Troponin I 0.242 H* (0-0.045) ng/ml Total Protein 7.8 (6.4-8.2) gm/dl Albumin 3.9 (3.4-5.0) gm/dl Globulin 3.9 (2.5-4.0) gm/dl Albumin/Globulin Ratio 1.0 (0.9-2) Lipase 57 L (73-393) U/L COVID-19 Eval Order SARS-CoV-2, RNA, NAAT (NEGATIVE) 04/05/20 04/05/20 04/05/20 Range/Units 14:55 14:55 14:59 WBC (4.8-10.8) K/uL RBC (4.2-5.4) M/uL Hgb (12.0-16.0) g/dL POC Hgb 14.6 (12.0-16.0) g/dl Hct (37-47) % POC Hct 43 (37-47) % MCV (80-100) fL MCH (25-34) pg MCHC (32-36) g/dL RDW Std Deviation (36.4-46.3) fL RDW Coeff of Tereza (11.5-14.5) % Plt Count (130-400) K/uL MPV (7.4-10.4) fL Immature Gran % (Auto) % Neut % (Auto) % Lymph % (Auto) % [place] % (Auto) % Eos % (Auto) % Baso % (Auto) % Neut # (Auto) (1.4-6.5) K/uL Lymph # (Auto) (1.2-3.4) K/uL [place] # (Auto) (0.11-0.59) K/uL Eos # (Auto) (0-0.5) K/uL Baso # (Auto) (0-0.2) K/uL Immature Gran # (Auto) (0.00-0.02) K/uL PT (9.0-12.0) Seconds INR (0.9-1.1) APTT (21.0-31.0) Seconds PTT Ratio Activ Coag Time Kaolin (94-140) SECONDS POC Sodium 142 (135-144) mmol/L Sodium (136-145) mmol/L POC Potassium 3.6 (3.3-5.0) mmol/L Potassium (3.5-5.1) mmol/L POC Chloride 105 (101-112) mmol/L Chloride (98-107) mmol/L Carbon Dioxide (21-32) mmol/L POC Total CO2 23 L (24-31) mmol/L Anion Gap (3-11) POC Anion Gap 19.0 (16-25) mmol/L POC BUN 11 (7-18) mg/dl BUN (7-18) mg/dl Creatinine (0.6-1.2) mg/dl POC Creatinine 1.2 (0.6-1.3) mg/dl Est Cr Clr Drug Dosing Est GFR ( Amer) Est GFR (Non-Af Amer) BUN/Creatinine Ratio (10-20) Glucose (70-99) mg/dl POC Glucose (other) 136 H (70-99) mg/dl Calcium (8.5-10.1) mg/dl POC Ioniz Calcium Aparna 1.26 (1.12-1.32) mmol/l Magnesium (1.8-2.4) mg/dl Total Bilirubin (0.2-1) mg/dl AST (15-37) U/L ALT (12-78) U/L Alkaline Phosphatase (45-117) U/L Troponin I (0-0.045) ng/ml Total Protein (6.4-8.2) gm/dl Albumin (3.4-5.0) gm/dl Globulin (2.5-4.0) gm/dl Albumin/Globulin Ratio (0.9-2) Lipase (73-393) U/L COVID-19 Eval [facility] SARS-CoV-2, RNA, NAAT NEGATIVE (NEGATIVE) 04/05/20 Range/Units 15:46 WBC (4.8-10.8) K/uL RBC (4.2-5.4) M/uL Hgb (12.0-16.0) g/dL POC Hgb (12.0-16.0) g/dl Hct (37-47) % POC Hct (37-47) % MCV (80-100) fL MCH (25-34) pg MCHC (32-36) g/dL RDW Std Deviation (36.4-46.3) fL RDW Coeff of Tereza (11.5-14.5) % Plt Count (130-400) K/uL MPV (7.4-10.4) fL Immature Gran % (Auto) % Neut % (Auto) % Lymph % (Auto) % [place] % (Auto) % Eos % (Auto) % Baso % (Auto) % Neut # (Auto) (1.4-6.5) K/uL Lymph # (Auto) (1.2-3.4) K/uL [place] # (Auto) (0.11-0.59) K/uL Eos # (Auto) (0-0.5) K/uL Baso # (Auto) (0-0.2) K/uL Immature Gran # (Auto) (0.00-0.02) K/uL PT (9.0-12.0) Seconds INR (0.9-1.1) APTT (21.0-31.0) Seconds PTT Ratio Activ Coag Time Kaolin 478 H (94-140) SECONDS POC Sodium (135-144) mmol/L Sodium (136-145) mmol/L POC Potassium (3.3-5.0) mmol/L Potassium (3.5-5.1) mmol/L POC Chloride (101-112) mmol/L Chloride (98-107) mmol/L Carbon Dioxide (21-32) mmol/L POC Total CO2 (24-31) mmol/L Anion Gap (3-11) POC Anion Gap (16-25) mmol/L POC BUN (7-18) mg/dl BUN (7-18) mg/dl Creatinine (0.6-1.2) mg/dl POC Creatinine (0.6-1.3) mg/dl Est Cr Clr Drug Dosing Est GFR ( Amer) Est GFR (Non-Af Amer) BUN/Creatinine Ratio (10-20) Glucose (70-99) mg/dl POC Glucose (other) (70-99) mg/dl Calcium (8.5-10.1) mg/dl POC Ioniz Calcium Aparna (1.12-1.32) mmol/l Magnesium (1.8-2.4) mg/dl Total Bilirubin (0.2-1) mg/dl AST (15-37) U/L ALT (12-78) U/L Alkaline Phosphatase (45-117) U/L Troponin I (0-0.045) ng/ml Total Protein (6.4-8.2) gm/dl Albumin (3.4-5.0) gm/dl Globulin (2.5-4.0) gm/dl Albumin/Globulin Ratio (0.9-2) Lipase (73-393) U/L COVID-19 Eval Order SARS-CoV-2, RNA, NAAT (NEGATIVE) Administered Medications Nitroglycerin (Nitroglycerin Sl 0.4 Mg/Tab Tab) 0.4 mg SL PRN PRN PRN Reason: Chest Pain Stop: 05/05/20 15:52 Last Admin: 04/05/20 17:23 Dose: 0.4 mg Documented by: [id number] Discontinued Medications Aspirin (Aspirin Chew 324 Mg) 324 mg PO NOW STA Stop: 04/05/20 14:40 Last Admin: 04/05/20 14:45 Dose: 324 mg Documented by: [id number] Bivalirudin (Bivalirudin 250 Mg Vial (Armament Mechanic Only)) Confirm Administered Dose 250 mg .ROUTE .STK-MED ONE Stop: 04/05/20 15:22 Last Admin: 04/05/20 16:00 Dose: 250 mg Documented by: [id number] Fentanyl Citrate (Fentanyl Citrate 100 Mcg/2 Ml Vial) Confirm Administered Dose 100 mcg .ROUTE .STK-MED ONE Stop: 04/05/20 15:00 Last Increment: 04/05/20 15:56 Dose: 25 mcg Documented by: [id number] Heparin Sodium (Porcine) (Heparin Sod (Porcine) 1000 Unit/Ml 10 Ml Vial) 5,000 units IV ONE ONE Stop: 04/05/20 14:50 Last Admin: 04/05/20 14:53 Dose: 5,000 units Documented by: [id number] Cosigned by: [id number] Heparin Sodium (Porcine) (Heparin (Porcine) 1000 Unit/Ml 10 Ml (Armament Mechanic Use Only)) Confirm Administered Dose 10,000 units .ROUTE .STK-MED ONE Stop: 04/05/20 15:00 Last Admin: 04/05/20 16:01 Dose: 10,000 units Documented by: [id number] Heparin Sodium/Sodium Chloride (Heparin In Nss Infusion 1000 Unit/500 Ml (2 U/Ml) Bag) Confirm Administered Dose 3,000 units IV .STK-MED ONE Stop: 04/05/20 15:00 Last Admin: 04/05/20 15:57 Dose: 3,000 units Documented by: [id number] Sodium Chloride (Nss) 500 mls @ 999 mls/hr IV .Q31M ALECIA Stop: 04/05/20 15:15 Last Infusion: 04/05/20 16:52 Dose: 0 mls/hr Documented by: [id number] Admin: 04/05/20 14:49 Dose: 999 mls/hr Documented by: [id number] Midazolam HCl (Midazolam Hcl 1 Mg/Ml 2ml Vial) Confirm Administered Dose 2 mg .ROUTE .STK-MED ONE Stop: 04/05/20 15:00 Last Increment: 04/05/20 15:57 Dose: 1 mg Documented by: [id number] Morphine Sulfate (Morphine Sulfate 2 Mg/Ml Carp) 2 mg IV Q4H STA Stop: 04/05/20 17:32 Last Admin: 04/05/20 17:52 Dose: 2 mg Documented by: [id number] Nicardipine HCl (Nicardipine Hcl Inj 2.5 Mg/Ml 10 Ml Amp) Confirm Administered Dose 25 mg .ROUTE .STK-MED ONE Stop: 04/05/20 15:00 Last Admin: 04/05/20 15:56 Dose: 25 mg Documented by: [id number] Nitroglycerin (Nitroglycerin 2% Ointment 30gm Tube) 2 inch EXT NOW STA Stop: 04/05/20 14:40 Last Admin: 04/05/20 14:46 Dose: 1 inch Documented by: [id number] Nitroglycerin (Nitroglycerin 2% Ointment 30gm Tube) 1 inch EXT NOW STA Stop: 04/05/20 14:46 Last Admin: 04/05/20 14:50 Dose: Not Given Documented by: [id number] Nitroglycerin/Dextrose (Nitroglycerin/D5w 100mcg/Ml 20ml Syr) Confirm Administered Dose 2,000 mcg .ROUTE .STK-MED ONE Stop: 04/05/20 15:01 Last Admin: 04/05/20 16:00 Dose: 2,000 mcg Documented by: [id number] Ticagrelor (Ticagrelor 90 Mg Tab) 180 mg PO ONE ONE Stop: 04/05/20 14:50 Last Admin: 04/05/20 14:53 Dose: 180 mg Documented by: [id number] Imaging Data Radiologist's Impression: XR chest 1V portable CLINICAL HISTORY: Atypical chest pain. COMPARISON STUDY: Chest radiograph November 07, 2019. FINDINGS: Lung volumes are normal. Lungs are clear. There is no pneumothorax or pleural effusion. Cardiac size is normal. Mediastinal contours are normal. There is no evidence for pulmonary edema. Anterior cervical spine fusion is partially imaged. IMPRESSION: No acute cardiopulmonary findings. Discharge Plan Visit Data Chief Complaint: Chest Pain Stated Complaint: CHEST PAIN ED Provider: Kraig Medley Discharge Problem: Precordial chest pain, Acute MS, SOB (shortness of breath) Patient Disposition: Admitted As Inpatient Condition: Fair Discharge Instructions Interventions: ED Discharge Assessment Last Done: 04/05/20 15:11 Discharge Problem: Acute MS Qualifiers: Myocardial infarction type: ST elevation myocardial infarction Involved coronary artery: unspecified coronary artery Qualified Code(s): I21.3 - ST elevation (STEMI) myocardial infarction of unspecified site
[2020-04-05] MEDS ORDERED: SODIUM CHLORIDE 0.9% 500 ML IV SCH (14:45)
[2020-04-05 14:49] LABS: Basophils # (auto) 0.01 K/uL (0-0.2); Basophils % (auto) 0.1 %; Eosinophils # (auto) 0.29 K/uL (0-0.5); Eosinophils % (auto) 2.5 %; Hematocrit (blood only) 40.9 % (37-47); Hemoglobin 13.6 g/dL (12.0-16.0); Immature Granulocytes # (auto) 0.02 K/uL (0.00-0.02); Immature Granulocytes % (auto) 0.2 %; Lymphocytes # (auto) 4.66 K/uL (1.2-3.4); Lymphocytes % (auto) 39.8 %; Mean Corpuscular Hemoglobin 32.3 pg (25-34); Mean Corpuscular Hgb Conc 33.3 g/dL (32-36); Mean Corpuscular Volume 97.1 fL (80-100); Mean Platelet Volume 9.4 fL (7.4-10.4); Monocytes # (auto) 0.69 K/uL (0.11-0.59); Monocytes % (auto) 5.9 %; Neutrophils # (auto) 6.04 K/uL (1.4-6.5); Neutrophils % (auto) 51.5 %; Platelet Count 357 K/uL (130-400); RDW Coefficient of Variation 14.6 % (11.5-14.5); RDW Standard Deviation 51.8 fL (36.4-46.3); Red Blood Count 4.21 M/uL (4.2-5.4); White Blood Count 11.71 K/uL (4.8-10.8)
[2020-04-05] MEDS ORDERED: HEPARIN SOD (PORCINE) 1000 UNIT/ML 10 ML VIAL IV ONE (14:49)
[2020-04-05] MEDS ORDERED: TICAGRELOR 90 MG TAB PO ONE (14:49)
--- NOTE | 2020-04-05 14:54 | XRay Report ---
XR chest 1V portable CLINICAL HISTORY: Atypical chest pain. COMPARISON STUDY: Chest radiograph November 07, 2019. FINDINGS: Lung volumes are normal. Lungs are clear. There is no pneumothorax or pleural effusion. Car diac size is normal. Mediastinal contours are normal. There is no evidence for pulmonary edema. Anter ior cervical spine fusion is partially imaged. IMPRESSION: No acute cardiopulmonary findings. ACT 112: Negative or not required by law. Electronically signed by: Fredy Bhatti M.D. 04/05/2020 2:52 PM
[2020-04-05] MEDS ORDERED: niCARdipine HCL INJ 2.5 MG/ML 10 ML AMP ONE (14:59)
[2020-04-05] MEDS ORDERED: MIDAZOLAM HCL 1 MG/ML 2ML VIAL ONE (14:59)
[2020-04-05] MEDS ORDERED: fentaNYL citrate 100 MCG/2 ML VIAL ONE (14:59)
[2020-04-05] MEDS ORDERED: HEPARIN (PORCINE) 1000 UNIT/ML 10 ML (CATH LAB USE ONLY) ONE (14:59)
[2020-04-05 15:00] LABS: Prothrombin Time 10.3 Seconds (9.0-12.0)
[2020-04-05] MEDS ORDERED: NITROGLYCERIN/D5W 100MCG/ML 20ML SYR ONE (15:00)
[2020-04-05 15:07] LABS: Alanine Aminotransferase 23 U/L (12-78); Albumin Level 3.9 gm/dl (3.4-5.0); Aspartate Aminotransferase 21 U/L (15-37); BUN Creatinine Ratio 7.9 (10-20); Blood Urea Nitrogen 10 mg/dl (7-18); Calcium 9.3 mg/dl (8.5-10.1); Carbon Dioxide 27 mmol/L (21-32); Chloride 108 mmol/L (98-107); Est GFR (African American) 53.5; Est GFR (Non-African American) 46.1; Glucose 139 mg/dl (70-99); Lipase 57 U/L (73-393); Potassium 3.7 mmol/L (3.5-5.1); Sodium 142 mmol/L (136-145)
--- NOTE | 2020-04-05 15:10 | Pre Anesthesia Assessment ---
Date of Service April 05, 2020 Pre Sedation Assessment Vital Signs Pulse Resp BP Pulse Ox 04/05/20 15:01 91 H 18 99/68 L 99 04/05/20 15:00 89 17 99 04/05/20 14:48 93 H 21 105/77 97 04/05/20 14:45 92 H 21 100 04/05/20 14:29 104 H 20 133/90 100 Cardiovascular RRR, no murmur, no edema Respiratory normal respiratory effort, lungs clear to auscultation Pre-Sedation Airway Assessment Smoking Status: Current every day smoker Mallampati Class: II ASA: ASA2 Procedure Planning Contraindications for Sedation: none Current Medications Reviewed: Yes Notes The planned sedation has been discussed with the patient. Informed Consent was obtained. I have identified the patient, determined the appropriateness of sedation and have assessed the patient immediately prior to the procedure. All medicine(s) and interventions are by my order.
[2020-04-05 15:12] LABS: iSTAT Creatinine 1.2 mg/dl (0.6-1.3); iSTAT Hemoglobin 14.6 g/dl (12.0-16.0); iSTAT Ionized Calcium 1.26 mmol/l (1.12-1.32); iSTAT Potassium 3.6 mmol/L (3.3-5.0)
[2020-04-05 15:17] LABS: Alkaline Phosphatase 142 U/L (45-117); Bilirubin,Total 0.3 mg/dl (0.2-1); Globulin 3.9 gm/dl (2.5-4.0); Total Protein 7.8 gm/dl (6.4-8.2); Troponin I 0.242 ng/ml (0-0.045)
[2020-04-05] MEDS ORDERED: BIVALIRUDIN 250 MG VIAL (CATH LAB ONLY) ONE (15:21)
--- NOTE | 2020-04-05 15:47 | Post Anesthesia Assessment ---
Date of Service April 05, 2020 Post Sedation Assessment Vital Signs Pulse Resp BP Pulse Ox 04/05/20 15:01 91 H 18 99/68 L 99 04/05/20 15:00 89 17 99 04/05/20 14:48 93 H 21 105/77 97 04/05/20 14:45 92 H 21 100 04/05/20 14:29 104 H 20 133/90 100 Recovery Score Activity: Moves 4 extremities Respiration: Deep Breath/Cough Consciousness: Fully Awake Discharge Sedation Level of Care: Phase I Post Sedation Plan On clinical assessment, the patient appears to have tolerated the sedation without complications. Patient is recovering as anticipated. Patient will continue to be monitored by nursing and may be discharged when sedation discharge criteria are met per below protocol. Upon Completions of procedure up to 15 minutes continue every 5 minute vital signs and the P.A.R. score; then discharge to a Phase I or Fast Track to Phase II per the following guidelines: * Discharge Patient to appropriate Phase II area if PAR is 8 or greater or return to pre- procedure baseline. The post - procedure orders will be as directed. * If PAR score is less than 8 or not return to pre-procedure baseline then patient will follow Phase I monitoring till PAR is reached for Phase II. The Phase I may be done in procedure room or may call to secure a Phase I area. * If naloxone or flumazenil are used for reversal, hold in Phase I for continued monitoring from when last reversal dose was given for a minimum of 60 minutes or longer pending the nurse and/or physician discretion of patient condition before discharge to Phase II. Please call the Sedation Physician to re-evaluate and complete post-note for discharge to Phase II area. Do NOT discharge from procedure sedation or Phase 1 until post- sedation evaluation note is complete by procedure /sedation MD Sedation Discharge Instructions to be given to the patient at discharge to home.
--- NOTE | 2020-04-05 15:50 | Post Operative Brief Note ---
Cardiology Brief Post Op Date of Surgery April 05, 2020 Pre & Post Diagnosis Operation Date: 04/05/20 14:50 54-year-old female, prior history of hyperlipidemia and tobacco use, presented to the emergency room with 3 days of stuttering chest discomfort. EKG showed evidence of anterior wall myocardial injury, emergency cardiac evaluation revealed severe proximal greater than 95% stenosis along with evidence of lucency suggesting thrombus in the proximal/mid LAD. PCI performed of proximal LAD and mid LAD with placement of 2 overlapping 3 mm x 23 mm and 3.5 mm x 23 mm Xience drug-eluting stent, postdilated with 3.5 mm NC balloon at nominal pressures. 0% residual stenosis along with SOTO-3 flow. She also has 100% occlusion of right coronary artery, appears chronic total occlusion with evidence of good collaterals from the left circulation. She remains pain-free, no significant symptoms reported, chest pain-free after the procedure. She received aspirin, Brilinta along with Angiomax for the procedure. Continue with intensive risk factor modification, initiate low-dose beta- blockers, CATHERINE inhibitors and high intensity statins as tolerated. Procedure Coronary angiography along with PCI of proximal/mid left into descending artery. Salon Manager Jaspreet Cristobal MD Dispatcher Service Or Work none Estimated Blood Loss 10 Findings See Below
[2020-04-05] MEDS ORDERED: ONDANSETRON INJ 2 MG/ML 2 ML VIAL IV PRN (15:53)
[2020-04-05] MEDS ORDERED: ATROPINE SULFATE 0.1 MG/ML 10ML SYR IV PRN (15:53)
[2020-04-05] MEDS ORDERED: ACETAMINOPHEN 325 MG TAB PO PRN (15:53)
--- NOTE | 2020-04-05 15:53 | Cardiac Catheterization ---
ACC Data: Home Builder Cardiac Status Clinical evaluation leading to the procedure CAD Presenation: STEMI Diagnostic Physicians Name: Jaspreet Cristobal MD Closure Device Recommendations: Medical Therapy and/or Counseling and PCI without planned CABG Cardiac Cath Procedure Full Procedure Date April 05, 2020 Pre-Procedure Diagnosis Pre-Procedure Diagnosis: STEMI AUC Score AUC Score: 9 Post-Procedure Diagnosis Post-Procedure Diagnosis: Severe CAD and Successful PCI Procedure(s) Performed Procedure(s) Performed: Coronary Angiography and Drug Eluting Stent Tire Beader Maker Jaspreet Cristobal MD Estimated Blood Loss Estimated Blood Loss: None Summary of Findings Operation Date: 04/05/20 14:50 54-year-old female, prior history of hyperlipidemia and tobacco use, presented to the emergency room with 3 days of stuttering chest discomfort. EKG showed evidence of anterior wall myocardial injury, emergency cardiac evaluation revealed severe proximal greater than 95% stenosis along with evidence of lucency suggesting thrombus in the proximal/mid LAD. PCI performed of proximal LAD and mid LAD with placement of 2 overlapping 3 mm x 23 mm and 3.5 mm x 23 mm Xience drug-eluting stent, postdilated with 3.5 mm NC balloon at nominal pressures. 0% residual stenosis along with SOTO-3 flow. She also has 100% occlusion of right coronary artery, appears chronic total occlusion with evidence of good collaterals from the left circulation. She remains pain-free, no significant symptoms reported, chest pain-free after the procedure. She received aspirin, Brilinta along with Angiomax for the procedure. Continue with intensive risk factor modification, initiate low-dose beta- blockers, CATHERINE inhibitors and high intensity statins as tolerated. Hemodynamics Rest Ao:: 123/66 Final Ao: 127/81 LV: not done Recommendations Recommendations: Medical Therapy and/or Counseling and PCI without planned CABG Radiation Exposure (mGy) 1034 mGy Contrast (mls) 135 I attest to the content of the Intraoperative Record and any orders documented therein. Any exceptions are noted below. PG Care Time/CCT Total # of Minutes Spent Total Time Spent with Patient: Total time spent is greater than 50% in coordination of care (as documented) at patient's floor/unit and/or counseling patient:
[2020-04-05] MEDS ORDERED: POTASSIUM CHLORIDE CRTAB 20 MEQ TABCR PO STA (17:04)
--- NOTE | 2020-04-05 17:09 | Critical Care Consultation ---
Date of Consultation April 05, 2020 Assessment & Plan (1) Acute ND: EKG done in the ED 2:32 PM which showed [address] elevation in V1 V2 along with ST depression in V6 as well as lead II and lead III. Chest x-ray 04/05/2020: Portable film, good respiratory effort, bilateral costophrenic and cardiophrenic angles are clean, enlarged cardiac silhouette. --Acute ND Status post cardiac cath PCI performed proximal LAD and mid LAD. 100% occlusion of the right coronary artery with good collaterals Continue with aspirin, metoprolol, lisinopril, ticagrelor, Atorvastatin Pain medication for chest pain Initial troponin 0.2 Trend troponin and EKG -- DARION Follow-up urine lites Monitor BUN/creatinine Avoid nephrotoxic medications Strict ins and outs --Elevated alk phos With normal AST and ALT, normal T bili Follow-up GGT Patient does not have any abdominal pain --Dyslipidemia Continue with statin --History of IBS with anxiety --Active smoker Advised to quit PFTs as an outpatient --Prophylaxis VTE: IPC GI: Protonix Lines: Peripheral Diet: Cardiac Plan: Continue with beta-rigoberto, ticagrelor, CATHERINE inhibitor and statin along with aspirin. Pain management. Please note the above document was generated using voice recognition software. It may contain grammatical, syntax or spelling errors.Any formal questions or concerns about the content, text or information contained within the body of this dictation should be directly addressed to the provider for clarification. (2) Precordial chest pain: (3) Current smoker: (4) DARION (acute kidney injury): History of Present Illness Attending Physician: Jaspreet Cristobal MD History of Present Illness 54-year-old female with past medical history of dyslipidemia, IBS, restless leg syndrome presented to the ED with complaints of severe chest pain which has been going on since last night. It was associated with diaphoresis. Radiating to the left arm. Denies any palpitation at that time. Associated with mild shortness of breath. No dizziness, positive nausea, no vomiting Patient had an EKG done in the ED 2:32 PM which showed [address] elevation in V1 V2 along with ST depression in V6 as well as lead II and lead III. Patient was taken to the [facility]. Patient had cardiac cath with 100% occlusion of the right coronary artery. PCI performed proximal LAD and mid LAD. At the time of examination in the ICU patient denies any chest pain. No dizziness, no headache, no nausea, no vomiting. She states that she is feeling better. No shortness of breath. She is feeling cold. Social history: [id number] smoking history, active half a pack a day smoker. Denies any illicit drug use. Social alcohol. Allergies Allergy/AdvReac Type Severity Reaction Status Date / Time pregabalin Allergy Unknown hives/rash, Verified 12/23/19 06:21 pruritus cyclobenzaprine AdvReac Mild Gastrointestinal Verified 12/23/19 06:21 [From Flexeril] Upset tramadol AdvReac Mild GI upset Verified 12/23/19 06:21 Home Medications Home Medications Medication Instructions Recorded Confirmed Type amitriptyline 100 mg tablet 100 mg PO HS 12/31/18 12/23/19 History lorazepam 0.5 mg tablet 0.5 mg PO BID PRN 12/31/18 12/23/19 History propranolol 40 mg tablet 40 mg PO BID 12/31/18 12/23/19 History duloxetine [Cymbalta] 60 mg PO BID 03/05/19 12/23/19 History gabapentin 300 mg PO HS 03/05/19 12/23/19 History ondansetron HCl [Zofran] 4 mg PO Q6H PRN #7 tab 04/04/19 12/23/19 Rx Linzess 290 mcg PO DAILY 11/07/19 12/23/19 History atorvastatin 80 mg PO HS 11/07/19 12/23/19 History cimetidine [Tagamet HB] 400 mg PO HS 11/07/19 12/23/19 History cyclobenzaprine 10 mg PO TID 11/07/19 12/23/19 History diclofenac sodium 50 mg PO Q12H PRN #30 tab 11/08/19 12/23/19 Rx oxycodone 5 mg PO Q4H PRN #20 tab 11/08/19 12/23/19 Rx pantoprazole 40 mg tablet,delayed See Rx Instructions .ROUTE 12/03/19 12/23/19 Rx release .COMPLEX #30 tablet aripiprazole 10 mg PO HS 12/10/19 12/23/19 History aspirin [Aspirin Low Dose] 81 mg PO DAILY 07/14/20 07/27/20 History Patient History Medical History (Updated 04/05/20 @ 17:00 by Jaden Cárdenas MD) Anxiety Degenerative disc disease cervical Depression Essential tremor occasional hands + head- on propranolol Fibromyalgia GERD (gastroesophageal reflux disease) occasional Hiatal hernia History of difficult intubation ACDF C5-C7 with iliac crest bone graft: 03/10/14: Grade view 1, Glidescope #3, ETT 7.5 at [facility] Hyperlipidemia Migraine hx Osteoarthritis Temporomandibular joint disorder left side clicking; no locking Surgical History H/O hand surgery X [id number] FOR FRACTURE/NON BONE HEALING -- current scabbing History of arthroscopy LEFT KNEE MENISCUS REPAIR History of bilateral tubal ligation History of colonoscopy History of elbow surgery TENDONS-LEFT History of esophagogastroduodenoscopy (EGD) History of herniorrhaphy X 2 History of open reduction and internal fixation (ORIF) procedure left elbow (11/07/2019) History of repair of hiatal hernia Laparoscopic Hiatal Hernia Repair with 360 degree Fundoplication,- Tray Marion DO 04/04/19 History of repair of rotator cuff RIGHT History of tooth extraction WISDOM TEETH History of total hip arthroplasty left (11/07/2019) S/P cervical spinal fusion "2 levels" full rom Family History Mother Family history of diabetes mellitus Other No family history of adverse response to anesthesia Social History Smoking Status: Current every day smoker Tobacco Type: Cigarettes Cigarettes Per Day: 10; Second Hand Exposure: No; Do You Dip or Chew Tobacco: No; Tobacco Cessation Education Requested by Patient: No Hx Alcohol Use: No Hx Substance Use: No Preferred Language: Czech Communication Ability: Effective Nurse Advocate Required: No Beliefs That Will Affect Care: None Current Living Situation: Spouse Other Information That Helps Us Care for You: No Feels Safe at Home: Yes Safety Concerns: Feels Safe At This Time Assistive Devices: None Review of Systems Review of Systems: All systems reviewed & are unremarkable except as noted in HPI & below Physical Exam Physical Exam: Constitutional: No acute distress HEENT: EOMI, PERRLA Respiratory system: Good air entry bilaterally, no wheeze, no rhonchi, mild crackles bilateral lower lobes CVS: S1-S2 positive, no murmurs or gallops Abdomen: Soft, nontender, nondistended, positive bowel sounds x4 Extremities: +2 pulses bilaterally radialis/ dorsalis pedis, no cyanosis, +1 edema bilateral lower extremity, right radial block in place Neuro: Awake alert oriented x3 Psych: Normal mood and affect G/U: No Shay Skin: no rashes, warm and dry Lymphatic: no cervical or axillary lymphadenopathy Results & Data Results & Data ([facility]) Vital Signs (Past 12 Hours) Vital Signs Pulse Resp BP Pulse Ox 04/05/20 15:01 91 H 18 99/68 L 99 04/05/20 15:00 89 17 99 04/05/20 14:48 93 H 21 105/77 97 04/05/20 14:45 92 H 21 100 04/05/20 14:29 104 H 20 133/90 100 04/05/20 14:41 04/05/20 14:41 Coding Level of Care Code 90112 Inpt Consult Level 3 Diagnoses Acute ND I21.3 Involved coronary artery: unspecified coronary artery Myocardial infarction type: ST elevation myocardial infarction Precordial chest pain R07.2 Current smoker F17.200 DARION (acute kidney injury) N17.9 (1) Acute ND Involved coronary artery: unspecified coronary artery Myocardial infarction type: ST elevation myocardial infarction Qualified Code(s): I21.3 - ST elevation (STEMI) myocardial infarction of unspecified site
[2020-04-05] MEDS: NITROGLYCERIN SL 0.4 MG/TAB TAB SL PRN ×2 (17:23→20:22)
[2020-04-05] MEDS ORDERED: MoRPHine SULFATE 2 MG/ML CARP IV STA (17:31)
[2020-04-05 17:36] LABS: Basophils # (auto) 0.01 K/uL (0-0.2); Basophils % (auto) 0.1 %; Eosinophils % (auto) 2.5 %; Hematocrit (blood only) 36.3 % (37-47); Hemoglobin 12.2 g/dL (12.0-16.0); Immature Granulocytes # (auto) 0.03 K/uL (0.00-0.02); Immature Granulocytes % (auto) 0.2 %; Lymphocytes # (auto) 3.93 K/uL (1.2-3.4); Lymphocytes % (auto) 32.2 %; Mean Corpuscular Hemoglobin 32.1 pg (25-34); Mean Corpuscular Hgb Conc 33.6 g/dL (32-36); Mean Corpuscular Volume 95.5 fL (80-100); Mean Platelet Volume 9.4 fL (7.4-10.4); Monocytes # (auto) 0.66 K/uL (0.11-0.59); Monocytes % (auto) 5.4 %; Neutrophils # (auto) 7.26 K/uL (1.4-6.5); Neutrophils % (auto) 59.6 %; Platelet Count 298 K/uL (130-400); RDW Coefficient of Variation 14.6 % (11.5-14.5); RDW Standard Deviation 50.9 fL (36.4-46.3); White Blood Count 12.19 K/uL (4.8-10.8)
[2020-04-05] MEDS ORDERED: ICU PROTOCOL FOR HYPERGLYCEMIA PRN (17:36)
[2020-04-05] MEDS: ATORVASTATIN 40 MG TAB PO SCH (18:26)
[2020-04-05] MEDS: PANTOprazole 40 MG TAB PO SCH (18:26)
[2020-04-05] MEDS ORDERED: METOPROLOL TARTRATE 1 MG/ML VIAL IV ONE (18:51)
--- NOTE | 2020-04-05 18:53 | Communication Note ---
Date of Service: April 05, 2020 Critical CARE addendum: Patient was complaining of retrosternal chest pain which started with 3 out of 10 intensity, increased to 5 out of 10. EKG was repeated which did not show any significant change compared to EKG she presented with. It was normal sinus rhythm with ST elevation 1 mm in V2. Patient got sublingual nitroglycerin followed by 2 mg of morphine. She was still complaining of chest pain after an hour. Another EKG was repeated which again did not show any significant change there is approximately 2 mm elevation in V2, 1 mm elevation in V1 as well as V3. I did discuss the case with Dr. Cristobal interventional cardiology who performed the procedure on the patient. As per him it does not seem like rethrombosis of the stent as he put the stent in the LAD. If there was any rethrombosis the pain would be very severe. He recommends giving Lopressor to decrease the heart rate. And starting nitro drip if the patient still complains of chest pain. Coding Level of Care Code Critical Care herman salcedo'yvonne 30 min Time Spent (min) 12
[2020-04-05 19:03] LABS: Appearance Urine Clear (Clear); Bilirubin Urine Negative (Negative); Blood Urine Negative (Negative); Color Urine Yellow; Glucose Urine UA Negative (Negative); Ketones Urine Negative (Negative); Leukocyte Esterase Urine Negative (Negative); Nitrite Urine Negative (Negative); Protein Urine Negative (Negative); Specific Gravity Urine 1.045 (1.000-1.030); Urobilinogen Urine Negative (Negative)
[2020-04-05 19:32] LABS: Creatinine Urine Random 77.1 mg/dl; Uric Acid Urine Random 24.3 mg/dl
[2020-04-05] MEDS ORDERED: METOPROLOL TARTRATE 25 MG TAB PO SCH (21:00)
--- NOTE | 2020-04-05 21:35 | History & Physical Report ---
Date of Service April 05, 2020 Assessment & Plan (1) Acute PA: EKG in the ED with 2 mm STEMI in V1 V2 along with ST depression in V6 as well as lead II and lead III. CXR neg for acute --Acute PA Status post cardiac cath PCI performed proximal LAD and mid LAD. 100% occlusion of the right coronary artery with good collaterals Continue with aspirin, metoprolol, lisinopril, ticagrelor, Atorvastatin Pain medication for chest pain Initial troponin 0.2 Trend troponin and EKG Continue with beta-rigoberto, ticagrelor, CATHERINE inhibitor and statin along with aspirin (2) DARION (acute kidney injury): Cr 1.5 on admission Monitor (3) Current smoker: (4) Dyslipidemia: continue home med Lipids pending (5) DVT prophylaxis: As per cardiology Admission and Anticipated Discharge Date Admission Date: April 05, 2020 History of Present Illness Primary Care Provider: NO PCP 54 y/o F s/p cath for PA dx in the ED earlier today. She states she is having very slight ache in her chest, maybe a 2/10 and nothing like prior. No SOB. Pt denies fever, abd pain, n/v/c/d, LE pain or swelling. Tolerated PO without issue. Onset of pain was Monday with raking leaves. Became intermittent but then returned today with increased pain. Allergies Allergy/AdvReac Type Severity Reaction Status Date / Time pregabalin Allergy Unknown hives/rash, Verified 12/23/19 06:21 pruritus cyclobenzaprine AdvReac Mild Gastrointestinal Verified 12/23/19 06:21 [From Flexeril] Upset tramadol AdvReac Mild GI upset Verified 12/23/19 06:21 Home Medications Home Medications Medication Instructions Recorded Confirmed Type amitriptyline 100 mg tablet 100 mg PO HS 12/31/18 12/23/19 History lorazepam 0.5 mg tablet 0.5 mg PO BID PRN 12/31/18 12/23/19 History propranolol 40 mg tablet 40 mg PO BID 12/31/18 12/23/19 History duloxetine [Cymbalta] 60 mg PO BID 03/05/19 12/23/19 History gabapentin 300 mg PO HS 03/05/19 12/23/19 History ondansetron HCl [Zofran] 4 mg PO Q6H PRN #7 tab 04/04/19 12/23/19 Rx Linzess 290 mcg PO DAILY 11/07/19 12/23/19 History atorvastatin 80 mg PO HS 11/07/19 12/23/19 History cimetidine [Tagamet HB] 400 mg PO HS 11/07/19 12/23/19 History cyclobenzaprine 10 mg PO TID 11/07/19 12/23/19 History diclofenac sodium 50 mg PO Q12H PRN #30 tab 11/08/19 12/23/19 Rx oxycodone 5 mg PO Q4H PRN #20 tab 11/08/19 12/23/19 Rx pantoprazole 40 mg tablet,delayed See Rx Instructions .ROUTE 12/03/19 12/23/19 Rx release .COMPLEX #30 tablet aripiprazole 10 mg PO HS 12/10/19 12/23/19 History aspirin [Aspirin Low Dose] 81 mg PO DAILY 12/10/19 12/23/19 History Past Med/Surg History Medical History Anxiety Degenerative disc disease cervical Depression Essential tremor occasional hands + head- on propranolol Fibromyalgia GERD (gastroesophageal reflux disease) occasional Hiatal hernia History of difficult intubation ACDF C5-C7 with iliac crest bone graft: 03/10/14: Grade view 1, Glidescope #3, ETT 7.5 at [facility] Hyperlipidemia Migraine hx Osteoarthritis Temporomandibular joint disorder left side clicking; no locking Surgical History H/O hand surgery [id number] FOR FRACTURE/NON BONE HEALING -- current scabbing History of arthroscopy LEFT KNEE MENISCUS REPAIR History of bilateral tubal ligation History of colonoscopy History of elbow surgery TENDONS-LEFT History of esophagogastroduodenoscopy (EGD) History of herniorrhaphy X 2 History of open reduction and internal fixation (ORIF) procedure left elbow (11/07/2019) History of repair of hiatal hernia Laparoscopic Hiatal Hernia Repair with 360 degree Fundoplication,- Tray Marion DO 04/04/19 History of repair of rotator cuff RIGHT History of tooth extraction WISDOM TEETH History of total hip arthroplasty left (11/07/2019) S/P cervical spinal fusion "2 levels" full rom Family History Mother Family history of diabetes mellitus Other No family history of adverse response to anesthesia Social History Smoking Status: Current every day smoker Tobacco Type: Cigarettes Cigarettes Per Day: 10; Second Hand Exposure: No; Hx Alcohol Use: No Hx Substance Use: No Preferred Language: Nepali Communication Ability: Effective Kaiako [place] Required: No Beliefs That Will Affect Care: None Current Living Situation: Spouse Feels Safe at Home: Yes Assistive Devices: None Review of Systems Review of Systems: Pertinent positives and negatives reviewed in HPI--all others negative Physical Exam Constitutional: WD/WN, vitals as above Eyes: normal visual schmitt by confrontation and + anicteric sclerae Neck: normal visual inspection and trachea midline Respiratory: normal respiratory effort, lungs clear to auscultation Cardiovascular: Rate/Rhythm: regular rate and regular rhythm Gastrointestinal (Abdomen): Inspection/Auscultation: abdomen not distended Percussion/Palpation: abdomen soft; abdomen nontender Musculoskeletal: Head/Neck/Chest: normocephalic and head atraumatic negative for edema, peripheral pulses intact Skin: no rashes, warm and dry Neurologic: awake; not confused Speech / Cognition: normal speech Psychiatric: A+Ox3, euthymic affect Results & Data Results & Data ([facility]) Vital Signs (Past 12 Hours) Vital Signs Temp Pulse Pulse Resp BP BP Pulse Ox 04/05/20 20:39 82 18 105/77 97 04/05/20 20:30 95 H 20 109/77 94 04/05/20 20:00 36.7 C 86 17 116/87 97 04/05/20 19:39 84 20 117/84 96 04/05/20 19:30 83 24 96 04/05/20 19:18 88 118/89 04/05/20 18:45 83 15 98 04/05/20 18:35 94 H 22 121/88 98 04/05/20 18:30 94 H 20 98 04/05/20 18:22 92 H 16 121/83 99 04/05/20 18:15 95 H 21 98 04/05/20 18:12 94 H 24 121/93 98 04/05/20 18:07 83 16 121/93 97 04/05/20 18:00 98 H 18 98 04/05/20 17:52 86 17 118/82 98 04/05/20 17:45 79 13 98 04/05/20 17:37 84 15 112/76 97 04/05/20 17:30 94 H 15 95 04/05/20 17:22 93 H 28 H 112/89 97 04/05/20 17:15 93 H 23 98 04/05/20 17:07 91 H 28 H 101/78 97 04/05/20 17:00 87 20 96 04/05/20 16:56 84 14 103/76 97 04/05/20 16:52 92 H 20 103/76 97 04/05/20 16:45 91 H 16 97 04/05/20 16:37 77 18 109/57 L 97 04/05/20 16:30 85 16 94 04/05/20 16:29 86 17 94 04/05/20 16:23 83 16 74/48 L 95 04/05/20 15:01 91 H 18 99/68 L 99 04/05/20 15:00 89 17 99 04/05/20 14:48 93 H 21 105/77 97 04/05/20 14:45 92 H 21 100 04/05/20 14:29 104 H 20 133/90 100 Diagnostic Findings CXR: neg for acute Code Status & VTE Plan Code Status Full code VTE Prophylaxis Plan VTE Prophylaxis will be ordered: Yes PG Care Time/CCT Total # of Minutes Spent Total Time Spent with Patient: Total time spent is greater than 50% in coordination of care (as documented) at patient's floor/unit and/or counseling patient: Coding Level of Care Code 66474 Initial Inpt Care Lvl 3 Diagnoses Acute PA I21.3 Involved coronary artery: unspecified coronary artery Myocardial infarction type: ST elevation myocardial infarction DARION (acute kidney injury) N17.9 Current smoker F17.200 Dyslipidemia E78.5 DVT prophylaxis Z29.9 (1) Acute PA Involved coronary artery: unspecified coronary artery Myocardial infarction type: ST elevation myocardial infarction Qualified Code(s): I21.3 - ST elevation (STEMI) myocardial infarction of unspecified site
[2020-04-06] MEDS: TICAGRELOR 90 MG TAB PO SCH ×2 (02:50→18:38)
[2020-04-06] MEDS ORDERED: LORazepam 0.5 MG TAB PO STA (03:15)
[2020-04-06 04:20] LABS: Magnesium 1.8 mg/dl (1.8-2.4); Phosphorus 2.8 mg/dl (2.5-4.9); Troponin I 17.3 ng/ml (0-0.045)
--- NOTE | 2020-04-06 05:53 | Critical Care Progress Note ---
Date of Service April 06, 2020 Assessment & Plan (1) Acute AL: Reason Critically Ill: 54 yo F PMHx significant for anxiety, depression, smoking, essential tremor who presented with chest pain and who was admitted for acute STEMI, now s/p PCI x2 to LAD. Neuropsych - CAM ICU: negative Sedation: none Analgesia: Tylenol, nitro PRN Anxiety and Depression, Essential Tremor: - Continue home medications. - Resolution of chest pain seemed to correlate with receiving Ativan and beta rigoberto, likely anxiety motivated. - Continue metoprolol 25mg BID. Cardiac - Acute STEMI: - Status post cardiac catheterization 04/05, s/p PCI x2 to proximal and mid LAD. - Also notable 100% occlusion of RCA with good collaterals. - Without chest pain today, did well with ambulation this morning. - Troponin 17 this AM up from 0.2 prior to catheterization. - Continue with aspirin, metoprolol, lisinopril, ticagrelor, atorvastatin. - Advised smoking cessation. - Serial EKGs, interventional cardiology following. Hyperlipidemia: - Continue atorvastatin. Respiratory - - Advised smoking cessation as above. GI - - Heart Healthy diet. - Continue home pantoprazole for GERD. RENAL/LYTES - - No significant electrolyte derangement. - Replace lytes as needed. DARION: - On admission with creatinine 1.30. - Resolved, creatinine 1.01 without intervention. - - No concerns at this time. ENDO - - No history of DM2. - D/c glucose checks. HEME - - Stable H&H. ID - - No concerns for infection at this point. INTEGUMENTARY - - R wrist catheterization site clean, dry, intact, no hematoma. LINES/IV ACCESS - - PIVs intact. DVT PROPHYLAXIS - - Heparin gtt d/c'ed yesterday. - Ambulate on demand, SCDs; will need added medical prophylaxis if not discharged today. This patient is stable for downgrade from ICU level of care. Thank you for allowing us to be part of this patient's care. Please refer to Dr. Wilcox's documentation for any further recommendations. (2) Current smoker: (3) Hiatal hernia with GERD: (4) Depression with anxiety: Admission and Anticipated Discharge Date Admission Date: April 05, 2020 Supervising Physician Co-Signing Physician Notes Dr. Maravilla was resident physician during care of patient. I separately evaluated patient for perez portions of the history and the exam. I was present during the critical portion of medical decision making, and I discussed the case with the resident. I generally agree with the findings and plan. Patient asymptomatic during my evaluation has been up and ambulating around the ICU. Stable for downgrade out of ICU Subjective Patient had some chest pain overnight into the lighting engineer. Seen walking around ICU floor without assistance, no chest pain or SOB with walking. No chest pain this morning, reports that it went away after getting some Ativan which she takes at home. Anxious to go home. Review of Systems Review of Systems: All systems reviewed & are unremarkable except as noted in HPI & below Constitutional: no fever, no chills and no malaise Respiratory: no cough and no dyspnea Cardiovascular: no chest pain, no palpitations and no edema Gastrointestinal: no abdominal pain, no constipation and no diarrhea/loose stools Genitourinary: no dysuria and no hematuria Physical Exam Physical Exam: VITAL SIGNS - Vital signs and nursing notes were reviewed. GENERAL - 54 yo F awake, alert, no acute distress SKIN - No rashes. Right wrist catheterization site without hematoma. Dressing dry. EYES - PERRL. Sclera anicteric. Palpebral conjunctiva pink and moist with no injection noted. EARS - No deformities of external structures noted on gross examination bilaterally. NOSE - Midline and without cyanosis. No epistaxis or purulent drainage noted. MOUTH/OROPHARYNX - No perioral cyanosis. NECK - Supple to palpation. No nuchal rigidity. LUNGS - clear to auscultation bilaterally, no wheezes, crackles. CARDIAC - Regular rate and rhythm. No murmur, rubs, or gallops appreciated. ABDOMEN - Soft, nontender, nondistended, normal bowel sounds. EXTREMITIES - No clubbing or peripheral cyanosis. No peripheral edema. Radial and dorsalis pedis pulses palpated bilaterally. NEUROLOGIC - No focal neurological deficits noted on exam. Results & Data Results & Data ([facility]) Vital Signs (Past 12 Hours) Vital Signs Temp Pulse Pulse Resp BP BP Pulse Ox 04/06/20 04:00 36.8 C 84 15 109/74 94 04/06/20 03:30 90 22 94 04/06/20 03:00 89 17 134/86 95 04/06/20 02:30 89 17 95 04/06/20 02:00 81 17 112/92 94 04/06/20 01:30 85 20 94 11/09/20 01:00 89 17 112/83 97 04/06/20 00:30 89 16 96 04/06/20 00:00 36.7 C 82 20 116/85 95 04/05/20 23:30 85 23 96 04/05/20 23:00 81 14 94/72 L 95 04/05/20 22:30 84 18 95 04/05/20 22:00 89 23 100/65 96 04/05/20 21:32 100 H 20 98 04/05/20 21:00 86 18 105/77 97 04/05/20 20:39 82 18 105/77 97 04/05/20 20:30 95 H 20 109/77 94 04/05/20 20:00 36.7 C 86 17 116/87 97 04/05/20 19:39 84 20 117/84 96 04/05/20 19:30 83 24 96 04/05/20 19:18 88 118/89 04/05/20 18:45 83 15 98 04/05/20 18:35 94 H 22 121/88 98 04/05/20 18:30 94 H 20 98 04/05/20 18:22 92 H 16 121/83 99 04/05/20 18:15 95 H 21 98 04/05/20 18:12 94 H 24 121/93 98 04/05/20 18:07 83 16 121/93 97 04/05/20 18:00 98 H 18 98 Resident Activity Tracking Resident Involvement: Resident Care Provided Care Provided: Adult Hospital Medicine (1) Acute AL Involved coronary artery: unspecified coronary artery Myocardial infarction type: ST elevation myocardial infarction Qualified Code(s): I21.3 - ST elevation (STEMI) myocardial infarction of unspecified site
[2020-04-06 06:21] LABS: BUN Creatinine Ratio 8.8 (10-20); Blood Urea Nitrogen 9 mg/dl (7-18); Chloride 110 mmol/L (98-107); Creatinine Clr Calc Pharmacy 74.9 ml/min; Est GFR (African American) 72.6; Est GFR (Non-African American) 62.6; Glucose 128 mg/dl (70-99); Potassium 3.5 mmol/L (3.5-5.1); Sodium 142 mmol/L (136-145)
[2020-04-06 06:22] LABS: Calcium 8.7 mg/dl (8.5-10.1)
[2020-04-06] MEDS: ATORVASTATIN 40 MG TAB PO SCH (08:05)
[2020-04-06] MEDS: PANTOprazole 40 MG TAB PO SCH (08:05)
[2020-04-06] MEDS: ASPIRIN 81 MG ECTAB PO SCH (08:05)
--- NOTE | 2020-04-06 10:02 | Cardiology Progress Note ---
Date of Service April 06, 2020 Assessment & Plan (1) Acute MN: Post PCI with 2 TERESITA to proximal to mid LAD 2. Ischemic cardiomyopathyEF 30 to 35% with LAD distribution wall motion abnormality 3. Dyslipidemia 4. Carotid artery disease 5. Ongoing tobacco abuse Chest pain-free, electrically stable. Borderline blood pressures. Well-perfused, dry to euvolemic on exam Moderate to severe LV dysfunction on echocardiogram Trend troponin until to peak Continue aspirin, ticagrelor Gentle IV fluids Resume metoprolol as BP allows Continue high-intensity statin, lipids pending From a cardiac standpoint okay with transfer to telemetry today. With severe LV dysfunction will discuss LifeVest with patient. Possible discharge tomorrow from a cardiac standpoint Admission and Anticipated Discharge Date Admission Date: April 05, 2020 Subjective Feeling well this morning. No additional chest pain overnight. No other new concerns. Telemetry reviewedno arrhythmia Review of Systems Review of Systems: All systems reviewed & are unremarkable except as noted in HPI & below Physical Exam Physical Exam: General: Comfortable, no acute distress HEENT: Sclerae anicteric, mucous membranes moist Lungs: Clear to auscultation bilaterally, no rhonchi or wheezes Cardiac: Regular rate and rhythm, no murmurs. No JVD. Abdomen: Soft, nontender, nondistended, positive bowel sounds. Extremities: Warm, well perfused, no edema. Right radial artery access site with no ecchymosis, hematoma. Distal pulse and sensation intact. Skin: No rashes or lesions. Neuro: Nonfocal Psych: Alert orient x3, normal affect and mood Results & Data ([facility]) Vital Signs (Past 12 Hours) Vital Signs Temp Pulse Resp BP Pulse Ox 04/06/20 08:30 97 H 21 98 04/06/20 08:05 89 21 81/57 L 99 04/06/20 08:04 90 20 98/60 L 98 04/06/20 08:00 91 H 28 H 97 04/06/20 07:30 98.2 F 94 H 21 96 04/06/20 07:00 86 17 96 04/06/20 06:01 89 18 91/66 L 95 04/06/20 05:30 74 14 96 04/06/20 05:00 80 20 84/60 L 96 04/06/20 04:30 83 19 95 04/06/20 04:00 98.2 F 84 15 109/74 94 04/06/20 03:30 90 22 94 04/06/20 03:00 89 17 134/86 95 04/06/20 02:30 89 17 95 04/06/20 02:00 81 17 112/92 94 04/06/20 01:30 85 20 94 04/06/20 01:00 89 17 112/83 97 04/06/20 00:30 89 16 96 04/06/20 00:00 98.1 F 82 20 116/85 95 04/05/20 23:30 85 23 96 04/05/20 23:00 81 14 94/72 L 95 04/05/20 22:30 84 18 95 04/05/20 22:00 89 23 100/65 96 PG Care Time/CCT Total # of Minutes Spent Total Time Spent with Patient: Total time spent is greater than 50% in coordination of care (as documented) at patient's floor/unit and/or counseling patient: Coding Level of Care Code 07331 Subseq Hosp Care Lvl 3 Diagnoses Acute MN I21.3 Involved coronary artery: unspecified coronary artery Myocardial infarction type: ST elevation myocardial infarction (1) Acute MN Involved coronary artery: unspecified coronary artery Myocardial infarction type: ST elevation myocardial infarction Qualified Code(s): I21.3 - ST elevation (STEMI) myocardial infarction of unspecified site
--- NOTE | 2020-04-06 10:07 | Electrocardiogram Report ---
Test Reason : Blood Pressure : / mmHG Vent. Rate : 097 BPM Atrial Rate : 097 BPM P-R Int : 150 ms QRS Dur : 102 ms QT Int : 352 ms P-R-T Axes : 078 079 109 degrees QTc Int : 447 ms Age and gender specific ECG analysis Normal sinus rhythm Biatrial enlargement ST elevation consider anterior injury or acute infarct ACUTE CT / STEMI Abnormal ECG When compared with ECG of 07-NOV-2019 10:30, ST now depressed in Inferior leads ST elevation now present in Anterior leads Nonspecific T wave abnormality now evident in Inferior leads T wave inversion now evident in Lateral leads Confirmed by Kulwinder Negron ([id number]) on 04/06/2020 10:06:39 AM Referred By: Confirmed By:Kulwinder Negron
--- NOTE | 2020-04-06 10:11 | Electrocardiogram Report ---
Test Reason : Blood Pressure : / mmHG Vent. Rate : 093 BPM Atrial Rate : 093 BPM P-R Int : 140 ms QRS Dur : 092 ms QT Int : 382 ms P-R-T Axes : 069 077 103 degrees QTc Int : 474 ms Poor data quality, interpretation may be adversely affected Normal sinus rhythm Possible Left atrial enlargement Borderline ECG When compared with ECG of 05-APR-2020 17:18, (unconfirmed) No significant change was found Confirmed by Kulwinder Negron ([id number]) on 04/06/2020 10:11:08 AM Referred By: REFERRED SELF Confirmed By:Kulwinder Negron
--- NOTE | 2020-04-06 10:11 | Electrocardiogram Report ---
Test Reason : Blood Pressure : / mmHG Vent. Rate : 089 BPM Atrial Rate : 089 BPM P-R Int : 142 ms QRS Dur : 092 ms QT Int : 378 ms P-R-T Axes : 068 073 105 degrees QTc Int : 459 ms Normal sinus rhythm Possible Left atrial enlargement Borderline ECG When compared with ECG of 05-APR-2020 14:34, (unconfirmed) ST no longer depressed in Inferior leads T wave inversion no longer evident in Lateral leads Confirmed by Kulwinder Negron ([id number]) on 04/06/2020 10:10:54 AM Referred By: REFERRED SELF Confirmed By:Kulwinder Negron
[2020-04-06] MEDS ORDERED: SODIUM CHLORIDE 0.9% 1000ML 1,000 ML IV SCH (10:15)
--- NOTE | 2020-04-06 10:20 | Electrocardiogram Report ---
Test Reason : Blood Pressure : / mmHG Vent. Rate : 086 BPM Atrial Rate : 086 BPM P-R Int : 138 ms QRS Dur : 092 ms QT Int : 446 ms P-R-T Axes : 054 078 123 degrees QTc Int : 533 ms Normal sinus rhythm Prolonged QT Abnormal ECG When compared with ECG of 05-APR-2020 18:39, (unconfirmed) Non-specific change in ST segment in Anterior leads T wave inversion now evident in Anterolateral leads QT has lengthened Confirmed by Kulwinder Negron ([id number]) on 04/06/2020 10:19:49 AM Referred By: REFERRED SELF Confirmed By:Kulwinder Negron
--- NOTE | 2020-04-06 11:05 | XCELERA ---
[id number]
[2020-04-06] MEDS: METOPROLOL TARTRATE 25 MG TAB PO SCH ×2 (11:52→20:29)
--- NOTE | 2020-04-06 12:44 | Hospitalist Progress Note ---
Date of Service April 06, 2020 Assessment & Plan (1) Acute VT: EKG in the ED with 2 mm STEMI in V1 V2 along with ST depression in V6 as well as lead II and lead III. CXR neg for acute --Acute VT Status post cardiac cath PCI performed proximal LAD and mid LAD. 100% occlusion of the right coronary artery with good collaterals Continue with aspirin, metoprolol, lisinopril, ticagrelor, Atorvastatin Pain medication for chest pain Initial troponin 0.2 Trend troponin and EKG Continue with beta-rigoberto, ticagrelor, CATHERINE inhibitor and statin along with aspirin CM states that cost of brilinta should be $30/month and pt to be given a card that will further drop it to $5/month. (2) DARION (acute kidney injury): Cr 1.5 on admission, down to 1.0 Monitor (3) Current smoker: (4) Dyslipidemia: continue home med Lipids pending (5) DVT prophylaxis: As per cardiology Admission and Anticipated Discharge Date Admission Date: April 05, 2020 Subjective Pt states she has a mild ache in her chest, but minimal. No SOB. Tolerating PO. Pt denies fever, abd pain, n/v/c/d, LE pain or swelling. Review of Systems Review of Systems: Pertinent positives and negatives reviewed in HPI--all others negative Physical Exam Constitutional: WD/WN, vitals as above Eyes: normal visual schmitt by confrontation and + anicteric sclerae Neck: normal visual inspection and trachea midline Respiratory: normal respiratory effort, lungs clear to auscultation Cardiovascular: Rate/Rhythm: regular rate and regular rhythm Gastrointestinal (Abdomen): Inspection/Auscultation: abdomen not distended Percussion/Palpation: abdomen soft; abdomen nontender Musculoskeletal: Head/Neck/Chest: normocephalic and head atraumatic Skin: no rashes, warm and dry Neurologic: awake; not confused Speech / Cognition: normal speech Psychiatric: A+Ox3, euthymic affect Results & Data Results & Data ([facility]) Vital Signs (Past 12 Hours) Vital Signs Temp Pulse Resp BP Pulse Ox 04/06/20 08:30 97 H 21 98 04/06/20 08:05 89 21 81/57 L 99 04/06/20 08:04 90 20 98/60 L 98 04/06/20 08:00 91 H 28 H 97 04/06/20 07:30 36.8 C 94 H 21 96 04/06/20 07:00 86 17 96 04/06/20 06:01 89 18 91/66 L 95 04/06/20 05:30 74 14 96 04/06/20 05:00 80 20 84/60 L 96 04/06/20 04:30 83 19 95 04/06/20 04:00 36.8 C 84 15 109/74 94 04/06/20 03:30 90 22 94 04/06/20 03:00 89 17 134/86 95 04/06/20 02:30 89 17 95 04/06/20 02:00 81 17 112/92 94 04/06/20 01:30 85 20 94 04/06/20 01:00 89 17 112/83 97 PG Care Time/CCT Total # of Minutes Spent Total Time Spent with Patient: Total time spent is greater than 50% in coordination of care (as documented) at patient's floor/unit and/or counseling patient: Coding Level of Care Code 50753 Subseq Hosp Care Lvl 3 Diagnoses Acute VT I21.3 Involved coronary artery: unspecified coronary artery Myocardial infarction type: ST elevation myocardial infarction DARION (acute kidney injury) N17.9 Current smoker F17.200 Dyslipidemia E78.5 DVT prophylaxis Z29.9 (1) Acute [place] Involved coronary artery: unspecified coronary artery Myocardial infarction type: ST elevation myocardial infarction Qualified Code(s): I21.3 - ST elevation (STEMI) myocardial infarction of unspecified site
--- NOTE | 2020-04-06 15:32 | Billing Data ---
Date of Service April 06, 2020 Coding Level of Care Code 77290 Subseq Hosp Care Lvl 1
[2020-04-06 15:46] LABS: Basophils # (auto) 0.01 K/uL (0-0.2); Basophils % (auto) 0.1 %; Eosinophils # (auto) 0.29 K/uL (0-0.5); Eosinophils % (auto) 2.4 %; Hematocrit (blood only) 36.2 % (37-47); Immature Granulocytes # (auto) 0.03 K/uL (0.00-0.02); Immature Granulocytes % (auto) 0.3 %; Lymphocytes % (auto) 25.9 %; Mean Corpuscular Hemoglobin 31.6 pg (25-34); Mean Corpuscular Hgb Conc 33.1 g/dL (32-36); Mean Corpuscular Volume 95.3 fL (80-100); Mean Platelet Volume 9.2 fL (7.4-10.4); Monocytes # (auto) 1.05 K/uL (0.11-0.59); Monocytes % (auto) 8.8 %; Neutrophils # (auto) 7.48 K/uL (1.4-6.5); Neutrophils % (auto) 62.5 %; Platelet Count 292 K/uL (130-400); RDW Coefficient of Variation 14.5 % (11.5-14.5); RDW Standard Deviation 50.5 fL (36.4-46.3); White Blood Count 11.96 K/uL (4.8-10.8)
[2020-04-06 16:04] LABS: Potassium 3.5 mmol/L (3.5-5.1)
[2020-04-06 18:02] LABS: BUN Creatinine Ratio 9.4 (10-20); Calcium 8.8 mg/dl (8.5-10.1); Creatinine Clr Calc Pharmacy 82.2 ml/min; Est GFR (African American) 81.2; Est GFR (Non-African American) 70.1
[2020-04-06] MEDS: lisinopril 5 MG TAB PO SCH (18:33)
[2020-04-07] MEDS: METOPROLOL TARTRATE 25 MG TAB PO SCH (08:02)
[2020-04-07] MEDS: lisinopril 5 MG TAB PO SCH (08:03)
[2020-04-07] MEDS: ATORVASTATIN 40 MG TAB PO SCH (08:03)
[2020-04-07] MEDS: PANTOprazole 40 MG TAB PO SCH (08:04)
[2020-04-07] MEDS: ASPIRIN 81 MG ECTAB PO SCH (08:04)
[2020-04-07] MEDS: TICAGRELOR 90 MG TAB PO SCH (08:05)
[2020-04-07 08:08] LABS: Estimated Average Glucose 134 mg/dl; Hemoglobin A1C 6.3 % (4.5-5.6)
[2020-04-07 08:25] LABS: Chol HDL Ratio 2; Cholesterol 118 mg/dl (0-200); HDL Cholesterol 50 mg/dl; LDL Cholesterol Calculated 50 mg/dl; Triglycerides 88 mg/dl (0-150); VLDL Cholesterol 18 mg/dl
--- NOTE | 2020-04-07 08:59 | Cardiology Progress Note ---
Date of Service April 07, 2020 Assessment & Plan (1) Acute CA: Post PCI with 2 TERESITA to proximal to mid LAD 2. Ischemic cardiomyopathyEF 30 to 35% with LAD distribution wall motion abnormality 3. Dyslipidemia 4. Carotid artery disease 5. Ongoing tobacco abuse Patient stable from a cardiac standpoint okay for discharge later today. Home on: Aspirin 81, ticagrelor 90 mg twice daily Transition to Toprol-XL 25 mg daily Continue lisinopril 5 mg daily Continue home atorvastatin 80 mg daily Smoking cessation LifeVest to be placed later today. Repeat echocardiogram in 1 month Follow-up with me in 1 week. Admission and Anticipated Discharge Date Admission Date: April 05, 2020 Subjective Feeling well this morning. No chest pain. No shortness of breath. No wrist pain. Telemetry reviewedno events. Review of Systems Review of Systems: All systems reviewed & are unremarkable except as noted in HPI & below Physical Exam Physical Exam: General: Comfortable, no acute distress HEENT: Sclerae anicteric, mucous membranes moist Lungs: Clear to auscultation bilaterally, no rhonchi or wheezes Cardiac: Regular rate and rhythm, no murmurs. No JVD. Abdomen: Soft, nontender, nondistended, positive bowel sounds. Extremities: Warm, well perfused, no edema. Right radial artery access site with no ecchymosis, hematoma. Distal pulse and sensation intact. Skin: No rashes or lesions. Neuro: Nonfocal Psych: Alert orient x3, normal affect and mood Results & Data ([facility]) Vital Signs (Past 12 Hours) Vital Signs Temp Pulse Pulse Pulse Resp BP Pulse Ox 04/07/20 07:57 87 04/07/20 07:01 98.2 F 84 18 95/65 L 97 04/07/20 04:29 98.1 F 85 18 110/79 99 04/07/20 01:30 98.1 F 81 16 95/64 L 98 04/07/20 01:21 83 04/06/20 21:36 93 H PG Care Time/CCT Total # of Minutes Spent Total Time Spent with Patient: Total time spent is greater than 50% in coordination of care (as documented) at patient's floor/unit and/or counseling patient: Coding Level of Care Code 78025 Subseq Hosp Care Lvl 3 Diagnoses Acute CA I21.3 Involved coronary artery: unspecified coronary artery Myocardial infarction type: ST elevation myocardial infarction (1) Acute CA Involved coronary artery: unspecified coronary artery Myocardial infarction type: ST elevation myocardial infarction Qualified Code(s): I21.3 - ST elevation (STEMI) myocardial infarction of unspecified site
[2020-04-08] MEDS ORDERED: METOPROLOL SUCC 25MG EXT REL TAB PO SCH (09:00)
--- NOTE | 2020-04-15 08:54 | Discharge Summary ---
Date of Service April 07, 2020 Admission HPI Per Admitting Provider 54 y/o F s/p cath for MN dx in the ED earlier today. She states she is having very slight ache in her chest, maybe a 2/10 and nothing like prior. No SOB. Pt denies fever, abd pain, n/v/c/d, LE pain or swelling. Tolerated PO without issue. Onset of pain was Monday with raking leaves. Became intermittent but then returned today with increased pain. Principal Diagnosis ACUTE MN Discharge Exam Constitutional: WD/WN, vitals as above Eyes: normal visual schmitt by confrontation and + anicteric sclerae Neck: normal visual inspection and trachea midline Respiratory: normal respiratory effort, lungs clear to auscultation Cardiovascular: Rate/Rhythm: regular rate and regular rhythm Gastrointestinal (Abdomen): Inspection/Auscultation: abdomen not distended Percussion/Palpation: abdomen soft; abdomen nontender Musculoskeletal: Head/Neck/Chest: normocephalic and head atraumatic Skin: no rashes, warm and dry Neurologic: awake; not confused Speech / Cognition: normal speech Psychiatric: A+Ox3, euthymic affect Discharge Data Allergies Allergy/AdvReac Type Severity Reaction Status Date / Time pregabalin Allergy Unknown hives/rash, Verified 12/23/19 06:21 pruritus cyclobenzaprine AdvReac Mild Gastrointestinal Verified 12/23/19 06:21 [From Flexeril] Upset tramadol AdvReac Mild GI upset Verified 12/23/19 06:21 Consultations 04/05/20 15:54 Consult Internal Medicine Routine 04/05/20 17:37 Consult Case Management - Discharge Planning Routine Consult Accounts Receivable Analyst Routine Procedures Performed Operation Date: 04/05/20 14:50 Actual Procedures p Aspiration/PCI w/TERESITA for Stemi - Jaspreet Cristobal MD s Cineradiography w/Routine Exam - Jaspreet Cristobal MD s Cath, Coronaries ONLY (no LV) - Jaspreet Cristobal MD s Cardiac Heart Alert - Jaspreet Cristobal MD Ordered Studies 04/05/20 14:52 CL Cath Imgs for PACS use only Stat Hospital Course (1) Acute MN: EKG in the ED with 2 mm STEMI in V1 V2 along with ST depression in V6 as well as lead II and lead III. CXR neg for acute --Acute MN Status post cardiac cath PCI performed proximal LAD and mid LAD. 100% occlusion of the right coronary artery with good collaterals Continue with aspirin, metoprolol, lisinopril, ticagrelor, Atorvastatin Pain medication for chest pain Continue with beta-rigoberto, ticagrelor, CATHERINE inhibitor and statin along with aspirin Continue toprol XL 25 mg PO Daily (2) DARION (acute kidney injury): Cr 1.5 on admission, down to 1.0 resolved. (3) Current smoker: (4) Dyslipidemia: continue home med (5) DVT prophylaxis: As per cardiology Total Time Total Time Spent Total Time Spent (In Minutes): 32 Total Time Includes: Examination of the Patient, Discharge Planning and Medication Reconciliation Discharge Plan Discharge Items Patient Disposition: Home - Self-Care Reason For Visit: MN Discharge Diagnosis: MYOCARDIA INFARCTION Condition on Discharge: Fair Activity: Resume your previous activity Non-emergency contact: Primary Care Provider Call non-emergency contact if: you have any medication questions Follow-up/Referrals: Jessica Morrow PA-C [Outside Practitioners] - 04/09/20 2:20 pm PCP,NO [Primary Care Provider] - Diet: Heart Healthy Addtl Attending Provider Instructions: Patient stable from a cardiac standpoint okay for discharge later today. Home on: Aspirin 81, ticagrelor 90 mg twice daily Transition to Toprol-XL 25 mg daily Continue lisinopril 5 mg daily Continue home atorvastatin 80 mg daily Home Care: * Take your medications exactly as directed. Don't skip doses. * Remember that recovery after a heart attack takes time. Plan to rest for at lease 4-8 weeks while you recover. Then return to normal activity when your doctor says it's okay. * Ask your doctor about joining a heart rehabilitation program. * Tell your doctor if you are feeling depressed. Feelings of sadness are common after a heart attack, but it is important that you speak to someone if you are feeling overwhelmed by these feelings. * If you are having chest pain, call 911 for an ambulance. Do NOT drive yourself to the hospital. * Ask your family members to learn CPR. * Learn to take your own blood pressure and pulse. Keep a record of your results. Ask your doctor when you should seek emergency medical attention. He or she will tell you which blood pressure reading is dangerous. Lifestyle Changes: * Maintain a healthy weight. Get help to lose any extra pounds. * Cut back on salt. * Limit canned, dried, packaged, and fast foods. * Don't add salt to your food. * Season foods with herbs instead of salt when you cook. * Break the smoking habit. Enroll in a stop-smoking program to improve your chances of success. * Limit fatty foods. * Ask your doctor about having your lipid levels checked regularly. * Build up your activity according to your doctor's recommendation. * Ask your doctor when it's okay to resume sexual activity. * Try to manage stress. Follow Up: It is important for you to keep your follow up appointments with your medical provider. Pending Studies at Discharge: No Stand-Alone Forms: My [facility], Smoking Cessation Medications and DC Order Prescriptions: New lisinopril [Zestril] 5 mg Tablet 5 mg PO QAM Qty: 30 RF: 0 Brilinta 90 mg Tablet 90 mg PO BID Qty: 60 RF: 0 atorvastatin 80 mg tablet 80 mg PO HS Qty: 30 RF: 0 Continued pantoprazole 40 mg tablet,delayed release (DR/EC) See Rx Instructions .ROUTE .COMPLEX Qty: 30 RF: 0 amitriptyline 100 mg tablet 100 mg PO HS RF: 0 lorazepam 0.5 mg tablet 0.5 mg PO BID PRN (Reason: Anxiety) RF: 0 gabapentin 300 mg Capsule 300 mg PO HS RF: 0 duloxetine [Cymbalta] 60 mg Capsule,Delayed Release(Dr/Ec) 60 mg PO BID RF: 0 ondansetron HCl [Zofran] 4 mg tablet 4 mg PO Q6H PRN (Reason: nausea and vomiting) Qty: 7 RF: 0 cyclobenzaprine 10 mg tablet 10 mg PO TID RF: 0 cimetidine [Tagamet HB] 200 mg tablet 400 mg PO HS RF: 0 Linzess 290 mcg capsule 290 mcg PO DAILY RF: 0 oxycodone 5 mg Tablet 5 mg PO Q4H PRN (Reason: pain) Qty: 20 RF: 0 aripiprazole 10 mg tablet 10 mg PO HS RF: 0 aspirin [Aspirin Low Dose] 81 mg Tablet,Delayed Release (Dr/Ec) 81 mg PO DAILY RF: 0 Discontinued propranolol 40 mg tablet 40 mg PO BID RF: 0 atorvastatin 80 mg tablet 80 mg PO HS RF: 0 diclofenac sodium 50 mg tablet,delayed release (DR/EC) 50 mg PO Q12H PRN (Reason: pain) Qty: 30 RF: 0 No Action metoprolol succinate 25 mg tablet extended release 24 hr 50 mg PO PM Qty: 30 RF: 0 Discharge Orders: Discharge Order (Routine); Ordered 04/07/20 Ordered By: Sampson Jewell/Other Patient Handouts: Eating Heart-Healthy Foods, A1C Admission Data Admit Date/Time: 04/05/20 16:34 Attending Provider: Sampson Mccormack Admit Provider: Karolina Sal Primary Care Provider: PCP,NO Other Providers: Andres Floyd ; Gayla Bal ; Frandy Zhu ; Ollie Sandoval ; Karolina Sal ; Sloan King ; Vince Ybarra ; Ralph Douglas ; eNlly Carrillo ; Kimberly Mohan ; Laya Willis ; Andreas Michel ; Jessica Aguilar ; Mary Carmen Simons ; Paresh Morrow ; Cathi Bacon ; Speedy Salgado ; Aleksandr Mena ; Debora Moncada ; Skylar Whelan ; Oh Alejandre ; Frandy Harris ; Sonu Horn ; Ayana Pugh ; Ginger Pugh ; Leodan Mata ; Milo Chacon ; Delvis Perez ; Jaden Cárdenas Other Interventions: Discharge Summary Assessment (RN) Last Done: 04/07/20 12:31 Coding Level of Care Code D/C Day Management >30 mins Diagnoses Acute [place] I21.3 Involved coronary artery: unspecified coronary artery Myocardial infarction type: ST elevation myocardial infarction DARION (acute kidney injury) N17.9 Current smoker F17.200 Dyslipidemia E78.5 DVT prophylaxis Z29.9
== END 2020-04-07 13:16 | disposition home or self-care (01) | DRG 247 ==
LOC: ED 14:22 → 1E 15:11 → CC 15:11 → SUATTDRO 16:34 → 1E 16:34 → 2S 04-06 19:51
PROC: CLB.CCO (2020-04-05 14:50)